=== PATIENT | female | born 1930 ===

== ENCOUNTER 2016-10-11 16:40 | Inpatient (IN) | payer MEDICARE, OTHER ==
[2016-10-11] MEDS ORDERED: cefTRIAXone(*) 1 GM in NS 0.9% 50 ML* 50 ML IVPB ONE (17:10)
[2016-10-11] MEDS ORDERED: NS 0.9% 1000 ML* 3,000 ML IV ONE (17:10)
[2016-10-11] MEDS ORDERED: Acetaminophen TAB* 325 MG PO ONE (17:10)
[2016-10-11] MEDS ORDERED: Azithromycin IV(*) 500 MG in NS 0.9% 250 ML* 250 ML IVPB ONE (17:11)
[2016-10-11] MEDS ORDERED: Albuterol/Ipratropium NEB.SOL* Albuterol 2.5 MG/Ipratropium 0.5 MG 3 ML INH ONE (17:12)
[2016-10-11 17:27] LABS: Hematocrit 42 % (35-47); Hemoglobin 13.7 g/dl (12.0-16.0); Mean Corpuscular HGB Conc 33 g/dl (31-36); Mean Corpuscular Hemoglobin 30 pg (27-31); Mean Corpuscular Volume 91 fL (80-97); Mean Platelet Volume 8 um3 (7.4-10.4); Red Blood Count 4.59 10^6/ul (4.0-5.4); Red Cell Distribution Width 14 % (10.5-15); White Blood Count 13.1 10^3/ul (3.5-10.8)
[2016-10-11 17:30] LABS: Add Diff/Slide Review? Slide Review Added; Comments Flag Yes
[2016-10-11 17:42] LABS: Albumin 3.2 g/dL (3.2-5.2); BUN/Creatinine Ratio 30.2 (8-20); Calcium 7.5 mg/dL (8.6-10.3); EGFR African American 70.9 (>60); EGFR Non-African American 55.1 (>60); Globulin 3.7 g/dL (2-4); Potassium 3.2 mmol/L (3.5-5.0); Total Bilirubin 1.6 mg/dL (0.2-1.0); Total Protein 6.9 g/dL (6.4-8.9)
[2016-10-11 17:44] LABS: Troponin I 0.03 ng/mL (<0.04)
--- NOTE | 2016-10-11 18:03 | RAD ---
Indication: Shortness of breath, pneumonia. Cough and fever. Single frontal view of the chest performed at 1730 hours was reviewed. Comparison is made with previous exam dated June 21, 2012. No mediastinal shift is noted. Mild cardiomegaly is noted. There may BE early airspace disease in the lung bases which may represent bibasilar pneumonia. Pacemaker leads are in place. IMPRESSION: FINDINGS CONSISTENT WITH BIBASILAR PNEUMONIA IN THE LUNG BASES. PACEMAKER LEADS ARE IN PLACE.
[2016-10-11 18:08] LABS: Immature Granulocytes 13 % (0-9); Neutrophil % 64 % (38-83); Reactive Lymph % 2 % (0-6)
[2016-10-11 18:09] LABS: Hypochromasia 1+; Macrocytosis 1+; Polychromasia 1+
[2016-10-11] MEDS ORDERED: Benzonatate CAP* 100 MG PO ONE (18:17)
[2016-10-11] MEDS ORDERED: guaiFENesin LIQ* 100 MG/5 ML UDC PO ONE (18:18)
[2016-10-11 18:31] LABS: C Reactive Protein 340.21 mg/L (< 5.00)
--- NOTE | 2016-10-11 18:55 | ED ---
Susan Barnes Matthew, scribed for Song Hughes MD on 10/11/16 at 1802 . Shortness of Breath - HPI Summary HPI Summary: An 86 y/o female presents to the ED with SOB since a week ago. The patient was sent by her PCP to r/o pneumonia. Associated symptoms include cough, fever, chills, and body aches. The patient denies vomiting. She has a Hx of a pacemaker and recent DVT. She is currently on xaerlto. The patient had diarrhea after drinking boast. She received her flu shot his year. The patient lives alone. No Hx of CHF, ashtma, COPD, diabetes - History of Current Complaint Chief Complaint: EDShortnessOfBreath Hx Obtained From: Patient Onset/Duration: Gradual Onset, Lasting Weeks, Still Present Timing: Constant Current Severity: Moderate Dyspnea At: Rest Aggrevating Factors: Nothing Alleviating Factors: Nothing Associated Signs & Symptoms: Cough (Productive), Fever, Chills - Allergy/Home Medications Allergies/Adverse Reactions: Allergies Allergy/AdvReac Type Severity Reaction Status Date / Time Codeine Allergy Unknown Unknown Verified 06/21/12 22:59 Reaction Details Home Medications: Home Medications Acetaminophen TAB* [Tylenol TAB*] 650 mg PO Q6H PRN 10/11/16 [History Confirmed 10/11/16] Calcium & Phosphorus W/ Vitami [Citracal Calcium Gummies] 2 chw PO DAILY [History Confirmed 10/11/16] Oxybutynin XL TAB* [Ditropan XL TAB*] 5 - 10 mg PO DAILY 10/11/16 [History Confirmed 10/11/16] Pediatric Multiple Vitamin W/ [Multivitamin Gummies Chil] 2 chw PO DAILY [History Confirmed 10/11/16] Rivaroxaban TAB(*) [Xarelto 20 mg] 20 mg PO DAILY 10/11/16 [History Confirmed ] Sucralfate SUSP (NF) [Carafate SUSP (NF)] 5 ml PO BEDTIME 10/11/16 [History Confirmed 10/11/16] Valsartan/HCTZ 160/12.5(NF) [Diovan Hct 160/12.5(NF)] 1 tab PO DAILY 10/11/16 [ History Confirmed 10/11/16] guaiFENesin/CODIEN 100MG-10MG* [Robitussin AC 100Mg-10Mg*] 10 ml PO Q4H PRN [History Confirmed 10/11/16] PMH/Surg Hx/FS Hx/Imm Hx Cardiovascular History: Reports: Hx Hypertension, Hx Pacemaker/ICD Infectious Disease History: No Infectious Disease History: Reports: Hx Shingles Denies: Traveled Outside the [place] in Last 30 Days - Family History Family History: Medical records reviewed and indicative for FHx of longevity in her mother. Father in his 30's secondary to MVA - Social History Lives: With Family Alcohol Use: None Substance Use Type: Reports: None Hx Tobacco Use: No Review of Systems All Other Systems Reviewed And Are Negative: Yes Physical Exam - Summary Physical Exam Summary: The patient is well-nourished in no acute distress and in no acute pain. The skin is had decreased turgor. HEENT: The head is normocephalic and atraumatic. The pupils are equal and reactive. The conjunctivae are clear and without drainage. Nares are patent and without drainage. Mouth reveals dry mucous membranes and the throat is without erythema and exudate. The external ears are intact. The ear canals are patent and without drainage. The tympanic membranes are intact. Neck is supple with full range of motion and non-tender. There are no carotid bruits. There is no neck vein distension. Respiratory: Chest is non-tender. The patient has diffuse rales, rhonchi, and wheezing. Cardiovascular: Heart is regular rate and rhythm. There is a murmur appreciated. No rub auscultated. There is no peripheral edema and pulses are symmetrical and equal. Abdomen: The abdomen is soft and non-tender. There are normal bowel sounds heard in all four quadrants and there is no organomegaly palpated. Musculoskeletal: There is no back pain noted. Extremities are non-tender with full range of motion. There is 3 second capillary refill. There is no peripheral edema or calf tenderness elicited. Neurological: Patient is alert and oriented to person, place and time. The patient has symmetrical motor strength in all four extremities. Cranial nerves are grossly intact. Deep tendon reflexes are symmetrical and equal in all four extremities. Psychiatric: The patient has an appropriate affect and does not exhibit any anxiety or depression. Triage Information Reviewed: Yes Vital Signs On Initial Exam: Initial Vitals Temp Pulse Resp BP Pulse Ox 100.7 F 100 24 119/58 88 10/11/16 16:42 10/11/16 16:42 10/11/16 16:42 10/11/16 16:42 10/11/16 16:42 Vital Signs Reviewed: Yes Diagnostics - Vital Signs Vital Signs Temp Pulse Resp BP Pulse Ox 10/11/16 16:42 100.7 F 100 24 119/58 88 - Laboratory Lab Results: Lab Results 10/11/16 10/11/16 10/11/16 Range/Units 17:11 17:11 17:11 WBC 13.1 H (3.5-10.8) 10^3/ul RBC 4.59 (4.0-5.4) 10^6/ul Hgb 13.7 (12.0-16.0) g/dl Hct 42 (35-47) % MCV 91 (80-97) fL MCH 30 (27-31) pg MCHC 33 (31-36) g/dl RDW 14 (10.5-15) % Plt Count 324 (150-450) 10^3/ul MPV 8 (7.4-10.4) um3 Immature Gran % (Auto) 13 H (0-9) % Neut % (Auto) 80.7 (38-83) % Lymph % (Auto) 5.4 L (25-47) % [place] % (Auto) 13.7 H (1-9) % Eos % (Auto) 0 (0-6) % Baso % (Auto) 0.2 (0-2) % Absolute Neuts (auto) 10.6 H (1.5-7.7) 10^3/ul Absolute Lymphs (auto) 0.7 L (1.0-4.8) 10^3/ul Absolute Monos (auto) 1.8 H (0-0.8) 10^3/ul Absolute Eos (auto) 0 (0-0.6) 10^3/ul Absolute Basos (auto) 0 (0-0.2) 10^3/ul Absolute Nucleated RBC 0 10^3/ul Neutrophils % 64 (38-83) % Band Neutrophils % 13 H (0-8) % Lymphocytes % 8 L (25-47) % Reactive Lymphs % 2 (0-6) % Monocytes % 13 (0-13) % Nucleated RBC % 0 Normal RBC Morphology Not Reportable Polychromasia 1+ Hypochromasia 1+ Macrocytosis 1+ INR (Anticoag Therapy) 2.94 H (0.89-1.11) APTT 38.7 H (26.0-36.3) seconds Sodium 134 (133-145) mmol/L Potassium 3.2 L (3.5-5.0) mmol/L Chloride 99 L (101-111) mmol/L Carbon Dioxide 21 L (22-32) mmol/L Anion Gap 14 H (2-11) mmol/L BUN 29 H (6-24) mg/dL Creatinine 0.96 H (0.51-0.95) mg/dL Est GFR ( Amer) 70.9 (>60) Est GFR (Non-Af Amer) 55.1 (>60) BUN/Creatinine Ratio 30.2 H (8-20) Glucose 121 H (70-100) mg/dL Lactic Acid (0.5-2.0) mmol/L Calcium 7.5 L (8.6-10.3) mg/dL Total Bilirubin 1.60 H (0.2-1.0) mg/dL AST 28 (13-39) U/L ALT 16 (7-52) U/L Alkaline Phosphatase 90 (34-104) U/L Troponin I 0.03 (<0.04) ng/mL C-Reactive Protein 340.21 H (< 5.00) mg/L Total Protein 6.9 (6.4-8.9) g/dL Albumin 3.2 (3.2-5.2) g/dL Globulin 3.7 (2-4) g/dL Albumin/Globulin Ratio 0.9 L (1-3) Influenza A (Rapid) (Negative) Influenza B (Rapid) (Negative) 10/11/16 10/11/16 Range/Units 17:11 18:14 WBC (3.5-10.8) 10^3/ul RBC (4.0-5.4) 10^6/ul Hgb (12.0-16.0) g/dl Hct (35-47) % MCV (80-97) fL MCH (27-31) pg MCHC (31-36) g/dl RDW (10.5-15) % Plt Count (150-450) 10^3/ul MPV (7.4-10.4) um3 Immature Gran % (Auto) (0-9) % Neut % (Auto) (38-83) % Lymph % (Auto) (25-47) % [place] % (Auto) (1-9) % Eos % (Auto) (0-6) % Baso % (Auto) (0-2) % Absolute Neuts (auto) (1.5-7.7) 10^3/ul Absolute Lymphs (auto) (1.0-4.8) 10^3/ul Absolute Monos (auto) (0-0.8) 10^3/ul Absolute Eos (auto) (0-0.6) 10^3/ul Absolute Basos (auto) (0-0.2) 10^3/ul Absolute Nucleated RBC 10^3/ul Neutrophils % (38-83) % Band Neutrophils % (0-8) % Lymphocytes % (25-47) % Reactive Lymphs % (0-6) % Monocytes % (0-13) % Nucleated RBC % Normal RBC Morphology Polychromasia Hypochromasia Macrocytosis INR (Anticoag Therapy) (0.89-1.11) APTT (26.0-36.3) seconds Sodium (133-145) mmol/L Potassium (3.5-5.0) mmol/L Chloride (101-111) mmol/L Carbon Dioxide (22-32) mmol/L Anion Gap (2-11) mmol/L BUN (6-24) mg/dL Creatinine (0.51-0.95) mg/dL Est GFR ( Amer) (>60) Est GFR (Non-Af Amer) (>60) BUN/Creatinine Ratio (8-20) Glucose (70-100) mg/dL Lactic Acid 1.4 (0.5-2.0) mmol/L Calcium (8.6-10.3) mg/dL Total Bilirubin (0.2-1.0) mg/dL AST (13-39) U/L ALT (7-52) U/L Alkaline Phosphatase (34-104) U/L Troponin I (<0.04) ng/mL C-Reactive Protein (< 5.00) mg/L Total Protein (6.4-8.9) g/dL Albumin (3.2-5.2) g/dL Globulin (2-4) g/dL Albumin/Globulin Ratio (1-3) Influenza A (Rapid) Negative (Negative) Influenza B (Rapid) Negative (Negative) Result Diagrams: 10/11/16 17:11 10/11/16 17:11 Lab Statement: Any lab studies that have been ordered have been reviewed, and results considered in the medical decision making process. - Radiology CXR Xray Interpretation: Positive (See Comments) - IMPRESSION: FINDINGS CONSISTENT WITH BIBASILAR PNEUMONIA IN THE LUNG BASES. PACEMAKER LEADS ARE IN PLACE. Radiology Interpretation Completed By: Radiologist - EKG 16:58 Cardiac Rate: NL - 93 bpm EKG Interpretation: Paced Rhythm Course/Dx - Course Assessment/Plan: An 86 y/o female presents to the ED with SOB since a week ago. The patient was sent by her PCP to r/o pneumonia. Associated symptoms include cough, fever, chills, and body aches. The patient denies vomiting. CXR shows bibasilar pneumonia in the lung bases. EKG shows paced rhythm at 93 bpm. Labs were reviewed. Discussed the case with Dr. Marie who will admit the patient into their services. - Diagnoses Differential Diagnosis/HQI/PQRI: Positive: Bronchitis, VT, Pneumonia, Other - sepsis Provider Diagnoses: Pneumonia, Sepsis - Physician Notifications Discussed Care of Patient With: Dr. Marie (Hospitalist) at 18:28 -- Notified of patient's history and will admit the patinet. Discharge - Discharge Plan Condition: Stable Disposition: ADMITTED TO [facility] Referrals: Keena Isaac MD [Primary Care Provider] - The documentation as recorded by the Susan real Matthew accurately reflects the service I personally performed and the decisions made by , Song Hughes MD.
[2016-10-11] MEDS: KCL 10 MEQ/50 ML IVPREMIX* 10 MEQ/50 ML BAG IV SCH ×2 (20:12→21:29)
[2016-10-11] MEDS: NS 0.9% 1000 ML* 1,000 ML IV SCH (20:12)
[2016-10-11] MEDS: Benzocaine/Menthol LOZ* 1 LOZENGE MT PRN ×2 (20:23→23:39)
[2016-10-11] MEDS: Benzonatate CAP* 100 MG PO SCH (20:23)
[2016-10-11] MEDS: Acetaminophen TAB* 325 MG PO PRN (20:23)
[2016-10-11] MEDS: methylPREDNISolone SOD SUCC* 125 MG 2 ML VIAL IV SCH (20:37)
--- NOTE | 2016-10-11 20:47 | HP ---
HOSPITAL MEDICINE HISTORY AND PHYSICAL: DATE OF ADMISSION: 10/11/16 PRIMARY CARE PHYSICIAN: Keena Isaac MD ATTENDING PHYSICIAN: Prosper Marie MD *(dictation provided by Sheree Valente NP) . CHIEF COMPLAINT: Cough, headache, shortness of breath. HISTORY OF PRESENT ILLNESS: Ms. Tello is an 86-year-old female with a past medical history of recent diagnosis of DVT, on Xarelto as well as history of pacemaker for complete heart block, history of CVA and aortic stenosis who presents to the hospital from Dr. Isaac's office with a concern for cough, headache and shortness of breath. Ms. Tello states she has been feeling unwell for about a week. In addition to cough, headache and shortness of breath, she has had some nausea, but no vomiting. She went to Dr. Isaac's office today for evaluation. At that time, she was noted to have a fever of 102.7. She also had a O2 saturation in the low 80s on room air. Her chest x-ray at the office showed an infiltrate on the right side. She was therefore transported by EMS to [facility]. In the emergency room, Ms. Tello was found to have a leukocytosis with a white blood cell count of 13, but also bandemia of 13. Her CRP was dramatically elevated at 340.21. Her flu swab was negative. Chest x-ray repeated here shows bibasilar pneumonia. Her O2 saturation was running in the low 80s on room air. She is now on 10 L nasal cannula saturating at approximately 92%. She has a nonproductive though frequent and quite bothersome cough. Based on Ms. Tello's presentation with concern for pneumonia and acute hypoxic respiratory failure, Hospital Medicine was called regarding admission. PAST MEDICAL HISTORY: 1. DVT, diagnosed 08/30/16, currently on Xarelto (the patient has a history of previous DVT x2). 2. Pacemaker for complete heart block. 3. Hypertension. 4. Asthma. 5. Cholecystectomy. 6. History of subtotal parathyroidectomy. 7. History of aortic valve stenosis. 8. History of CVA. 9. History of shingles. 10. History of Schatzki's ring. 11. GERD. 12. Hiatal hernia. MEDICATIONS: 1. Tylenol 650 mg p.o. q.6 hours p.r.n. 2. Citracal calcium 2 chewable tabs p.o. daily. 3. Esomeprazole 40 mg p.o. b.i.d. 4. Oxybutynin 5 to 10 mg p.o. daily. 5. Multivitamin 2 chewable tabs p.o. daily. 6. Sucralfate 5 mL p.o. at bedtime. 7. Valsartan/hydrochlorothiazide 160/12.5 one tab p.o. daily. 8. Guaifenesin with codeine 10 mL p.o. q.4 hours p.r.n. 9. Rivaroxaban 20 mg p.o. daily. ALLERGIES: To CODEINE. FAMILY HISTORY: The patient reports the mother at 96 from likely heart attack. Father in his 30s in a car accident. SOCIAL HISTORY: No reported alcohol, tobacco, or drug use. The patient lives alone, states that her son would be the healthcare proxy. REVIEW OF SYSTEMS: A 14-point review of systems was completed with Ms. Tello and all those not mentioned above were negative. PHYSICAL EXAMINATION GENERAL: Ms. Tello is lying in the bed. She is coughing constantly, but in no acute distress. VITAL SIGNS: Temperature 98.6, heart rate 94, temperature on arrival was 100.7 , respiratory rate 20, O2 saturation 92% on 10 L nasal cannula, blood pressure 97/82. LUNGS: Clear, but very diminished bilaterally. HEART: S1, S2. No murmur, rub, or gallop. ABDOMEN: Soft, nontender with bowel sounds positive x4. EXTREMITIES: No cyanosis or edema. NEUROLOGIC: She is alert and oriented x3. She moves all extremities equally. There is no facial asymmetry or focal weakness. Extraocular movements are intact. SKIN: Intact. DIAGNOSTIC STUDIES/LAB DATA: Sodium 134, potassium 3.2, chloride 99, serum bicarbonate 21, BUN 29, creatinine 0.96, glucose 121. White blood cell count 13.1, hemoglobin 13.7, hematocrit 42, platelets 324. CRP 340.21. Chest x-ray shows bibasilar pneumonia. EKG shows heart rate at 90 and paced. ASSESSMENT AND PLAN: Ms. Telol is an 86-year-old female with a past medical history of pacemaker for heart block, recent deep venous thrombosis, on Xarelto and hypertension who presents today to the emergency room with concern for cough , headache, shortness of breath, found to have fever, leukocytosis with bandemia , bibasilar pneumonia on chest x-ray and acute hypoxic respiratory failure currently with 10 L oxygen requirement. Our plans are for admission to the intensive care unit for the following inpatient status. 1. Acute hypoxemic respiratory failure secondary to pneumonia. The patient is saturating approximately 92% to 93% on 10 L face mask at this point; however, she is taking it off frequently due to the severe cough. Plans are for her likely to go on for Vapotherm as I think she will be more comfortable on that through the night. I have contacted Respiratory Therapy to assess and assist with her care. For pneumonia, the patient will have ceftriaxone and azithromycin. Her lactic acid is normal. Her blood cultures have been sent. The patient's cough is almost constant. She has a history of asthma. Her CRP is dramatically elevated and she is requiring ICU admission. I think therefore she would benefit from steroids and I am starting her on Solu-Medrol 60 mg q.12 hours. In terms of her cough, she will have Robitussin and Tessalon Perles and cough drops as well. 4. History of deep venous thrombosis. Plan to continue Xarelto. 5. History of hypertension. Plan to hold hydrochlorothiazide. 6. DVT prophylaxis with Xarelto, which will be renally dosed. 7. Code status is DNR, but the patient will accept a trial of intubation. 8. Disposition to ICU. TIME SPENT: Approximately 75 minutes were spent on the admission of this patient, more than half the time was spent with the patient at the bedside reviewing the events leading up to this hospitalization, performing the physical examination, and reviewing my plan of care. SHEREE VALENTE NP CC: Dr. Keena Isaac* [id number]/[facility] #: [id number] JAIRO
[2016-10-11] MEDS: GuaiFENesin DM* 5 ML UDC PO PRN (22:00)
[2016-10-11] MEDS ORDERED: diPHENhydraMINE IV* 50 MG/ML 1 ml VIAL (BENADRYL) IV ONE (23:43)
[2016-10-11] MEDS ORDERED: diPHENhydraMINE IV* 50 MG/ML 1 ml VIAL (BENADRYL) ONE (23:45)
[2016-10-12] MEDS: Benzonatate CAP* 100 MG PO SCH ×4 (00:33→20:28)
[2016-10-12] MEDS ORDERED: Morphine INJ* 2 MG/ML 1 ML SYRINGE ONE (02:33)
[2016-10-12] MEDS: Morphine INJ* 2 MG/ML 1 ML SYRINGE IV PRN ×3 (02:40→22:53)
[2016-10-12] MEDS: NS 0.9% 1000 ML* 1,000 ML IV SCH ×3 (02:55→16:22)
[2016-10-12] MEDS: GuaiFENesin DM* 5 ML UDC PO PRN ×4 (05:01→19:21)
[2016-10-12 06:57] LABS: Hematocrit 39 % (35-47); Hemoglobin 13.1 g/dl (12.0-16.0); Mean Corpuscular HGB Conc 33 g/dl (31-36); Mean Corpuscular Hemoglobin 31 pg (27-31); Mean Corpuscular Volume 92 fL (80-97); Mean Platelet Volume 8 um3 (7.4-10.4); Red Blood Count 4.28 10^6/ul (4.0-5.4); Red Cell Distribution Width 14 % (10.5-15); White Blood Count 9.6 10^3/ul (3.5-10.8)
[2016-10-12 07:00] LABS: Add Diff/Slide Review? Slide Review Added; Comments Flag Yes
[2016-10-12 07:24] LABS: BUN/Creatinine Ratio 31.3 (8-20); EGFR African American 107.3 (>60); EGFR Non-African American 83.5 (>60); Potassium 3.9 mmol/L (3.5-5.0)
[2016-10-12 07:34] LABS: Calcium 6.3 mg/dL (8.6-10.3)
[2016-10-12] MEDS: Omeprazole CAP* 20 MG PO SCH (08:03)
[2016-10-12] MEDS: methylPREDNISolone SOD SUCC* 125 MG 2 ML VIAL IV SCH ×2 (08:03→20:28)
[2016-10-12] MEDS: Benzocaine/Menthol LOZ* 1 LOZENGE MT PRN ×2 (08:04→22:27)
[2016-10-12] MEDS ORDERED: Iohexol 350* (CONTRAST) 500 ML MDV IV ONE (12:21)
--- NOTE | 2016-10-12 13:29 | RAD ---
Indication: Dyspnea and hypoxia with recent deep venous thrombosis. Contrast: Administered 69.1 ml of OMNIPAQUE 350 mg/ml CTA of the chest was performed without IV contrast demonstration. Coronal and sagittal reconstructed images were obtained. The pulmonary arterial tree is well opacified. There are no filling defects present to suggest pulmonary embolus. Inferior thyroid lobes are unremarkable. Subcarinal lymph nodes measure up to 12 mm. Right hilar lymph node measures up to 13 mm. Heart demonstrates no pericardial effusion. There is dense consolidation in the lung bases bilaterally consistent with bibasilar pneumonia. No pleural fluid is identified. The aorta demonstrates no evidence of aortic dissection. No aneurysmal dilatation. There is a hiatal hernia noted. The visualized abdominal organs are unremarkable. IMPRESSION: BIBASILAR AIRSPACE DISEASE CONSISTENT WITH BILATERAL PNEUMONIA. NO EVIDENCE OF PULMONARY EMBOLUS IS NOTED. THERE IS A HIATAL HERNIA NOTED.
[2016-10-12] MEDS: oxyCODONE TAB* 5 MG TAB PO PRN ×2 (14:36→20:28)
--- NOTE | 2016-10-12 15:24 | ECHO ---
Patient: TRUMAN COOPER [facility] Rec#: [id number] : 1930 Date: 10/12/2016 Age: 86y Height: 157 cm / 61.8 in Weight: 78 kg / 171.9 lbs Sex: F BSA: 1.79 Room#: [facility] Admit Date#: 10/11/2016 Type: Inpatient Referring: Pinky Duenas MD Reading: Chaz Vaca DO Reading: Chaz Vaca DO Arch Support Maker: Tony Stallworth RDCS CC: Keena Isaac MD Transthoracic Echocardiogram Indication: Dypnea,Hypoxia BP: 134/66 HR: 72 Rhythm: NSR Findings History: HTN,CVA,GERD,Pacemarker,completed heart block. Technical Comments: The study quality is fair. Left Ventricle: The left ventricular chamber size is normal. Mild concentric left ventricular hypertrophy is observed. There is normal left ventricular systolic function. The estimated ejection fraction is 55-60%. There is abnormal ventricular septal wall motion consistent with right ventricular pacemaker. Abnormal left ventricular diastolic filling is observed, consistent with impaired relaxation. Left Atrium: The left atrial chamber size is normal. Right Ventricle: The right ventricular chamber size and systolic function are within normal limits. A pacemaker wire is visualized in the right ventricle. Right Atrium: The right atrial cavity size is normal. Aortic Valve: The aortic valve structure is normal. Moderate aortic leaflet calcification is visualized. There is aortic annular calcification. There is no evidence of aortic regurgitation. There is mild aortic stenosis. Mitral Valve: Moderate mitral annular calcification present. There is mild to moderate mitral regurgitation. There is no evidence of mitral stenosis. Tricuspid Valve: There is mild to moderate tricuspid regurgitation. There is evidence of mild pulmonary hypertension. There is no tricuspid stenosis. Pulmonic Valve: The pulmonic valve structure is not well visualized. There is a trace pulmonic regurgitation. There is no pulmonic stenosis. Pericardium: There is no significant pericardial effusion. Aorta: There is no dilatation of the ascending aorta. There is no dilatation of the aortic arch. There is no dilation of the aortic root. Pulmonary Artery: The main pulmonary artery is not well visualized. Venous: The inferior vena cava is dilated. There is a greater than 50% respiratory change in the inferior vena cava dimension. Conclusions The left ventricular chamber size is normal. Mild concentric left ventricular hypertrophy is observed. There is normal left ventricular systolic function. The estimated ejection fraction is 55-60%. The left atrial chamber size is normal. The right ventricular chamber size and systolic function are within normal limits. A pacemaker wire is visualized in the right ventricle. There is mild aortic stenosis. Moderate mitral annular calcification present. There is mild to moderate mitral regurgitation. There is mild aortic stenosis. There is evidence of mild pulmonary hypertension. There is mild to moderate tricuspid regurgitation. No prior echocardiogram available for comparsion at time of interpretation. Measurements Name Value Normal Range RVIDd (AP) 2D 2.2 cm (0.9 - 2.6) RVDdMajor (2D) 2.6 cm (2.2 - 4.4) RAd ISD 4CH 5.1 cm (3.4 - 4.9) RA (A4C)W 3.5 cm (2.9 - 4.6) IVSd (2D) 1.3 cm (0.6 - 1) LVPWd (2D) 0.8 cm (0.6 - 1) LVIDd (2D) 4.3 cm (3.6 - 5.4) LVIDs (2D) 3.1 cm - LV FS (2D) 27 % (25 - 45) Aortic Annulus 1.4 cm (1.4 - 2.6) Ao root diameter (2D) 3.3 cm (2.1 - 3.5) Ascending Ao 3.2 cm (2.1 - 3.4) Aortic arch 1.5 cm (1.8 - 3.4) LA dimension (AP) 2D 3.7 cm (2.3 - 3.8) LAd ISD 4CH 5.9 cm (2.9 - 5.3) LA ISD 4CH W 3.2 cm (2.5 - 4.5) Name Value Normal Range LA ESV SP 4CH (A/L) 52 ml - LA ESV SP 2CH (A/L) 52 ml - LA ESV BP (A/L) 53 ml - LA ESV BP (A/L) index 29.66 ml/m2 - LA ESV SP 4CH (MOD) 47 ml - LA ESV SP 2CH (MOD) 49 ml - Name Value Normal Range MV E-wave Vmax 0.85 m/sec - MV deceleration time 137 msec - MV A-wave Vmax 1.09 m/sec - MV E:A ratio 0.78 ratio - LV septal e' Vmax 0.08 m/sec - LV lateral e' Vmax 0.08 m/sec - LV E:e' septal ratio 10.6 ratio - LV E:e' lateral ratio 10.6 ratio - Name Value Normal Range AV Vmax 2.1 m/sec - AV mean gradient 12 mmHg - LVOT diameter 1.5 cm - LVOT Vmax 0.9 m/sec - Name Value Normal Range TR Vmax 2.7 m/sec - TR peak gradient 23 mmHg - RAP 45 mmHg - RVSP 44.16 mmHg - IVC diameter 2.5 cm - Name Value Normal Range PV Vmax 0.6 m/sec -
--- NOTE | 2016-10-12 15:42 | PN ---
Subjective Date of Service: 10/12/16 Interval History: HOSPITALIST PROGRESS NOTE Patient seen and examined at bedside. She feels a little better this AM. Still dyspneic, but a little more comfortable. Cough is less frequent at this point. Family History: Unchanged from Admission Social History: Unchanged from Admission Past Medical History: Unchanged from Admission Objective Active Medications: Acetaminophen (Tylenol Tab*) 650 mg PO Q6H PRN PRN Reason: pain/fever Last Admin: 10/11/16 20:23 Dose: 650 mg Benzonatate (Tessalon Cap*) 200 mg PO TID [facility] Last Admin: 10/12/16 15:36 Dose: 200 mg Guaifenesin/Dextromethorphan (Robitussin Dm*) 10 ml PO Q4H PRN PRN Reason: COUGH Last Admin: 10/12/16 14:36 Dose: 10 ml Ceftriaxone Sodium 1,000 mg/ (Sodium Chloride) 50 mls @ 200 mls/hr IVPB Q24H [facility] Azithromycin 500 mg/ Sodium (Chloride) 250 mls @ 250 mls/hr IVPB Q24H [facility] Sodium Chloride (Ns 0.9% 1000 Ml*) 1,000 mls @ 150 mls/hr IV PER RATE [facility] Last Admin: 10/12/16 08:03 Dose: 150 mls/hr Methylprednisolone Sodium Succinate (Solu-Medrol*) 60 mg IV Q12H [facility] Last Admin: 10/12/16 08:03 Dose: 60 mg Morphine Sulfate (Morphine Inj (Syringe)*) 2 mg IV Q2H PRN PRN Reason: air hunger Last Admin: 10/12/16 02:40 Dose: 2 mg Omeprazole (Prilosec Cap*) 20 mg PO DAILY@0600 [facility] Last Admin: 10/12/16 08:03 Dose: 20 mg Oxycodone HCl (Roxycodone Tab*) 5 mg PO Q6H PRN PRN Reason: Severe cough/Severe pain Last Admin: 10/12/16 14:36 Dose: 5 mg Rivaroxaban (Xarelto(*)) 15 mg PO 1700 [facility] Throat Lozenges (Chloraseptic Kaykay*) 1 kaykay MT Q4H PRN PRN Reason: COUGH Last Admin: 10/12/16 08:04 Dose: 1 kaykay Vital Signs 02/24/17 02/24/17 14:00 15:00 Temperature 98.0 F 97.4 F Pulse Rate 75 69 Respiratory 18 Rate Blood Pressure (mmHg) O2 Sat by Pulse 88 90 Oximetry Oxygen Devices in Use Now: High Flow Nasal Cannula - [place] 13 liters Appearance: Pleasant elderly lady lying in bed in NAD. Eyes: No Scleral Icterus Ears/Nose/Mouth/Throat: Mucous Membranes Moist Neck: Trachea Midline Respiratory: Symmetrical Chest Expansion and Respiratory Effort, - - BS+ bilaterally coarse with scattered rhonchi Cardiovascular: RRR - Normal S1 and S2 Abdominal: NL Sounds; No Tenderness; No Distention Extremities: No Edema Neurological: Alert and Oriented x 3, NL Muscle Strength and Tone Lines/Tubes/Other Access: Clean, Dry and Intact Peripheral IV Nutrition: Taking PO's Result Diagrams: 10/12/16 06:31 10/12/16 06:31 Assess/Plan/Problems-Billing Assessment: Mrs. 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 - Patient Problems (1) Acute hypoxemic respiratory failure Comment: - Secondary to pneumonia. - Continue supplemental O2 - will likely need Vapotherm. (2) Severe sepsis Comment: - Met sepsis criteria on admission with leukocytosis (with bandemia), tachypnea, fever, and tachycardia. - qSOFA is 1 (tachypnea). - Source is pneumonia. (3) Pneumonia Comment: - CTA chest was negative for PE. It showed bibasilar infiltrates suggestive of pneumonia. - Influenza is negative. - Blood cultures, Legionella and pneumococcal Ag pending. - Continue IVF, Ceftriaxone, Zithromax, and steroids. (4) SWAPNIL (acute kidney injury) Comment: - Likely pre-renal. - Improving with IVF. (5) DVT (deep venous thrombosis) Comment: - Continue Xarelto, but adjust dose to improving renal function. (6) Hypocalcemia Comment: - Check albumin and ionized calcium. (7) DVT prophylaxis Comment: - Xarelto. (8) DNR (do not resuscitate) Comment: - But agreeable with trial of intubation. Status and Disposition: Inpatient. Continue management in ICU. Son updated at bedside.
[2016-10-12] MEDS: cefTRIAXone VIAL(*) 1,000 MG in NS 0.9% 50 ML* 50 ML IVPB SCH (16:23)
[2016-10-12 16:24] LABS: Albumin 2.7 g/dL (3.2-5.2)
[2016-10-12] MEDS ORDERED: Calcium Gluconate INJ* 1 GM in NS 0.9% 50 ML* 50 ML IVPB ONE (16:30)
[2016-10-12] MEDS ORDERED: Rivaroxaban TAB(*) 15 MG PO SCH (17:00)
[2016-10-12] MEDS: Azithromycin IV(*) 500 MG in NS 0.9% 250 ML* 250 ML IVPB SCH (17:09)
[2016-10-12 17:26] LABS: Urine Bacteria Absent (Absent); Urine Bilirubin Negative (Negative); Urine Glucose Negative (Negative); Urine Nitrite Negative (Negative)
[2016-10-12] MEDS: Rivaroxaban TAB(*) 20 MG TAB PO SCH (18:04)
--- NOTE | 2016-10-12 19:07 | PN ---
Hospitalist Progress Note HOSPITALIST ADDENDUM Patient reevaluated at bedside. She is much more comfortable now on Vapotherm. Cough is controlled and she is feeling less dyspneic. PE: pleasant lady sitting up in bed eating dinner. SO2 96% on Vapotherm 40 liters FiO2 100%. Chest: BS+ bilaterally with bibasilar crackles. Will continue to monitor closely in ICU.
[2016-10-13] MEDS: Morphine INJ* 2 MG/ML 1 ML SYRINGE IV PRN ×6 (01:28→23:46)
[2016-10-13] MEDS: Benzocaine/Menthol LOZ* 1 LOZENGE MT PRN ×5 (03:08→22:19)
[2016-10-13] MEDS: oxyCODONE TAB* 5 MG TAB PO PRN ×3 (03:08→23:02)
[2016-10-13] MEDS: GuaiFENesin DM* 5 ML UDC PO PRN ×4 (03:09→21:55)
[2016-10-13 05:37] LABS: Hematocrit 40 % (35-47); Hemoglobin 13.2 g/dl (12.0-16.0); Mean Corpuscular HGB Conc 33 g/dl (31-36); Mean Corpuscular Hemoglobin 30 pg (27-31); Mean Corpuscular Volume 92 fL (80-97); Mean Platelet Volume 8 um3 (7.4-10.4); Red Blood Count 4.35 10^6/ul (4.0-5.4); Red Cell Distribution Width 15 % (10.5-15); White Blood Count 13.8 10^3/ul (3.5-10.8)
[2016-10-13 05:40] LABS: Add Diff/Slide Review? Slide Review Added; Comments Flag Yes
[2016-10-13 06:03] LABS: Albumin 2.7 g/dL (3.2-5.2); BUN/Creatinine Ratio 32.8 (8-20); C Reactive Protein 221.99 mg/L (< 5.00); Calcium 6.7 mg/dL (8.6-10.3); EGFR African American 113.2 (>60); Globulin 3.3 g/dL (2-4); Potassium 4.5 mmol/L (3.5-5.0); Total Bilirubin 0.5 mg/dL (0.2-1.0)
[2016-10-13] MEDS: Omeprazole CAP* 20 MG PO SCH (06:15)
[2016-10-13] MEDS: Benzonatate CAP* 100 MG PO SCH ×3 (09:10→20:04)
[2016-10-13] MEDS: methylPREDNISolone SOD SUCC* 125 MG 2 ML VIAL IV SCH ×2 (09:10→19:42)
--- NOTE | 2016-10-13 13:32 | PN ---
Subjective Date of Service: 10/13/16 Interval History: HOSPITALIST PROGRESS NOTE Patient seen and examined at bedside. She feels better today. Still has cough, but less frequent, feels comfortable with Vapotherm. Last night was the first night she was able to sleep in rest in a while. Family History: Unchanged from Admission Social History: Unchanged from Admission Past Medical History: Unchanged from Admission Objective Active Medications: Acetaminophen (Tylenol Tab*) 650 mg PO Q6H PRN PRN Reason: pain/fever Last Admin: 10/11/16 20:23 Dose: 650 mg Benzonatate (Tessalon Cap*) 200 mg PO TID [facility] Last Admin: 10/13/16 09:10 Dose: 200 mg Guaifenesin/Dextromethorphan (Robitussin Dm*) 10 ml PO Q4H PRN PRN Reason: COUGH Last Admin: 10/13/16 03:09 Dose: 10 ml Ceftriaxone Sodium 1,000 mg/ (Sodium Chloride) 50 mls @ 200 mls/hr IVPB Q24H [facility] Last Admin: 10/12/16 16:23 Dose: 200 mls/hr Azithromycin 500 mg/ Sodium (Chloride) 250 mls @ 250 mls/hr IVPB Q24H [facility] Last Admin: 10/12/16 17:09 Dose: 250 mls/hr Sodium Chloride (Ns 0.9% 1000 Ml*) 1,000 mls @ 100 mls/hr IV PER RATE [facility] Last Admin: 10/12/16 16:22 Dose: 100 mls/hr Methylprednisolone Sodium Succinate (Solu-Medrol*) 60 mg IV Q12H [facility] Last Admin: 10/13/16 09:10 Dose: 60 mg Morphine Sulfate (Morphine Inj (Syringe)*) 2 mg IV Q2H PRN PRN Reason: air hunger Last Admin: 10/13/16 09:10 Dose: 2 mg Omeprazole (Prilosec Cap*) 20 mg PO DAILY@0600 [facility] Last Admin: 10/13/16 06:15 Dose: 20 mg Oxycodone HCl (Roxycodone Tab*) 5 mg PO Q6H PRN PRN Reason: Severe cough/Severe pain Last Admin: 10/13/16 03:08 Dose: 5 mg Rivaroxaban (Xarelto (*)) 20 mg PO DAILY@1700 [facility] Last Admin: 10/12/16 18:04 Dose: 20 mg Throat Lozenges (Chloraseptic Kaykay*) 1 kaykay MT Q4H PRN PRN Reason: COUGH Last Admin: 10/13/16 09:10 Dose: 1 kaykay Vital Signs 10/13/16 10/13/16 11:00 12:00 Temperature 97.9 F 97.5 F Pulse Rate 66 60 Respiratory 19 18 Rate Blood Pressure 124/89 121/67 (mmHg) O2 Sat by Pulse 92 90 Oximetry Oxygen Devices in Use Now: High Flow Nasal Cannula - Vapotherm 40 liters FiO2 100% Appearance: Pleasant elderly lady sitting up in bed in NAD. Eyes: No Scleral Icterus Ears/Nose/Mouth/Throat: Mucous Membranes Moist Neck: Trachea Midline Respiratory: Symmetrical Chest Expansion and Respiratory Effort, - - BS+ bilaterally with scattered rhonchi, decreased in both bases Cardiovascular: RRR - Normal S1 and S2 Abdominal: NL Sounds; No Tenderness; No Distention Extremities: No Edema Neurological: Alert and Oriented x 3, NL Muscle Strength and Tone Lines/Tubes/Other Access: Clean, Dry and Intact Peripheral IV Nutrition: Taking PO's Result Diagrams: 10/13/16 05:20 10/13/16 05:20 Microbiology and Other Data: Microbiology 10/12/16 17:00 Legionella Urinary Antigen - Final Urine Negative Legionella Streptococcus pneumoniae Ag Screen - Final Negative S. pneumo Antigen 10/11/16 20:19 Aerobic Blood Culture - Preliminary Blood Venous No Growth Day 1 Anaerobic Blood Culture - Preliminary No Growth Day 1 Assess/Plan/Problems-Billing Assessment: Mrs. 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 - Patient Problems (1) Acute hypoxemic respiratory failure Comment: - Secondary to pneumonia. - Continue supplemental O2 - will try to titrate Vapotherm down. (2) Severe sepsis Comment: - Met sepsis criteria on admission with leukocytosis (with bandemia), tachypnea, fever, and tachycardia. - qSOFA is 1 (tachypnea). - Source is pneumonia. (3) Pneumonia Comment: - CTA chest was negative for PE. It showed bibasilar infiltrates suggestive of pneumonia. - Influenza is negative. - Blood cultures show no growth so far, Legionella and pneumococcal Ag are negative. - Continue IVF, Ceftriaxone, Zithromax, and steroids. (4) SWAPNIL (acute kidney injury) Comment: - Likely pre-renal. - Improving with IVF. (5) DVT (deep venous thrombosis) Comment: - Xarelto. (6) Hypocalcemia Comment: - Check albumin and ionized calcium. - Replete. (7) DVT prophylaxis Comment: - Xarelto. (8) DNR (do not resuscitate) Comment: - But agreeable with trial of intubation. Status and Disposition: Inpatient. Continue management in ICU.
[2016-10-13] MEDS ORDERED: Calcium Gluconate INJ* 1 GM in NS 0.9% 50 ML* 50 ML IVPB ONE (14:00)
[2016-10-13] MEDS: cefTRIAXone VIAL(*) 1,000 MG in NS 0.9% 50 ML* 50 ML IVPB SCH (16:13)
[2016-10-13] MEDS: Azithromycin IV(*) 500 MG in NS 0.9% 250 ML* 250 ML IVPB SCH (17:13)
[2016-10-13] MEDS: Rivaroxaban TAB(*) 20 MG TAB PO SCH (17:13)
[2016-10-14] MEDS: NS 0.9% 1000 ML* 1,000 ML IV SCH ×2 (00:47→11:39)
[2016-10-14] MEDS: Morphine INJ* 2 MG/ML 1 ML SYRINGE IV PRN ×5 (02:07→20:02)
[2016-10-14] MEDS: GuaiFENesin DM* 5 ML UDC PO PRN ×3 (02:42→14:23)
[2016-10-14] MEDS: Benzocaine/Menthol LOZ* 1 LOZENGE MT PRN ×3 (02:42→14:23)
[2016-10-14 04:39] LABS: Hematocrit 39 % (35-47); Hemoglobin 12.7 g/dl (12.0-16.0); Mean Corpuscular HGB Conc 33 g/dl (31-36); Mean Corpuscular Hemoglobin 30 pg (27-31); Mean Corpuscular Volume 93 fL (80-97); Mean Platelet Volume 8 um3 (7.4-10.4); Red Cell Distribution Width 15 % (10.5-15); White Blood Count 16.9 10^3/ul (3.5-10.8)
[2016-10-14 04:55] LABS: BUN/Creatinine Ratio 32.8 (8-20); C Reactive Protein 118.39 mg/L (< 5.00); Calcium 6.5 mg/dL (8.6-10.3); EGFR African American 113.2 (>60); Potassium 4.4 mmol/L (3.5-5.0)
[2016-10-14] MEDS: Omeprazole CAP* 20 MG PO SCH (05:50)
--- NOTE | 2016-10-14 08:20 | PN ---
Subjective Date of Service: 10/14/16 Interval History: HOSPITALIST PROGRESS NOTE Patient seen and examined at bedside. Her oxygen was weaned down to FiO2 60% yesterday during the day, but she had higher requirements during the night and is now back at 90%. She feels much improved. Feels comfortable, "I slept like a log". Major complaint is of dry cough paroxysms. Family History: Unchanged from Admission Social History: Unchanged from Admission Past Medical History: Unchanged from Admission Objective Active Medications: Acetaminophen (Tylenol Tab*) 650 mg PO Q6H PRN PRN Reason: pain/fever Last Admin: 10/11/16 20:23 Dose: 650 mg Benzonatate (Tessalon Cap*) 200 mg PO TID [facility] Last Admin: 10/13/16 20:04 Dose: 200 mg Guaifenesin/Dextromethorphan (Robitussin Dm*) 10 ml PO Q4H PRN PRN Reason: COUGH Last Admin: 10/14/16 02:42 Dose: 10 ml Ceftriaxone Sodium 1,000 mg/ (Sodium Chloride) 50 mls @ 200 mls/hr IVPB Q24H [facility] Last Admin: 10/13/16 16:13 Dose: 200 mls/hr Azithromycin 500 mg/ Sodium (Chloride) 250 mls @ 250 mls/hr IVPB Q24H [facility] Last Admin: 10/13/16 17:13 Dose: 250 mls/hr Sodium Chloride (Ns 0.9% 1000 Ml*) 1,000 mls @ 100 mls/hr IV PER RATE [facility] Last Admin: 10/14/16 00:47 Dose: 100 mls/hr Calcium Gluconate 2 gm/ Sodium (Chloride) 120 mls @ 120 mls/hr IV ONCE ONE Stop: 10/14/16 08:29 Methylprednisolone Sodium Succinate (Solu-Medrol*) 40 mg IV Q12H [facility] Morphine Sulfate (Morphine Inj (Syringe)*) 2 mg IV Q2H PRN PRN Reason: air hunger Last Admin: 10/14/16 04:13 Dose: 2 mg Omeprazole (Prilosec Cap*) 20 mg PO DAILY@0600 [facility] Last Admin: 10/14/16 05:50 Dose: 20 mg Oxycodone HCl (Roxycodone Tab*) 5 mg PO Q6H PRN PRN Reason: Severe cough/Severe pain Last Admin: 10/13/16 23:02 Dose: 5 mg Rivaroxaban (Xarelto (*)) 20 mg PO DAILY@1700 [facility] Last Admin: 10/13/16 17:13 Dose: 20 mg Throat Lozenges (Chloraseptic Kaykay*) 1 kaykay MT Q4H PRN PRN Reason: COUGH Last Admin: 10/14/16 02:42 Dose: 1 kaykay Vital Signs 10/14/16 10/14/16 10/14/16 05:00 06:00 06:04 Temperature 96.6 F 96.9 F 96.9 F Pulse Rate 72 77 73 Respiratory 21 22 19 Rate Blood Pressure 137/62 142/61 (mmHg) O2 Sat by Pulse 92 95 94 Oximetry Oxygen Devices in Use Now: High Flow Nasal Cannula - Vapotherm 40 liters FiO2 90 % Appearance: Pleasant elderly lady sitting up in bed in NAD. Eyes: No Scleral Icterus Ears/Nose/Mouth/Throat: Mucous Membranes Moist Neck: Trachea Midline Respiratory: Symmetrical Chest Expansion and Respiratory Effort, - - BS+ bilaterally with scattered bilateral rhonchi, decreased in right base Cardiovascular: RRR - Normal S1 and S2 Abdominal: NL Sounds; No Tenderness; No Distention Extremities: No Edema Neurological: Alert and Oriented x 3, NL Muscle Strength and Tone Lines/Tubes/Other Access: Clean, Dry and Intact Peripheral IV Nutrition: Taking PO's Result Diagrams: 10/14/16 04:34 10/14/16 04:34 Assess/Plan/Problems-Billing Assessment: Mrs. 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 - Patient Problems (1) Acute hypoxemic respiratory failure Comment: - Secondary to pneumonia. - Continue supplemental O2 - will try to titrate Vapotherm down. (2) Severe sepsis Comment: - Met sepsis criteria on admission with leukocytosis (with bandemia), tachypnea, fever, and tachycardia. - qSOFA was 1 (tachypnea). - Source is pneumonia. (3) Pneumonia Comment: - CTA chest was negative for PE. It showed bibasilar infiltrates suggestive of pneumonia. - Influenza is negative. - Blood cultures show no growth so far, Legionella and pneumococcal Ag are negative. - Continue IVF, Ceftriaxone, Zithromax, and steroids. - Leukocytosis is fluctuating up and down, likely secondary to steroids, but bandemia is resolved. - Remains afebrile. - Will repeat CxR in AM and request Pulmonology evaluation. - Incentive spirometry. (4) SWAPNIL (acute kidney injury) Comment: - Likely pre-renal. - Urine output is improving and her fluid balance was positive almost 4 liters over the past 24h. - Decrease IVF. (5) Hematuria Comment: - Secondary to Santana catheter in the setting of Xarelto use. - Will continue to monitor UO today, but will likely d/c Santana tomorrow. (6) DVT (deep venous thrombosis) Comment: - Xarelto. (7) Hypocalcemia Comment: - Check albumin and ionized calcium. - Replete. (8) DVT prophylaxis Comment: - Xarelto. (9) DNR (do not resuscitate) Comment: - But agreeable with trial of intubation. Status and Disposition: Inpatient. Continue management in ICU.
[2016-10-14] MEDS: Benzonatate CAP* 100 MG PO SCH ×3 (10:01→20:02)
[2016-10-14] MEDS: methylPREDNISolone SOD SUCC* 40 MG/ML VIAL IV SCH ×2 (10:02→20:02)
[2016-10-14] MEDS: cefTRIAXone VIAL(*) 1,000 MG in NS 0.9% 50 ML* 50 ML IVPB SCH (16:23)
[2016-10-14] MEDS: Azithromycin IV(*) 500 MG in NS 0.9% 250 ML* 250 ML IVPB SCH (17:15)
[2016-10-14] MEDS: Rivaroxaban TAB(*) 20 MG TAB PO SCH (18:19)
[2016-10-14] MEDS: Calcium Carbonate CHEW TAB* 500 MG (TUMS) PO PRN (18:40)
[2016-10-15] MEDS: GuaiFENesin DM* 5 ML UDC PO PRN ×3 (00:34→13:10)
[2016-10-15] MEDS: oxyCODONE TAB* 5 MG TAB PO PRN ×3 (02:23→13:11)
[2016-10-15] MEDS: Morphine INJ* 2 MG/ML 1 ML SYRINGE IV PRN ×2 (02:23→14:19)
[2016-10-15 04:44] LABS: Hematocrit 39 % (35-47); Hemoglobin 12.8 g/dl (12.0-16.0); Mean Corpuscular HGB Conc 33 g/dl (31-36); Mean Corpuscular Hemoglobin 30 pg (27-31); Mean Corpuscular Volume 91 fL (80-97); Mean Platelet Volume 8 um3 (7.4-10.4); Red Blood Count 4.24 10^6/ul (4.0-5.4); Red Cell Distribution Width 15 % (10.5-15); White Blood Count 16.7 10^3/ul (3.5-10.8)
[2016-10-15 04:48] LABS: Comments Flag Yes
[2016-10-15 04:49] LABS: Add Diff/Slide Review? Slide Review Added
[2016-10-15 04:52] LABS: BUN/Creatinine Ratio 35.3 (8-20); C Reactive Protein 93.91 mg/L (< 5.00); Calcium 6.8 mg/dL (8.6-10.3); EGFR Non-African American 114.3 (>60); Potassium 4.1 mmol/L (3.5-5.0)
[2016-10-15] MEDS: Omeprazole CAP* 20 MG PO SCH (06:27)
--- NOTE | 2016-10-15 07:51 | RAD ---
INDICATION: Pneumonia. COMPARISON: Comparison is made with a prior chest x-ray study from October 11, 2016. TECHNIQUE: A portable view of the chest was obtained. FINDINGS: There is a dual-chamber transvenous pacemaker present. The heart appears mildly prominent and unchanged. There are infiltrates scattered within both lungs which have progressed from the prior study. No pleural effusion is seen. IMPRESSION: BILATERAL INFILTRATES DEMONSTRATING INTERVAL PROGRESSION.
[2016-10-15] MEDS: NS 0.9% 1000 ML* 1,000 ML IV SCH (08:06)
[2016-10-15] MEDS: methylPREDNISolone SOD SUCC* 40 MG/ML VIAL IV SCH ×2 (08:09→20:10)
[2016-10-15] MEDS: Benzonatate CAP* 100 MG PO SCH ×3 (08:09→20:09)
[2016-10-15 09:35] LABS: Albumin 2.5 g/dL (3.2-5.2); Magnesium 1.7 mg/dL (1.9-2.7)
[2016-10-15] MEDS ORDERED: Magnesium Sulfate 2 GM IV* 2 GM/50 ML BAG IVPB ONE (10:02)
--- NOTE | 2016-10-15 10:08 | PN ---
Subjective Date of Service: 10/15/16 Interval History: HOSPITALIST PROGRESS NOTE Patient seen and examined at bedside. She feels well this AM, in good spirits. Was able to sleep last night, coughing fits are less frequent. Family History: Unchanged from Admission Social History: Unchanged from Admission Past Medical History: Unchanged from Admission Objective Active Medications: Acetaminophen (Tylenol Tab*) 650 mg PO Q6H PRN PRN Reason: pain/fever Last Admin: 10/11/16 20:23 Dose: 650 mg Benzonatate (Tessalon Cap*) 200 mg PO TID [facility] Last Admin: 10/15/16 08:09 Dose: 200 mg Calcium Carbonate (Tums*) 500 mg PO TID PRN PRN Reason: HEARTBURN Last Admin: 10/14/16 18:40 Dose: 500 mg Guaifenesin/Dextromethorphan (Robitussin Dm*) 10 ml PO Q4H PRN PRN Reason: COUGH Last Admin: 10/15/16 08:23 Dose: 10 ml Ceftriaxone Sodium 1,000 mg/ (Sodium Chloride) 50 mls @ 200 mls/hr IVPB Q24H [facility] Last Admin: 10/14/16 16:23 Dose: 200 mls/hr Azithromycin 500 mg/ Sodium (Chloride) 250 mls @ 250 mls/hr IVPB Q24H [facility] Last Admin: 10/14/16 17:15 Dose: 250 mls/hr Sodium Chloride (Ns 0.9% 1000 Ml*) 1,000 mls @ 50 mls/hr IV PER RATE [facility] Last Admin: 10/15/16 08:06 Dose: 50 mls/hr Methylprednisolone Sodium Succinate (Solu-Medrol*) 40 mg IV Q12H [facility] Last Admin: 10/15/16 08:09 Dose: 40 mg Morphine Sulfate (Morphine Inj (Syringe)*) 2 mg IV Q2H PRN PRN Reason: air hunger Last Admin: 10/15/16 02:23 Dose: 2 mg Omeprazole (Prilosec Cap*) 20 mg PO DAILY@0600 [facility] Last Admin: 10/15/16 06:27 Dose: 20 mg Oxycodone HCl (Roxycodone Tab*) 5 mg PO Q6H PRN PRN Reason: Severe cough/Severe pain Last Admin: 10/15/16 02:23 Dose: 5 mg Rivaroxaban (Xarelto (*)) 20 mg PO DAILY@1700 [facility] Last Admin: 10/14/16 18:19 Dose: 20 mg Throat Lozenges (Chloraseptic Kaykay*) 1 kaykay MT Q4H PRN PRN Reason: COUGH Last Admin: 10/14/16 14:23 Dose: 1 kaykay Vital Signs 10/15/16 10/15/16 10/15/16 06:03 07:00 08:00 Temperature 97.9 F 98.3 F 98.5 F Pulse Rate 86 69 98 Respiratory 22 22 23 Rate Blood Pressure 148/74 141/88 140/109 (mmHg) O2 Sat by Pulse 95 94 89 Oximetry 10/15/16 10/15/16 08:42 09:00 Temperature 98.6 F Pulse Rate 86 Respiratory 18 Rate Blood Pressure (mmHg) O2 Sat by Pulse 90 92 Oximetry Oxygen Devices in Use Now: High Flow Nasal Cannula - Vapotherm 40 liters FiO2 100% Appearance: Pleasant elderly lady sitting up in bed in NAD. Eyes: No Scleral Icterus Ears/Nose/Mouth/Throat: Mucous Membranes Moist Neck: Trachea Midline Respiratory: Symmetrical Chest Expansion and Respiratory Effort, - - BS+ bilaterally with scattered rhonchi, decreased in right base Cardiovascular: RRR - Normal S1 and S2 Abdominal: NL Sounds; No Tenderness; No Distention Extremities: No Edema Neurological: Alert and Oriented x 3, NL Muscle Strength and Tone Lines/Tubes/Other Access: Clean, Dry and Intact Peripheral IV Nutrition: Taking PO's Result Diagrams: 10/15/16 04:28 10/15/16 04:28 Assess/Plan/Problems-Billing Assessment: Mrs. 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 - Patient Problems (1) Acute hypoxemic respiratory failure Comment: - Secondary to pneumonia. - Continue supplemental O2 - continue to try to titrate Vapotherm down. (2) Severe sepsis Comment: - Met sepsis criteria on admission with leukocytosis (with bandemia), tachypnea, fever, and tachycardia. - qSOFA was 1 (tachypnea). - Source is pneumonia. (3) Pneumonia Comment: - CTA chest was negative for PE. It showed bibasilar infiltrates suggestive of pneumonia. - Influenza is negative. - Blood cultures show no growth so far, Legionella and pneumococcal Ag are negative. - Continue IVF, Ceftriaxone, Zithromax, and steroids. - Leukocytosis is fluctuating up and down, likely secondary to steroids, but bandemia is resolved. - Remains afebrile. - CxR shows some progression of infiltrates. - Pulmonology and ID evaluation requested. - Incentive spirometry. (4) SWAPNIL (acute kidney injury) Comment: - Likely pre-renal. - Urine output is improving. - D/c IVF. (5) Hematuria Comment: - Secondary to Santana catheter in the setting of Xarelto use. (6) DVT (deep venous thrombosis) Comment: - Xarelto. (7) Hypocalcemia Comment: - Check albumin and ionized calcium. - Replete. - If still low by tomorrow, will check PTH. (8) Hypomagnesemia Comment: - Replete. (9) DVT prophylaxis Comment: - Xarelto. (10) DNR (do not resuscitate) Comment: - But agreeable with trial of intubation. Status and Disposition: Inpatient. Continue management in ICU. Son updated at bedside.
[2016-10-15] MEDS: Calcium Carbonate CHEW TAB* 500 MG (TUMS) PO PRN (13:11)
[2016-10-15] MEDS ORDERED: Codeine TAB* 15 MG PO ONE (14:26)
[2016-10-15] MEDS ORDERED: methylPREDNISolone SOD SUCC* 125 MG 2 ML VIAL IV ONE (14:28)
[2016-10-15] MEDS: cefTRIAXone VIAL(*) 1,000 MG in NS 0.9% 50 ML* 50 ML IVPB SCH (16:22)
[2016-10-15] MEDS: Azithromycin IV(*) 500 MG in NS 0.9% 250 ML* 250 ML IVPB SCH (16:53)
[2016-10-15] MEDS: Rivaroxaban TAB(*) 20 MG TAB PO SCH (18:04)
--- NOTE | 2016-10-15 20:07 | CONS ---
CONSULTATION REPORT: DATE OF CONSULT: 10/15/16 REQUESTING PHYSICIAN: Dr. Urena. CONSULTING SERVICE: Infectious Disease. REASON FOR CONSULT: Hypoxemia, pneumonia. IMPRESSION: 1. Acute hypoxemic respiratory failure, present on admission. 2. Multifocal pneumonia, also impressive right lower lobe infiltrate on the CT scan with ongoing hypoxia. She did have resolution of her fever and significant improvement in C-reactive protein even before her steroids were started on the . I think she is on appropriate antibiotics for this community-acquired pneumonia and that her persistent hypoxemia is related to the degree of pulmonary involvement and a density of infiltrates particularly on the right side. 3. DVT, on Xarelto with no pulmonary embolism on her CT scan. 4. Status post pacemaker for complete heart block. 5. Aortic stenosis. RECOMMENDATION: Agree with ceftriaxone 1 g daily and azithromycin 500 mg daily as well as empiric steroid coverage. We will follow her oxygen saturation and C - reactive protein, also include a procalcitonin. HISTORY OF PRESENT ILLNESS: This is an 86-year-old woman admitted with cough and dyspnea. She had been well until about a week before admission, she developed malaise, decreased appetite, and then a sudden onset of severe cough, which is nonproductive as well as headache and shortness of breath. She was seen by Dr. Isaac on the , who found her to have oxygen saturation at 80s and fever of 103 degrees, sent her to the ER. She was started on antibiotics as above. At that time, she had bandemia, CRP of 340, influenza PCR was negative. Chest x-ray showed bilateral infiltrates. Her saturation was still in the low 80s on room air. She has been on antibiotics now. Her bandemia has resolved. Her CRP has decreased from 380 to 220 on the , down to 120, later on the steroids were started and then today her CRP is 93. She has had no fevers since . She is on high-flow oxygen at 40 L per minute. Her saturation is 92%. She is not dyspneic at rest and her cough is nearly resolved. She has not had pneumonia requiring hospitalization in the past. PAST MEDICAL HISTORY: 1. History of DVT, on Xarelto. 2. Status post pacemaker for complete heart block. 3. Hypertension. 4. Asthma. 5. Status post cholecystectomy. 6. Status post subtotal parathyroidectomy. 7. Aortic valve stenosis. 8. History of stroke. 9. History of shingles. 10. Schatzki's ring. 11. Gastroesophageal reflux disease. 12. Hiatal hernia. MEDICATIONS: 1. Tylenol. 2. Benzocaine. 3. Benzonatate. 4. Calcium carbonate. 5. Guaifenesin p.r.n. 6. Omeprazole. 7. Ceftriaxone 1 g a day. 8. Azithro 500 mg daily. 9. Methylprednisolone 4 mg every 12 hours. ALLERGIES: To CODEINE. FAMILY HISTORY: No recurrent infections. SOCIAL HISTORY: Lives in [place], she is from [place] originally. No history of TB personally or in her family. REVIEW OF SYSTEMS: All negative except as noted above. PHYSICAL EXAM: Vital Signs: Temperature is 37.2, heart rate 70, respiratory rate 19, blood pressure 140/75, and O2 sat 92%. General: She is not in distress, she is not diaphoretic. HEENT: There is no conjunctival hemorrhage. Oropharynx without lesions. Neurologically, she is awake and oriented x3, follows all commands, and moves all extremities. Neck is supple without nuchal rigidity. Lymph Nodes: There is no cervical, supraclavicular, inguinal, axillary, or epitrochlear lymphadenopathy. Heart: Regular rate and rhythm without murmurs, rubs, or gallops. Lungs: She coughs with a deep breath. There is some expiratory rhonchi bilaterally, which eventually clear. There is no egophony, there are decreased breath sounds at the right greater than left base. There is no wheeze or rale. Abdomen: Soft, nontender, and nondistended without hepatosplenomegaly. Skin: There is no rash or splinter hemorrhages. Musculoskeletal: There is no spine tenderness to palpation or joint synovitis. LABORATORY DATA: Creatinine 0.5. CRP 90. White blood cell count 16, hemoglobin 12, platelets 336. Influenza PCR negative. Blood cultures are negative. Legionella and pneumococcal antigens of the urine are negative. Please see impressions and recommendations as outlined above, which I have discussed with Dr. Urena. Thanks for asking me to see Ms. Tello in consultation. [id number]/[facility] #: [id number] [facility]
[2016-10-15] MEDS: Benzocaine/Menthol LOZ* 1 LOZENGE MT PRN ×2 (21:30→23:52)
--- NOTE | 2016-10-15 21:48 | CONS ---
PULMONARY CONSULTATION REPORT: DATE OF CONSULT: 10/15/16 REASON FOR CONSULT: Evaluation of shortness of breath, hypoxemia. CONSULTATION REQUESTED BY: Dr. Urena. HISTORY OF PRESENT ILLNESS: The patient is an 86-year-old female with history of DVT on Xarelto, status post pacemaker placement for complete heart block, history of CVA, aortic stenosis, who was sent from primary care physician's office for evaluation of cough, headache, and shortness of breath. The patient lives alone and has been having the symptoms a week prior to the presentation. The patient was also noted to be febrile with temperature of 102.7 with O2 sats in low 80s on room air. The patient had a chest x-ray in the office, which showed airspace opacity on the right side. The patient was transported for further evaluation. The patient was noted to have leukocytosis on evaluation in the emergency room with elevated white count of 13. The patient also had elevated CRP. Chest x-ray performed in the ED was personally reviewed by me - evidence of bibasilar airspace opacity was noted. The patient subsequently had CT scan of the chest. I have personally reviewed CT scan of the chest - the patient noted to have bibasilar airspace opacities consistent with pneumonia. The patient was also noted to have basilar atelectasis. The patient with slightly enlarged subcarinal lymph node measuring 12 mm. The patient also had enlarged right hilar lymph node measuring at 13 mm. The patient also noted to have hiatal hernia. The patient was seen and examined by me at bedside. The patient continues to have significant cough. She is on 60 mg of prednisone currently. The patient is also on broad spectrum antibiotics. Leukocytosis and CRP has been improving. The patient has been requiring 100% FiO2 currently. PAST MEDICAL HISTORY: 1. DVT in 2017, on Xarelto. 2. Pacemaker for complete heart block. 3. Hypertension. 4. Asthma. 5. Cholecystectomy. 6. Subtotal parathyroidectomy. 7. Aortic wall stenosis. 8. History of CVA. 9. History of shingles. 10. History of Schatzki's ring. 11. GERD. 12. Hiatal hernia. MEDICATIONS: 1. Tylenol. 2. Citracal. 3. Esomeprazole. 4. Oxybutynin. 5. Multivitamin. 6. Sucralfate. 7. Valsartan and hydrochlorothiazide. 8. Guaifenesin. 9. Rivaroxaban. ALLERGIES: CODEINE. FAMILY HISTORY: Mother at 96 from heart attack. Father in 30s in car accident. SOCIAL HISTORY: No history of alcohol, tobacco, or drug abuse. REVIEW OF SYSTEMS: All 14 systems are reviewed and as per HPI. PHYSICAL EXAM: The patient in bed, in no apparent distress, continuously coughing throughout the investigation. Vital Signs: Temperature 98.7, heart rate 84 beats per minute, respiratory rate 20 per minute, O2 sat 93% on 100% FiO2, blood pressure 151/85. HEENT: Pupils equal, reactive to light, mucous membranes moist. Lungs: Diminished air entry bilaterally, scattered rhonchi present. Cardiovascular: S1, S2 present. Regular. No murmurs. Abdomen: Soft, non-tender, nondistended. Bowel sounds present. Extremities: No cyanosis or edema. Neurological: Alert, awake, oriented x3. No focal deficits. Skin: Intact. No bruises. No rash. Musculoskeletal: Normal range of motion. DIAGNOSTIC STUDIES/LAB DATA: WBC count from today's labs is 16.7, hemoglobin 12.8, hematocrit 39, platelet count 336 with left shift. INR 2.41. Sodium 138, potassium 4.1, chloride 107, bicarb 26, BUN 18, creatinine 0.51, glucose 154, lactic acid within normal limits, calcium is low at 6.8 with ionized calcium at 3.63, magnesium 1.7, CRP 93.91, albumin 2.5, procalcitonin slightly elevated at 1.6. Chest x-ray and CT scan of the chest as described above in HPI. Influenza A and B negative. IMPRESSION AND RECOMMENDATIONS: 86-year-old female with history of deep venous thrombosis on Xarelto, history of breast cancer with hypoxemic respiratory failure secondary to pneumonia. The patient improving slowly; however, still needing high FiO2 requirements. The patient with pacemaker placement secondary to heart block with possible reactive airway disease. 1. Acute hypoxemic respiratory failure secondary to pneumonia. 2. Reactive airway disease. 3. Cough secondary to reactive airway disease. The patient is on broad spectrum antibiotics at this time with improvement in CRP, procalcitonin is only slightly increased. White count is still high, probably could be secondary to steroids she is receiving. Will give stat dose of Solu-Medrol given significant cough. Continue to titrate FiO2 as tolerated. Supportive care. She might benefit from nebulized saline. Thank you for allowing me to participate in the care of your patient. Will follow up with you. [id number]/MELLY #: [id number] JAIRO
[2016-10-16] MEDS: GuaiFENesin DM* 5 ML UDC PO PRN
[2016-10-16] MEDS: guaiFENesin ER TAB 600 MG PO SCH ×3 (01:55→19:56)
[2016-10-16] MEDS ORDERED: Furosemide IV* 10 MG/ML 10 ML VIAL (100 MG) IV ONE (03:07)
[2016-10-16] MEDS: Omeprazole CAP* 20 MG PO SCH (05:55)
[2016-10-16] MEDS ORDERED: Magnesium Sulfate 2 GM IV IVPB ONE (06:00)
[2016-10-16 06:10] LABS: Hematocrit 42 % (35-47); Hemoglobin 13.8 g/dl (12.0-16.0); Mean Corpuscular HGB Conc 33 g/dl (31-36); Mean Corpuscular Hemoglobin 30 pg (27-31); Mean Corpuscular Volume 91 fL (80-97); Mean Platelet Volume 8 um3 (7.4-10.4); Red Blood Count 4.66 10^6/ul (4.0-5.4); Red Cell Distribution Width 15 % (10.5-15)
[2016-10-16 06:20] LABS: BUN/Creatinine Ratio 29.2 (8-20); C Reactive Protein 112.47 mg/L (< 5.00); Calcium 7.5 mg/dL (8.6-10.3); EGFR African American 157.7 (>60); EGFR Non-African American 122.6 (>60); Potassium 3.5 mmol/L (3.5-5.0)
[2016-10-16 06:50] LABS: Magnesium 1.7 mg/dL (1.9-2.7)
[2016-10-16] MEDS ORDERED: KCL 20 MEQ/100 ML IVPREMIX* 20 MEQ/100 ML BAG IV SCH (07:00)
[2016-10-16 07:13] LABS: Calcium (PTH Intact) 7.3 mg/dL (8.6-10.3)
[2016-10-16] MEDS ORDERED: Potassium Chloride LIQUID* 20 MEQ PACKET PO ONE (07:30)
[2016-10-16] MEDS: methylPREDNISolone SOD SUCC* 40 MG/ML VIAL IV SCH ×2 (08:15→19:56)
[2016-10-16] MEDS: Benzonatate CAP* 100 MG PO SCH ×3 (08:15→19:55)
--- NOTE | 2016-10-16 15:04 | PN ---
Progress Note - Progress Note SOAP: Subjective: DOS: 10/16/16 CC: hypoxia HPI: 86 year old woman with multifocal pneumonia, occasional cough. Not dyspneic ar rest. Tolerating high flow O2 well. Objective: [] Vital Signs Temp 37.3 C 10/16/16 14:00 Pulse 73 10/16/16 14:00 Resp 20 10/16/16 14:00 BP 115/55 10/16/16 14:00 Pulse Ox 94 10/16/16 14:00 Intake & Output 10/15/16 10/16/16 10/16/16 18:59 06:59 18:59 Intake Total 1110 680 810 Output Total 2675 5400 325 Balance -2607 -8586 485 Weight 179 lb 14.355 oz Intake: IV Fluids 390 100 NS 40 abx 350 mg 100 Oral 720 680 710 Output: Santana 2675 5400 325 Gen:awake, not in distress Neuro:Ox3, answers all questions Neck:supple Heart: RRR no murmur Lungs: decreased BS at bases, no wheeze or rales Abd:+BS NTND soft Skin: no rash MSK: no spine tenderness Laboratory Results - last 24 hr 10/16/16 10/16/16 10/16/16 02:00 05:45 05:45 WBC 16.0 H RBC 4.66 Hgb 13.8 Hct 42 MCV 91 MCH 30 MCHC 33 RDW 15 Plt Count 384 MPV 8 Neut % (Auto) 88.9 H Lymph % (Auto) 5.6 L [place] % (Auto) 5.4 Eos % (Auto) 0 Baso % (Auto) 0.1 Absolute Neuts (auto) 14.2 H Absolute Lymphs (auto) 0.9 L Absolute Monos (auto) 0.9 H Absolute Eos (auto) 0 Absolute Basos (auto) 0 Absolute Nucleated RBC 0.01 Nucleated RBC % 0.1 Sodium 136 Potassium 3.5 Chloride 97 L Carbon Dioxide 33 H Anion Gap 6 BUN 14 Creatinine 0.48 L Est GFR ( Amer) 157.7 Est GFR (Non-Af Amer) 122.6 BUN/Creatinine Ratio 29.2 H Glucose 168 H Calcium 7.5 L Magnesium 1.7 L C-Reactive Protein 112.47 H B-Natriuretic Peptide 1639 H Procalcitonin PTH Intact Calcium (PTH Intact) 10/16/16 10/16/16 05:45 05:45 WBC RBC Hgb Hct MCV MCH MCHC RDW Plt Count MPV Neut % (Auto) Lymph % (Auto) [place] % (Auto) Eos % (Auto) Baso % (Auto) Absolute Neuts (auto) Absolute Lymphs (auto) Absolute Monos (auto) Absolute Eos (auto) Absolute Basos (auto) Absolute Nucleated RBC Nucleated RBC % Sodium Potassium Chloride Carbon Dioxide Anion Gap BUN Creatinine Est GFR ( Amer) Est GFR (Non-Af Amer) BUN/Creatinine Ratio Glucose Calcium Magnesium C-Reactive Protein B-Natriuretic Peptide Procalcitonin 0.2 PTH Intact 5.1 Calcium (PTH Intact) 7.3 L Assessment: 1. acute hypoxemic respiratory failure, present on admission 2. multifocal pneumonia, community acquired 3. elevated CRP, has leveled off 4. hx DVT on anticoagulation 5. gross hematuria Plan: 1. continue cefrtiaxone and azithromycin, recheck CRP 10/17. Oxygen and steroids per hospitalist and pulmonology.
[2016-10-16] MEDS: Azithromycin IV(*) 500 MG in NS 0.9% 250 ML* 250 ML IVPB SCH (16:40)
[2016-10-16] MEDS: Rivaroxaban TAB(*) 20 MG TAB PO SCH (16:40)
[2016-10-16] MEDS: cefTRIAXone VIAL(*) 1,000 MG in NS 0.9% 50 ML* 50 ML IVPB SCH (16:40)
--- NOTE | 2016-10-16 17:03 | PN ---
Progress Note - Progress Note Note: Pulm consult f/u note 10/16/16. Pt seen and examined at bedside. Pt reproted improvement in cough and breathing. Active Medications Generic Name Dose Route Start Last Admin Trade Name Freq PRN Reason Stop Dose Admin Acetaminophen 650 mg 10/11/16 19:00 10/11/16 20:23 Tylenol Tab* PO 650 mg Q6H PRN Administration pain/fever Benzonatate 200 mg 10/12/16 14:00 10/16/16 14:03 Tessalon Cap* PO 200 mg TID TEMITOPE Administration Calcium Carbonate 500 mg 10/14/16 18:23 10/15/16 13:11 Tums* PO 500 mg TID PRN Administration HEARTBURN Guaifenesin 1,200 mg 10/16/16 02:00 10/16/16 08:15 Mucinex* PO 1,200 mg BID TEMITOPE Administration Ceftriaxone Sodium 1,000 mg/ 50 mls @ 200 mls/hr 10/12/16 16:00 10/16/16 16: 40 Sodium Chloride IVPB 200 mls/hr Q24H TEMITOPE Administration Azithromycin 500 mg/ Sodium 250 mls @ 250 mls/hr 10/12/16 17:00 10/16/16 16: 40 Chloride IVPB 250 mls/hr Q24H TEMITOPE Administration Methylprednisolone Sodium Succinate 40 mg 10/14/16 09:00 10/16/16 08:15 Solu-Medrol* IV 40 mg Q12H TEMITOPE Administration Morphine Sulfate 2 mg 10/12/16 02:28 10/15/16 14:19 Morphine Inj (Syringe)* IV 2 mg Q2H PRN Administration air hunger Omeprazole 20 mg 10/12/16 06:00 10/16/16 05:55 Prilosec Cap* PO 20 mg DAILY@0600 TEMITOPE Administration Oxycodone HCl 5 mg 10/12/16 12:11 10/15/16 13:11 Roxycodone Tab* PO 5 mg Q6H PRN Administration Severe cough/Severe pain Rivaroxaban 20 mg 10/12/16 17:00 10/16/16 16:40 Xarelto (*) PO 20 mg DAILY@1700 TEMITOPE Administration Throat Lozenges 1 kaykay 10/15/16 23:52 10/15/16 23:52 Chloraseptic Kaykay* MT 1 kaykay Q2H PRN Administration COUGH Vital Signs Temp Pulse Resp BP Pulse Ox 98.7 F 80 23 139/45 92 10/16/16 16:00 10/16/16 16:00 10/16/16 16:56 10/16/16 16:00 10/16/16 16:00 Gen:awake, not in distress HEENT: PERRLA, NO JVD Neuro:Ox3, answers all questions Neck:supple Heart: RRR no murmur Lungs: decreased BS at bases, no wheeze or rales Abd:+BS NTND soft Skin: no rash MSK: no spine tenderness Laboratory Results - last 24 hr 10/16/16 10/16/16 10/16/16 02:00 05:45 05:45 WBC 16.0 H RBC 4.66 Hgb 13.8 Hct 42 MCV 91 MCH 30 MCHC 33 RDW 15 Plt Count 384 MPV 8 Neut % (Auto) 88.9 H Lymph % (Auto) 5.6 L [place] % (Auto) 5.4 Eos % (Auto) 0 Baso % (Auto) 0.1 Absolute Neuts (auto) 14.2 H Absolute Lymphs (auto) 0.9 L Absolute Monos (auto) 0.9 H Absolute Eos (auto) 0 Absolute Basos (auto) 0 Absolute Nucleated RBC 0.01 Nucleated RBC % 0.1 Sodium 136 Potassium 3.5 Chloride 97 L Carbon Dioxide 33 H Anion Gap 6 BUN 14 Creatinine 0.48 L Est GFR ( Amer) 157.7 Est GFR (Non-Af Amer) 122.6 BUN/Creatinine Ratio 29.2 H Glucose 168 H Calcium 7.5 L Magnesium 1.7 L C-Reactive Protein 112.47 H B-Natriuretic Peptide 1639 H Procalcitonin PTH Intact Calcium (PTH Intact) 10/16/16 10/16/16 05:45 05:45 WBC RBC Hgb Hct MCV MCH MCHC RDW Plt Count MPV Neut % (Auto) Lymph % (Auto) [place] % (Auto) Eos % (Auto) Baso % (Auto) Absolute Neuts (auto) Absolute Lymphs (auto) Absolute Monos (auto) Absolute Eos (auto) Absolute Basos (auto) Absolute Nucleated RBC Nucleated RBC % Sodium Potassium Chloride Carbon Dioxide Anion Gap BUN Creatinine Est GFR ( Amer) Est GFR (Non-Af Amer) BUN/Creatinine Ratio Glucose Calcium Magnesium C-Reactive Protein B-Natriuretic Peptide Procalcitonin 0.2 PTH Intact 5.1 Calcium (PTH Intact) 7.3 L Impression/Recommendations: 1. Acute hypoxemic respiratory failure, present on admission 2. Multifocal pneumonia, community acquired Continue cefrtiaxone and azithromycin, c/w O2, steroids Titrate FiO2 as tolerated Cough is improved
--- NOTE | 2016-10-16 17:04 | PN ---
Subjective Date of Service: 10/16/16 Interval History: Pt is feeling ok. She has been coughing and bringing up blood tinged sputum recently. No significant SOB at rest. She had a BM earlier today. Objective Active Medications: Acetaminophen (Tylenol Tab*) 650 mg PO Q6H PRN PRN Reason: pain/fever Last Admin: 10/11/16 20:23 Dose: 650 mg Benzonatate (Tessalon Cap*) 200 mg PO TID [facility] Last Admin: 10/16/16 14:03 Dose: 200 mg Calcium Carbonate (Tums*) 500 mg PO TID PRN PRN Reason: HEARTBURN Last Admin: 10/15/16 13:11 Dose: 500 mg Guaifenesin (Mucinex*) 1,200 mg PO BID [facility] Last Admin: 10/16/16 08:15 Dose: 1,200 mg Ceftriaxone Sodium 1,000 mg/ (Sodium Chloride) 50 mls @ 200 mls/hr IVPB Q24H [facility] Last Admin: 10/16/16 16:40 Dose: 200 mls/hr Azithromycin 500 mg/ Sodium (Chloride) 250 mls @ 250 mls/hr IVPB Q24H [facility] Last Admin: 10/16/16 16:40 Dose: 250 mls/hr Methylprednisolone Sodium Succinate (Solu-Medrol*) 40 mg IV Q12H [facility] Last Admin: 10/16/16 08:15 Dose: 40 mg Morphine Sulfate (Morphine Inj (Syringe)*) 2 mg IV Q2H PRN PRN Reason: air hunger Last Admin: 10/15/16 14:19 Dose: 2 mg Omeprazole (Prilosec Cap*) 20 mg PO DAILY@0600 [facility] Last Admin: 10/16/16 05:55 Dose: 20 mg Oxycodone HCl (Roxycodone Tab*) 5 mg PO Q6H PRN PRN Reason: Severe cough/Severe pain Last Admin: 10/15/16 13:11 Dose: 5 mg Rivaroxaban (Xarelto (*)) 20 mg PO DAILY@1700 [facility] Last Admin: 10/16/16 16:40 Dose: 20 mg Throat Lozenges (Chloraseptic Kaykay*) 1 kaykay [place] Q2H PRN PRN Reason: COUGH Last Admin: 10/15/16 23:52 Dose: 1 kaykay Vital Signs 10/15/16 10/15/16 10/15/16 17:00 18:00 19:00 Temperature 98.9 F 98.8 F 98.3 F Pulse Rate 73 78 74 Respiratory 17 19 18 Rate Blood Pressure 156/61 118/70 (mmHg) O2 Sat by Pulse 92 92 92 Oximetry 10/15/16 10/15/16 10/15/16 20:00 20:12 20:41 Temperature 96.4 F 98.8 F 98.4 F Pulse Rate 70 71 72 Respiratory 17 18 18 Rate Blood Pressure 90/68 (mmHg) O2 Sat by Pulse 94 94 94 Oximetry 10/15/16 10/15/16 10/15/16 20:45 21:00 22:00 Temperature 97.9 F 98.6 F 98.5 F Pulse Rate 69 75 68 Respiratory 15 15 29 Rate Blood Pressure 156/67 154/100 157/72 (mmHg) O2 Sat by Pulse 93 94 92 Oximetry 10/15/16 10/15/16 10/15/16 23:00 23:05 23:26 Temperature 98.4 F 98.4 F 98.3 F Pulse Rate 78 65 66 Respiratory 15 26 24 Rate Blood Pressure 150/58 (mmHg) O2 Sat by Pulse 92 90 91 Oximetry 10/15/16 10/16/16 10/16/16 23:59 00:00 00:02 Temperature 98.4 F 98.4 F Pulse Rate 89 92 Respiratory 22 20 Rate Blood Pressure 164/73 (mmHg) O2 Sat by Pulse 93 88 87 Oximetry 10/16/16 10/16/16 10/16/16 00:04 01:00 01:09 Temperature 98.4 F 98.4 F Pulse Rate 73 71 Respiratory 24 26 18 Rate Blood Pressure 158/66 156/62 (mmHg) O2 Sat by Pulse 92 90 Oximetry 10/16/16 10/16/16 10/16/16 02:00 03:00 03:48 Temperature 98.4 F 98.3 F Pulse Rate 86 64 Respiratory 21 24 22 Rate Blood Pressure 130/99 142/54 (mmHg) O2 Sat by Pulse 91 90 Oximetry 10/16/16 10/16/16 10/16/16 04:00 05:00 06:00 Temperature 98.5 F 98.2 F 98.3 F Pulse Rate 67 67 68 Respiratory 23 23 20 Rate Blood Pressure 139/56 132/59 152/63 (mmHg) O2 Sat by Pulse 90 89 90 Oximetry 10/16/16 10/16/16 10/16/16 07:00 07:56 08:00 Temperature 98.3 F 98.2 F Pulse Rate 68 77 Respiratory 24 24 18 Rate Blood Pressure 150/57 148/61 (mmHg) O2 Sat by Pulse 91 91 Oximetry 10/16/16 10/16/16 10/16/16 09:00 09:02 09:07 Temperature Pulse Rate 76 82 84 Respiratory 20 20 14 Rate Blood Pressure 146/68 (mmHg) O2 Sat by Pulse 92 91 92 Oximetry 10/16/16 10/16/16 10/16/16 10:00 11:00 11:49 Temperature Pulse Rate 77 94 Respiratory 21 21 21 Rate Blood Pressure (mmHg) O2 Sat by Pulse 95 94 Oximetry 10/16/16 10/16/16 10/16/16 12:00 13:00 14:00 Temperature 98.8 F 99.1 F Pulse Rate 70 76 73 Respiratory 22 18 20 Rate Blood Pressure 130/57 123/71 115/55 (mmHg) O2 Sat by Pulse 95 94 94 Oximetry 10/16/16 10/16/16 15:00 16:00 Temperature 98.8 F 98.7 F Pulse Rate 77 80 Respiratory 23 23 Rate Blood Pressure 135/63 139/45 (mmHg) O2 Sat by Pulse 92 92 Oximetry Oxygen Devices in Use Now: High Flow Nasal Cannula - 40L 60% FiO2-92% Appearance: Elderly female sitting in a chair, NAD Eyes: No Scleral Icterus Ears/Nose/Mouth/Throat: Mucous Membranes Moist Respiratory: Symmetrical Chest Expansion and Respiratory Effort, - - + crackles B/L lower lobes Cardiovascular: NL Sounds; No Murmurs; No JVD, RRR, No Edema Abdominal: NL Sounds; No Tenderness; No Distention Extremities: No Clubbing, Cyanosis Skin: No Rash or Ulcers, No Nodules or Sclerosis Neurological: Alert and Oriented x 3 Result Diagrams: 10/16/16 05:45 10/16/16 05:45 Additional Lab and Data: Lab Results 10/11/16 10/11/16 10/11/16 Range/Units 17:11 17:11 17:11 WBC 13.1 H (3.5-10.8) 10^3/ul RBC 4.59 (4.0-5.4) 10^6/ul Hgb 13.7 (12.0-16.0) g/dl Hct 42 (35-47) % MCV 91 (80-97) fL MCH 30 (27-31) pg MCHC 33 (31-36) g/dl RDW 14 (10.5-15) % Plt Count 324 (150-450) 10^3/ul MPV 8 (7.4-10.4) um3 Immature Gran % (Auto) 13 H (0-9) % Neut % (Auto) 80.7 (38-83) % Lymph % (Auto) 5.4 L (25-47) % [place] % (Auto) 13.7 H (1-9) % Eos % (Auto) 0 (0-6) % Baso % (Auto) 0.2 (0-2) % Absolute Neuts (auto) 10.6 H (1.5-7.7) 10^3/ul Absolute Lymphs (auto) 0.7 L (1.0-4.8) 10^3/ul Absolute Monos (auto) 1.8 H (0-0.8) 10^3/ul Absolute Eos (auto) 0 (0-0.6) 10^3/ul Absolute Basos (auto) 0 (0-0.2) 10^3/ul Absolute Nucleated RBC 0 10^3/ul Neutrophils % 64 (38-83) % Band Neutrophils % 13 H (0-8) % Lymphocytes % 8 L (25-47) % Reactive Lymphs % 2 (0-6) % Monocytes % 13 (0-13) % Nucleated RBC % 0 Normal RBC Morphology Not Reportable Polychromasia 1+ Hypochromasia 1+ Macrocytosis 1+ INR (Anticoag Therapy) 2.94 H (0.89-1.11) APTT 38.7 H (26.0-36.3) seconds Sodium 134 (133-145) mmol/L Potassium 3.2 L (3.5-5.0) mmol/L Chloride 99 L (101-111) mmol/L Carbon Dioxide 21 L (22-32) mmol/L Anion Gap 14 H (2-11) mmol/L BUN 29 H (6-24) mg/dL Creatinine 0.96 H (0.51-0.95) mg/dL Est GFR ( Amer) 70.9 (>60) Est GFR (Non-Af Amer) 55.1 (>60) BUN/Creatinine Ratio 30.2 H (8-20) Glucose 121 H (70-100) mg/dL Lactic Acid (0.5-2.0) mmol/L Calcium 7.5 L (8.6-10.3) mg/dL Total Bilirubin 1.60 H (0.2-1.0) mg/dL AST 28 (13-39) U/L ALT 16 (7-52) U/L Alkaline Phosphatase 90 (34-104) U/L Troponin I 0.03 (<0.04) ng/mL C-Reactive Protein 340.21 H (< 5.00) mg/L Total Protein 6.9 (6.4-8.9) g/dL Albumin 3.2 (3.2-5.2) g/dL Globulin 3.7 (2-4) g/dL Albumin/Globulin Ratio 0.9 L (1-3) Influenza A (Rapid) (Negative) Influenza B (Rapid) (Negative) 10/11/16 10/11/16 Range/Units 17:11 18:14 WBC (3.5-10.8) 10^3/ul RBC (4.0-5.4) 10^6/ul Hgb (12.0-16.0) g/dl Hct (35-47) % MCV (80-97) fL MCH (27-31) pg MCHC (31-36) g/dl RDW (10.5-15) % Plt Count (150-450) 10^3/ul MPV (7.4-10.4) um3 Immature Gran % (Auto) (0-9) % Neut % (Auto) (38-83) % Lymph % (Auto) (25-47) % [place] % (Auto) (1-9) % Eos % (Auto) (0-6) % Baso % (Auto) (0-2) % Absolute Neuts (auto) (1.5-7.7) 10^3/ul Absolute Lymphs (auto) (1.0-4.8) 10^3/ul Absolute Monos (auto) (0-0.8) 10^3/ul Absolute Eos (auto) (0-0.6) 10^3/ul Absolute Basos (auto) (0-0.2) 10^3/ul Absolute Nucleated RBC 10^3/ul Neutrophils % (38-83) % Band Neutrophils % (0-8) % Lymphocytes % (25-47) % Reactive Lymphs % (0-6) % Monocytes % (0-13) % Nucleated RBC % Normal RBC Morphology Polychromasia Hypochromasia Macrocytosis INR (Anticoag Therapy) (0.89-1.11) APTT (26.0-36.3) seconds Sodium (133-145) mmol/L Potassium (3.5-5.0) mmol/L Chloride (101-111) mmol/L Carbon Dioxide (22-32) mmol/L Anion Gap (2-11) mmol/L BUN (6-24) mg/dL Creatinine (0.51-0.95) mg/dL Est GFR ( Amer) (>60) Est GFR (Non-Af Amer) (>60) BUN/Creatinine Ratio (8-20) Glucose (70-100) mg/dL Lactic Acid 1.4 (0.5-2.0) mmol/L Calcium (8.6-10.3) mg/dL Total Bilirubin (0.2-1.0) mg/dL AST (13-39) U/L ALT (7-52) U/L Alkaline Phosphatase (34-104) U/L Troponin I (<0.04) ng/mL C-Reactive Protein (< 5.00) mg/L Total Protein (6.4-8.9) g/dL Albumin (3.2-5.2) g/dL Globulin (2-4) g/dL Albumin/Globulin Ratio (1-3) Influenza A (Rapid) Negative (Negative) Influenza B (Rapid) Negative (Negative) Microbiology and Other Data: Microbiology 10/12/16 17:00 Legionella Urinary Antigen - Final Urine Negative Legionella Streptococcus pneumoniae Ag Screen - Final Negative S. pneumo Antigen 10/11/16 20:19 Aerobic Blood Culture - Preliminary Blood Venous No Growth Day 1 Anaerobic Blood Culture - Preliminary No Growth Day 1 Assess/Plan/Problems-Billing Ms. 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 - Patient Problems (1) Severe sepsis Current Visit: Yes Status: Acute Code(s): A41.9 - SEPSIS, UNSPECIFIED ORGANISM; R65.20 - SEVERE SEPSIS WITHOUT SEPTIC SHOCK SNOMED Code(s): 69554279 Comment: The patient was septic on admission and had a SOFA score of 2 on admission (1 pt for MAP<70 and 1pt for elevated bilirubin). Her sepsis is improving. (2) Acute hypoxemic respiratory failure Current Visit: Yes Status: Acute Code(s): J96.01 - ACUTE RESPIRATORY FAILURE WITH HYPOXIA SNOMED Code(s): 752468279 Comment: Secondary to bibasilar pneumonia. Continue vapotherm and try to wean down to NC by tomorrow. (3) Pneumonia Current Visit: Yes Status: Acute Code(s): J18.9 - PNEUMONIA, UNSPECIFIED ORGANISM SNOMED Code(s): 974209214 Comment: Pt is very slowly recovering from her community accquired pneumonia. Continue ceftriaxone and azithromycin. Continue vapotherm for acute hypoxic respiratory failure. Continue monitoring in the ICU. WBC count stable. Recheck CBC, CRP tomorrow. (4) SWAPNIL (acute kidney injury) Current Visit: Yes Status: Acute Code(s): N17.9 - ACUTE KIDNEY FAILURE, UNSPECIFIED SNOMED Code(s): 77953825 Comment: Resolved. (5) DVT (deep venous thrombosis) Current Visit: Yes Status: Acute Code(s): I82.409 - ACUTE EMBOLISM AND THOMBOS UNSP DEEP VN UNSP LOWER EXTREMITY SNOMED Code(s): 976421395 Comment: Continue xarelto- 1+ pitting edema L LE. (6) Hematuria Current Visit: Yes Status: Acute Code(s): R31.9 - HEMATURIA, UNSPECIFIED SNOMED Code(s): 54805773 Comment: Secondary to watters catheter in the setting of xarelto use. Remove watters tonight. (7) DVT prophylaxis Current Visit: Yes Status: Acute Code(s): FXZ4152 - SNOMED Code(s): 276045602 Comment: xarelto (8) DNR (do not resuscitate) Current Visit: Yes Status: Acute Comment: DNR with trial intubation if necessary. Status and Disposition: .
[2016-10-17] MEDS: Omeprazole CAP* 20 MG PO SCH (06:15)
[2016-10-17 07:06] LABS: Hematocrit 43 % (35-47); Hemoglobin 14.3 g/dl (12.0-16.0); Mean Corpuscular HGB Conc 33 g/dl (31-36); Mean Corpuscular Hemoglobin 30 pg (27-31); Mean Corpuscular Volume 91 fL (80-97); Mean Platelet Volume 8 um3 (7.4-10.4); Red Blood Count 4.76 10^6/ul (4.0-5.4); Red Cell Distribution Width 15 % (10.5-15); White Blood Count 14.5 10^3/ul (3.5-10.8)
[2016-10-17 07:19] LABS: BUN/Creatinine Ratio 34.7 (8-20); C Reactive Protein 73.41 mg/L (< 5.00); Calcium 7.8 mg/dL (8.6-10.3); EGFR Non-African American 119.7 (>60); Potassium 4.1 mmol/L (3.5-5.0)
[2016-10-17 07:23] LABS: Add Diff/Slide Review? Slide Review Added; Comments Flag Yes
--- NOTE | 2016-10-17 07:33 | PN ---
Subjective Date of Service: 10/17/16 Interval History: Pt is discouraged about needing extra help last night (2 person assist getting up instead of 1) and the fact she is not feeling much better. Her cough is better today. No significant SOB at rest. Her urine has been noted to be red with clots by nursing but the patient is unable to tell me how her urine looked the last time she went. Objective Active Medications: Acetaminophen (Tylenol Tab*) 650 mg PO Q6H PRN PRN Reason: pain/fever Last Admin: 10/11/16 20:23 Dose: 650 mg Benzonatate (Tessalon Cap*) 200 mg PO TID [facility] Last Admin: 10/16/16 19:55 Dose: 200 mg Calcium Carbonate (Tums*) 500 mg PO TID PRN PRN Reason: HEARTBURN Last Admin: 10/15/16 13:11 Dose: 500 mg Guaifenesin (Mucinex*) 1,200 mg PO BID [facility] Last Admin: 10/16/16 19:56 Dose: 1,200 mg Ceftriaxone Sodium 1,000 mg/ (Sodium Chloride) 50 mls @ 200 mls/hr IVPB Q24H [facility] Last Admin: 10/16/16 16:40 Dose: 200 mls/hr Azithromycin 500 mg/ Sodium (Chloride) 250 mls @ 250 mls/hr IVPB Q24H [facility] Last Admin: 10/16/16 16:40 Dose: 250 mls/hr Methylprednisolone Sodium Succinate (Solu-Medrol*) 40 mg IV Q12H [facility] Last Admin: 10/16/16 19:56 Dose: 40 mg Morphine Sulfate (Morphine Inj (Syringe)*) 2 mg IV Q2H PRN PRN Reason: air hunger Last Admin: 10/15/16 14:19 Dose: 2 mg Omeprazole (Prilosec Cap*) 20 mg PO DAILY@0600 [facility] Last Admin: 10/17/16 06:15 Dose: 20 mg Oxycodone HCl (Roxycodone Tab*) 5 mg PO Q6H PRN PRN Reason: Severe cough/Severe pain Last Admin: 10/15/16 13:11 Dose: 5 mg Rivaroxaban (Xarelto (*)) 20 mg PO DAILY@1700 [facility] Last Admin: 10/16/16 16:40 Dose: 20 mg Throat Lozenges (Chloraseptic Kaykay*) 1 kaykay [place] Q2H PRN PRN Reason: COUGH Last Admin: 10/15/16 23:52 Dose: 1 kaykay Vital Signs 10/16/16 10/16/16 10/16/16 07:56 08:00 09:00 Temperature 98.2 F Pulse Rate 77 76 Respiratory 24 18 20 Rate Blood Pressure 148/61 (mmHg) O2 Sat by Pulse 91 92 Oximetry 10/16/16 10/16/16 10/16/16 09:02 09:07 10:00 Temperature Pulse Rate 82 84 77 Respiratory 20 14 21 Rate Blood Pressure 146/68 (mmHg) O2 Sat by Pulse 91 92 95 Oximetry 10/16/16 10/16/16 10/16/16 11:00 11:49 12:00 Temperature Pulse Rate 94 70 Respiratory 21 21 22 Rate Blood Pressure 130/57 (mmHg) O2 Sat by Pulse 94 95 Oximetry 10/16/16 10/16/16 10/16/16 13:00 14:00 15:00 Temperature 98.8 F 99.1 F 98.8 F Pulse Rate 76 73 77 Respiratory 18 20 23 Rate Blood Pressure 123/71 115/55 135/63 (mmHg) O2 Sat by Pulse 94 94 92 Oximetry 10/16/16 10/16/16 10/16/16 16:00 16:56 17:00 Temperature 98.7 F 98.7 F Pulse Rate 80 72 Respiratory 23 23 22 Rate Blood Pressure 139/45 121/59 (mmHg) O2 Sat by Pulse 92 93 Oximetry 10/16/16 10/16/16 10/16/16 17:58 18:00 19:00 Temperature 98.3 F 98.2 F Pulse Rate 72 78 Respiratory 27 24 19 Rate Blood Pressure 145/73 123/44 (mmHg) O2 Sat by Pulse 93 92 Oximetry 10/16/16 10/16/16 10/16/16 19:38 20:00 20:55 Temperature 97.2 F Pulse Rate 75 70 Respiratory 20 26 Rate Blood Pressure 142/70 (mmHg) O2 Sat by Pulse 93 94 Oximetry 10/16/16 10/16/16 10/16/16 21:00 22:00 22:03 Temperature Pulse Rate 67 65 Respiratory 20 24 23 Rate Blood Pressure 132/64 139/81 (mmHg) O2 Sat by Pulse 92 91 Oximetry 10/16/16 10/16/16 10/17/16 23:00 23:12 00:00 Temperature 97.9 F Pulse Rate 121 Respiratory 26 22 Rate Blood Pressure 158/100 (mmHg) O2 Sat by Pulse 91 90 Oximetry 10/17/16 10/17/16 10/17/16 00:01 01:00 02:00 Temperature Pulse Rate 63 67 65 Respiratory 28 25 21 Rate Blood Pressure 159/70 139/60 151/66 (mmHg) O2 Sat by Pulse 90 90 93 Oximetry 10/17/16 10/17/16 10/17/16 03:00 03:45 04:00 Temperature Pulse Rate 70 68 Respiratory 23 24 19 Rate Blood Pressure 150/67 147/63 (mmHg) O2 Sat by Pulse 94 93 Oximetry 10/17/16 10/17/16 10/17/16 05:00 06:00 06:28 Temperature 97.5 F Pulse Rate 67 Respiratory 12 22 Rate Blood Pressure 157/65 160/66 (mmHg) O2 Sat by Pulse 94 Oximetry Oxygen Devices in Use Now: High Flow Nasal Cannula - 40L 80% FiO2-94% Appearance: Elderly female sitting up in bed sleeping, easily awakened to voice , NAD Eyes: No Scleral Icterus Ears/Nose/Mouth/Throat: Mucous Membranes Moist Respiratory: Symmetrical Chest Expansion and Respiratory Effort, Clear to Auscultation - decreased breath sounds throughout Cardiovascular: NL Sounds; No Murmurs; No JVD, RRR, - - 1+ pitting edema L LE Abdominal: NL Sounds; No Tenderness; No Distention Extremities: No Clubbing, Cyanosis Skin: No Rash or Ulcers, No Nodules or Sclerosis Neurological: Alert and Oriented x 3 Result Diagrams: 10/17/16 06:24 10/17/16 06:24 Additional Lab and Data: Lab Results 10/11/16 10/11/16 10/11/16 Range/Units 17:11 17:11 17:11 WBC 13.1 H (3.5-10.8) 10^3/ul RBC 4.59 (4.0-5.4) 10^6/ul Hgb 13.7 (12.0-16.0) g/dl Hct 42 (35-47) % MCV 91 (80-97) fL MCH 30 (27-31) pg MCHC 33 (31-36) g/dl RDW 14 (10.5-15) % Plt Count 324 (150-450) 10^3/ul MPV 8 (7.4-10.4) um3 Immature Gran % (Auto) 13 H (0-9) % Neut % (Auto) 80.7 (38-83) % Lymph % (Auto) 5.4 L (25-47) % [place] % (Auto) 13.7 H (1-9) % Eos % (Auto) 0 (0-6) % Baso % (Auto) 0.2 (0-2) % Absolute Neuts (auto) 10.6 H (1.5-7.7) 10^3/ul Absolute Lymphs (auto) 0.7 L (1.0-4.8) 10^3/ul Absolute Monos (auto) 1.8 H (0-0.8) 10^3/ul Absolute Eos (auto) 0 (0-0.6) 10^3/ul Absolute Basos (auto) 0 (0-0.2) 10^3/ul Absolute Nucleated RBC 0 10^3/ul Neutrophils % 64 (38-83) % Band Neutrophils % 13 H (0-8) % Lymphocytes % 8 L (25-47) % Reactive Lymphs % 2 (0-6) % Monocytes % 13 (0-13) % Nucleated RBC % 0 Normal RBC Morphology Not Reportable Polychromasia 1+ Hypochromasia 1+ Macrocytosis 1+ INR (Anticoag Therapy) 2.94 H (0.89-1.11) APTT 38.7 H (26.0-36.3) seconds Sodium 134 (133-145) mmol/L Potassium 3.2 L (3.5-5.0) mmol/L Chloride 99 L (101-111) mmol/L Carbon Dioxide 21 L (22-32) mmol/L Anion Gap 14 H (2-11) mmol/L BUN 29 H (6-24) mg/dL Creatinine 0.96 H (0.51-0.95) mg/dL Est GFR ( Amer) 70.9 (>60) Est GFR (Non-Af Amer) 55.1 (>60) BUN/Creatinine Ratio 30.2 H (8-20) Glucose 121 H (70-100) mg/dL Lactic Acid (0.5-2.0) mmol/L Calcium 7.5 L (8.6-10.3) mg/dL Total Bilirubin 1.60 H (0.2-1.0) mg/dL AST 28 (13-39) U/L ALT 16 (7-52) U/L Alkaline Phosphatase 90 (34-104) U/L Troponin I 0.03 (<0.04) ng/mL C-Reactive Protein 340.21 H (< 5.00) mg/L Total Protein 6.9 (6.4-8.9) g/dL Albumin 3.2 (3.2-5.2) g/dL Globulin 3.7 (2-4) g/dL Albumin/Globulin Ratio 0.9 L (1-3) Influenza A (Rapid) (Negative) Influenza B (Rapid) (Negative) 10/11/16 10/11/16 Range/Units 17:11 18:14 WBC (3.5-10.8) 10^3/ul RBC (4.0-5.4) 10^6/ul Hgb (12.0-16.0) g/dl Hct (35-47) % MCV (80-97) fL MCH (27-31) pg MCHC (31-36) g/dl RDW (10.5-15) % Plt Count (150-450) 10^3/ul MPV (7.4-10.4) um3 Immature Gran % (Auto) (0-9) % Neut % (Auto) (38-83) % Lymph % (Auto) (25-47) % [place] % (Auto) (1-9) % Eos % (Auto) (0-6) % Baso % (Auto) (0-2) % Absolute Neuts (auto) (1.5-7.7) 10^3/ul Absolute Lymphs (auto) (1.0-4.8) 10^3/ul Absolute Monos (auto) (0-0.8) 10^3/ul Absolute Eos (auto) (0-0.6) 10^3/ul Absolute Basos (auto) (0-0.2) 10^3/ul Absolute Nucleated RBC 10^3/ul Neutrophils % (38-83) % Band Neutrophils % (0-8) % Lymphocytes % (25-47) % Reactive Lymphs % (0-6) % Monocytes % (0-13) % Nucleated RBC % Normal RBC Morphology Polychromasia Hypochromasia Macrocytosis INR (Anticoag Therapy) (0.89-1.11) APTT (26.0-36.3) seconds Sodium (133-145) mmol/L Potassium (3.5-5.0) mmol/L Chloride (101-111) mmol/L Carbon Dioxide (22-32) mmol/L Anion Gap (2-11) mmol/L BUN (6-24) mg/dL Creatinine (0.51-0.95) mg/dL Est GFR ( Amer) (>60) Est GFR (Non-Af Amer) (>60) BUN/Creatinine Ratio (8-20) Glucose (70-100) mg/dL Lactic Acid 1.4 (0.5-2.0) mmol/L Calcium (8.6-10.3) mg/dL Total Bilirubin (0.2-1.0) mg/dL AST (13-39) U/L ALT (7-52) U/L Alkaline Phosphatase (34-104) U/L Troponin I (<0.04) ng/mL C-Reactive Protein (< 5.00) mg/L Total Protein (6.4-8.9) g/dL Albumin (3.2-5.2) g/dL Globulin (2-4) g/dL Albumin/Globulin Ratio (1-3) Influenza A (Rapid) Negative (Negative) Influenza B (Rapid) Negative (Negative) Microbiology and Other Data: Microbiology 10/12/16 17:00 Legionella Urinary Antigen - Final Urine Negative Legionella Streptococcus pneumoniae Ag Screen - Final Negative S. pneumo Antigen 10/11/16 20:19 Aerobic Blood Culture - Preliminary Blood Venous No Growth Day 1 Anaerobic Blood Culture - Preliminary No Growth Day 1 Assess/Plan/Problems-Billing Ms. 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 - Patient Problems (1) Severe sepsis Current Visit: Yes Status: Acute Code(s): A41.9 - SEPSIS, UNSPECIFIED ORGANISM; R65.20 - SEVERE SEPSIS WITHOUT SEPTIC SHOCK SNOMED Code(s): 79292065 Comment: The patient was septic on admission and had a SOFA score of 2 on admission (1 pt for MAP<70 and 1pt for elevated bilirubin). Her sepsis has resolved. (2) Acute hypoxemic respiratory failure Current Visit: Yes Status: Acute Code(s): J96.01 - ACUTE RESPIRATORY FAILURE WITH HYPOXIA SNOMED Code(s): 879130134 Comment: Secondary to bibasilar pneumonia. Continue vapotherm- FiO2 had to be turned up last night. Continue to try to wean to NC- will try to be aggressive in the weaning process. (3) Pneumonia Current Visit: Yes Status: Acute Code(s): J18.9 - PNEUMONIA, UNSPECIFIED ORGANISM SNOMED Code(s): 384293563 Comment: No pathogen has been identified to date. The patient describes feeling ok then suddenly becoming ill-? S pneumoniae. Pt is very slowly recovering from her community accquired pneumonia. Continue ceftriaxone and azithromycin. Continue vapotherm for acute hypoxic respiratory failure. Continue monitoring in the ICU. WBC count down slightly today. The patient is discouraged though I think she will recover with time and I have explained this to her. Will add flutter valve today. (4) SWAPNIL (acute kidney injury) Current Visit: Yes Status: Acute Code(s): N17.9 - ACUTE KIDNEY FAILURE, UNSPECIFIED SNOMED Code(s): 04383944 Comment: Resolved. (5) DVT (deep venous thrombosis) Current Visit: Yes Status: Acute Code(s): I82.409 - ACUTE EMBOLISM AND THOMBOS UNSP DEEP VN UNSP LOWER EXTREMITY SNOMED Code(s): 704021008 Comment: Continue xarelto- 1+ pitting edema L LE. (6) Hematuria Current Visit: Yes Status: Acute Code(s): R31.9 - HEMATURIA, UNSPECIFIED SNOMED Code(s): 36445516 Comment: Secondary to watters catheter in the setting of xarelto use. Sounds as if the patient's urine became bloodier after the watters was removed. Will follow this and make sure her urine clears. (7) DVT prophylaxis Current Visit: Yes Status: Acute Code(s): VSZ2783 - SNOMED Code(s): 911046685 Comment: xarelto (8) DNR (do not resuscitate) Current Visit: Yes Status: Acute Comment: DNR with trial intubation if necessary. Status and Disposition: .
[2016-10-17] MEDS: methylPREDNISolone SOD SUCC* 40 MG/ML VIAL IV SCH ×2 (08:13→20:57)
[2016-10-17] MEDS: guaiFENesin ER TAB 600 MG PO SCH ×2 (08:13→20:57)
[2016-10-17] MEDS: Benzonatate CAP* 100 MG PO SCH ×3 (08:14→20:56)
[2016-10-17] MEDS ORDERED: Furosemide IV* 10 MG/ML 2 ML VIAL (20 MG) IV SLOW PU ONE (13:00)
--- NOTE | 2016-10-17 13:25 | PN ---
Progress Note - Progress Note Note: Pulm consult f/u note 10/17/16. Pt seen and examined at bedside. Pt reported feeling better. Cough is less intense. Active Medications Generic Name Dose Route Start Last Admin Trade Name Freq PRN Reason Stop Dose Admin Acetaminophen 650 mg 10/11/16 19:00 10/11/16 20:23 Tylenol Tab* PO 650 mg Q6H PRN Administration pain/fever Benzonatate 200 mg 10/12/16 14:00 10/17/16 08:14 Tessalon Cap* PO 200 mg TID [facility] Administration Calcium Carbonate 500 mg 10/14/16 18:23 10/15/16 13:11 Tums* PO 500 mg TID PRN Administration HEARTBURN Guaifenesin 1,200 mg 10/16/16 02:00 10/17/16 08:13 Mucinex* PO 1,200 mg BID [facility] Administration Ceftriaxone Sodium 1,000 mg/ 50 mls @ 200 mls/hr 10/12/16 16:00 10/16/16 16: 40 Sodium Chloride IVPB 200 mls/hr Q24H [facility] Administration Azithromycin 500 mg/ Sodium 250 mls @ 250 mls/hr 10/12/16 17:00 10/16/16 16: 40 Chloride IVPB 250 mls/hr Q24H [facility] Administration Methylprednisolone Sodium Succinate 40 mg 10/14/16 09:00 10/17/16 08:13 Solu-Medrol* IV 40 mg Q12H [facility] Administration Morphine Sulfate 2 mg 10/12/16 02:28 10/15/16 14:19 Morphine Inj (Syringe)* IV 2 mg Q2H PRN Administration air hunger Omeprazole 20 mg 10/12/16 06:00 10/17/16 06:15 Prilosec Cap* PO 20 mg DAILY@0600 [facility] Administration Oxycodone HCl 5 mg 10/12/16 12:11 10/15/16 13:11 Roxycodone Tab* PO 5 mg Q6H PRN Administration Severe cough/Severe pain Rivaroxaban 20 mg 10/12/16 17:00 10/16/16 16:40 Xarelto (*) PO 20 mg DAILY@1700 [facility] Administration Throat Lozenges 1 kaykay 10/15/16 23:52 10/15/16 23:52 Chloraseptic Kaykay* MT 1 kaykay Q2H PRN Administration COUGH Vital Signs Temp Pulse Resp BP Pulse Ox 98.5 F 78 21 108/77 95 10/17/16 12:00 10/17/16 13:00 10/17/16 13:00 10/17/16 13:00 10/17/16 13:00 Gen:awake, not in distress HEENT: PERRLA, NO JVD Neuro:Ox3, answers all questions, no focal defects Neck:supple Heart: RRR no murmur Lungs: decreased BS at bases, no wheeze or rales Abd:+BS NTND soft Skin: no rash MSK: no spine tenderness Laboratory Results - last 24 hr 10/17/16 10/17/16 06:24 06:24 WBC 14.5 H RBC 4.76 Hgb 14.3 Hct 43 MCV 91 MCH 30 MCHC 33 RDW 15 Plt Count 447 MPV 8 Neut % (Auto) 86.1 H Lymph % (Auto) 7.7 L [place] % (Auto) 5.8 Eos % (Auto) 0.1 Baso % (Auto) 0.3 Absolute Neuts (auto) 12.5 H Absolute Lymphs (auto) 1.1 Absolute Monos (auto) 0.8 Absolute Eos (auto) 0 Absolute Basos (auto) 0 Absolute Nucleated RBC 0.01 Nucleated RBC % 0.1 Sodium 137 Potassium 4.1 Chloride 99 L Carbon Dioxide 31 Anion Gap 7 BUN 17 Creatinine 0.49 L Est GFR ( Amer) 154.0 Est GFR (Non-Af Amer) 119.7 BUN/Creatinine Ratio 34.7 H Glucose 153 H Calcium 7.8 L C-Reactive Protein 73.41 H Impression/Recommendations: 1. Acute hypoxemic respiratory failure, improved signficantly, on RA this afternoon 2. Multifocal pneumonia, community acquired, improving Continue cefrtiaxone and azithromycin, c/w O2, will begin steroid taper Pt on RA this afternoon Cough is improved CRP is coming down PT, OOB to chair as tolerated
[2016-10-17] MEDS ORDERED: Furosemide IV* 10 MG/ML 2 ML VIAL (20 MG) ONE (14:14)
[2016-10-17] MEDS: cefTRIAXone VIAL(*) 1,000 MG in NS 0.9% 50 ML* 50 ML IVPB SCH (16:51)
[2016-10-17] MEDS: Rivaroxaban TAB(*) 20 MG TAB PO SCH (17:15)
[2016-10-17] MEDS: Azithromycin IV(*) 500 MG in NS 0.9% 250 ML* 250 ML IVPB SCH (17:15)
[2016-10-17] MEDS: Benzocaine/Menthol LOZ* 1 LOZENGE MT PRN (23:49)
[2016-10-18] MEDS: Acetaminophen TAB* 325 MG PO PRN (04:29)
[2016-10-18] MEDS: Omeprazole CAP* 20 MG PO SCH (04:29)
--- NOTE | 2016-10-18 07:49 | PN ---
Subjective Date of Service: 10/18/16 Interval History: Pt states she had a bad night. She c/o feeling achy all over. She states she was coughing quite a bit last night and actually vomited some. She feels discouraged and she states she feels worse today than she did yesterday. Objective Active Medications: Acetaminophen (Tylenol Tab*) 650 mg PO Q6H PRN PRN Reason: pain/fever Last Admin: 10/18/16 04:29 Dose: 650 mg Benzonatate (Tessalon Cap*) 200 mg PO TID [facility] Last Admin: 10/17/16 20:56 Dose: 200 mg Calcium Carbonate (Tums*) 500 mg PO TID PRN PRN Reason: HEARTBURN Last Admin: 10/15/16 13:11 Dose: 500 mg Guaifenesin (Mucinex*) 1,200 mg PO BID [facility] Last Admin: 10/17/16 20:57 Dose: 1,200 mg Ceftriaxone Sodium 1,000 mg/ (Sodium Chloride) 50 mls @ 200 mls/hr IVPB Q24H [facility] Last Admin: 10/17/16 16:51 Dose: 200 mls/hr Azithromycin 500 mg/ Sodium (Chloride) 250 mls @ 250 mls/hr IVPB Q24H [facility] Last Admin: 10/17/16 17:15 Dose: 250 mls/hr Methylprednisolone Sodium Succinate (Solu-Medrol*) 40 mg IV Q12H [facility] Last Admin: 10/17/16 20:57 Dose: 40 mg Morphine Sulfate (Morphine Inj (Syringe)*) 2 mg IV Q2H PRN PRN Reason: air hunger Last Admin: 10/15/16 14:19 Dose: 2 mg Omeprazole (Prilosec Cap*) 20 mg PO DAILY@0600 [facility] Last Admin: 10/18/16 04:29 Dose: 20 mg Oxycodone HCl (Roxycodone Tab*) 5 mg PO Q6H PRN PRN Reason: Severe cough/Severe pain Last Admin: 10/15/16 13:11 Dose: 5 mg Rivaroxaban (Xarelto (*)) 20 mg PO DAILY@1700 [facility] Last Admin: 10/17/16 17:15 Dose: 20 mg Throat Lozenges (Chloraseptic Kaykay*) 1 kaykay MT Q2H PRN PRN Reason: COUGH Last Admin: 10/17/16 23:49 Dose: 1 kaykay Vital Signs 10/17/16 10/17/16 10/17/16 07:59 08:00 09:00 Temperature 97.4 F Pulse Rate 75 83 Respiratory 19 16 Rate Blood Pressure 167/75 134/93 (mmHg) O2 Sat by Pulse 96 93 Oximetry 10/17/16 10/17/16 10/17/16 10:00 11:00 12:00 Temperature 98.5 F Pulse Rate 75 77 73 Respiratory 21 18 28 Rate Blood Pressure 134/59 126/65 130/77 (mmHg) O2 Sat by Pulse 96 96 97 Oximetry 10/17/16 10/17/16 10/17/16 13:00 14:00 14:06 Temperature Pulse Rate 78 85 Respiratory 21 17 18 Rate Blood Pressure 108/77 120/69 (mmHg) O2 Sat by Pulse 95 96 Oximetry 10/17/16 10/17/16 10/17/16 14:58 15:00 15:01 Temperature Pulse Rate 77 Respiratory 22 26 16 Rate Blood Pressure 126/57 (mmHg) O2 Sat by Pulse 95 Oximetry 10/17/16 10/17/16 10/17/16 15:36 16:00 16:44 Temperature 98.1 F Pulse Rate 89 Respiratory 25 Rate Blood Pressure 124/66 (mmHg) O2 Sat by Pulse 94 97 Oximetry 10/17/16 10/17/16 10/17/16 16:45 17:00 17:53 Temperature Pulse Rate 68 74 Respiratory 19 19 26 Rate Blood Pressure 123/55 (mmHg) O2 Sat by Pulse 95 95 98 Oximetry 10/17/16 10/17/16 10/17/16 18:00 18:02 19:00 Temperature Pulse Rate 77 Respiratory 22 16 20 Rate Blood Pressure 118/29 (mmHg) O2 Sat by Pulse 98 Oximetry 10/17/16 10/17/16 10/17/16 20:00 21:00 21:16 Temperature 97.4 F Pulse Rate 89 92 104 Respiratory 17 21 21 Rate Blood Pressure 113/78 127/68 (mmHg) O2 Sat by Pulse 92 92 93 Oximetry 10/17/16 10/17/16 10/17/16 22:00 22:54 23:00 Temperature Pulse Rate 74 68 69 Respiratory 14 25 23 Rate Blood Pressure 154/71 158/66 (mmHg) O2 Sat by Pulse 93 93 93 Oximetry 10/17/16 10/17/16 10/18/16 23:16 23:54 00:01 Temperature 99.1 F Pulse Rate 65 Respiratory 22 27 Rate Blood Pressure 155/76 (mmHg) O2 Sat by Pulse 92 94 Oximetry 10/18/16 10/18/16 10/18/16 01:00 02:00 03:00 Temperature Pulse Rate 72 71 68 Respiratory 2 22 10 Rate Blood Pressure 159/73 162/74 163/81 (mmHg) O2 Sat by Pulse 95 95 95 Oximetry 10/18/16 10/18/16 10/18/16 03:42 04:00 04:36 Temperature 98.1 F Pulse Rate 68 Respiratory 22 23 Rate Blood Pressure 159/69 (mmHg) O2 Sat by Pulse 94 Oximetry 10/18/16 10/18/16 10/18/16 05:00 05:25 06:00 Temperature Pulse Rate 69 67 67 Respiratory 17 20 16 Rate Blood Pressure 146/69 159/61 (mmHg) O2 Sat by Pulse 93 94 92 Oximetry 10/18/16 07:28 Temperature 98.1 F Pulse Rate Respiratory Rate Blood Pressure (mmHg) O2 Sat by Pulse Oximetry Oxygen Devices in Use Now: Nasal Cannula - 10L-94% Appearance: Elderly female sitting up in bed, NAD Eyes: No Scleral Icterus Ears/Nose/Mouth/Throat: Mucous Membranes Moist Respiratory: Symmetrical Chest Expansion and Respiratory Effort, Clear to Auscultation Cardiovascular: NL Sounds; No Murmurs; No JVD, RRR, - - 1+ pitting edema of B/L LE Abdominal: NL Sounds; No Tenderness; No Distention Extremities: No Clubbing, Cyanosis Skin: No Rash or Ulcers, No Nodules or Sclerosis Neurological: Alert and Oriented x 3, - - appears somewhat withdrawn Result Diagrams: 10/17/16 06:24 10/17/16 06:24 Additional Lab and Data: Lab Results 10/11/16 10/11/16 10/11/16 Range/Units 17:11 17:11 17:11 WBC 13.1 H (3.5-10.8) 10^3/ul RBC 4.59 (4.0-5.4) 10^6/ul Hgb 13.7 (12.0-16.0) g/dl Hct 42 (35-47) % MCV 91 (80-97) fL MCH 30 (27-31) pg MCHC 33 (31-36) g/dl RDW 14 (10.5-15) % Plt Count 324 (150-450) 10^3/ul MPV 8 (7.4-10.4) um3 Immature Gran % (Auto) 13 H (0-9) % Neut % (Auto) 80.7 (38-83) % Lymph % (Auto) 5.4 L (25-47) % [place] % (Auto) 13.7 H (1-9) % Eos % (Auto) 0 (0-6) % Baso % (Auto) 0.2 (0-2) % Absolute Neuts (auto) 10.6 H (1.5-7.7) 10^3/ul Absolute Lymphs (auto) 0.7 L (1.0-4.8) 10^3/ul Absolute Monos (auto) 1.8 H (0-0.8) 10^3/ul Absolute Eos (auto) 0 (0-0.6) 10^3/ul Absolute Basos (auto) 0 (0-0.2) 10^3/ul Absolute Nucleated RBC 0 10^3/ul Neutrophils % 64 (38-83) % Band Neutrophils % 13 H (0-8) % Lymphocytes % 8 L (25-47) % Reactive Lymphs % 2 (0-6) % Monocytes % 13 (0-13) % Nucleated RBC % 0 Normal RBC Morphology Not Reportable Polychromasia 1+ Hypochromasia 1+ Macrocytosis 1+ INR (Anticoag Therapy) 2.94 H (0.89-1.11) APTT 38.7 H (26.0-36.3) seconds Sodium 134 (133-145) mmol/L Potassium 3.2 L (3.5-5.0) mmol/L Chloride 99 L (101-111) mmol/L Carbon Dioxide 21 L (22-32) mmol/L Anion Gap 14 H (2-11) mmol/L BUN 29 H (6-24) mg/dL Creatinine 0.96 H (0.51-0.95) mg/dL Est GFR ( Amer) 70.9 (>60) Est GFR (Non-Af Amer) 55.1 (>60) BUN/Creatinine Ratio 30.2 H (8-20) Glucose 121 H (70-100) mg/dL Lactic Acid (0.5-2.0) mmol/L Calcium 7.5 L (8.6-10.3) mg/dL Total Bilirubin 1.60 H (0.2-1.0) mg/dL AST 28 (13-39) U/L ALT 16 (7-52) U/L Alkaline Phosphatase 90 (34-104) U/L Troponin I 0.03 (<0.04) ng/mL C-Reactive Protein 340.21 H (< 5.00) mg/L Total Protein 6.9 (6.4-8.9) g/dL Albumin 3.2 (3.2-5.2) g/dL Globulin 3.7 (2-4) g/dL Albumin/Globulin Ratio 0.9 L (1-3) Influenza A (Rapid) (Negative) Influenza B (Rapid) (Negative) 10/11/16 10/11/16 Range/Units 17:11 18:14 WBC (3.5-10.8) 10^3/ul RBC (4.0-5.4) 10^6/ul Hgb (12.0-16.0) g/dl Hct (35-47) % MCV (80-97) fL MCH (27-31) pg MCHC (31-36) g/dl RDW (10.5-15) % Plt Count (150-450) 10^3/ul MPV (7.4-10.4) um3 Immature Gran % (Auto) (0-9) % Neut % (Auto) (38-83) % Lymph % (Auto) (25-47) % [place] % (Auto) (1-9) % Eos % (Auto) (0-6) % Baso % (Auto) (0-2) % Absolute Neuts (auto) (1.5-7.7) 10^3/ul Absolute Lymphs (auto) (1.0-4.8) 10^3/ul Absolute Monos (auto) (0-0.8) 10^3/ul Absolute Eos (auto) (0-0.6) 10^3/ul Absolute Basos (auto) (0-0.2) 10^3/ul Absolute Nucleated RBC 10^3/ul Neutrophils % (38-83) % Band Neutrophils % (0-8) % Lymphocytes % (25-47) % Reactive Lymphs % (0-6) % Monocytes % (0-13) % Nucleated RBC % Normal RBC Morphology Polychromasia Hypochromasia Macrocytosis INR (Anticoag Therapy) (0.89-1.11) APTT (26.0-36.3) seconds Sodium (133-145) mmol/L Potassium (3.5-5.0) mmol/L Chloride (101-111) mmol/L Carbon Dioxide (22-32) mmol/L Anion Gap (2-11) mmol/L BUN (6-24) mg/dL Creatinine (0.51-0.95) mg/dL Est GFR ( Amer) (>60) Est GFR (Non-Af Amer) (>60) BUN/Creatinine Ratio (8-20) Glucose (70-100) mg/dL Lactic Acid 1.4 (0.5-2.0) mmol/L Calcium (8.6-10.3) mg/dL Total Bilirubin (0.2-1.0) mg/dL AST (13-39) U/L ALT (7-52) U/L Alkaline Phosphatase (34-104) U/L Troponin I (<0.04) ng/mL C-Reactive Protein (< 5.00) mg/L Total Protein (6.4-8.9) g/dL Albumin (3.2-5.2) g/dL Globulin (2-4) g/dL Albumin/Globulin Ratio (1-3) Influenza A (Rapid) Negative (Negative) Influenza B (Rapid) Negative (Negative) Microbiology and Other Data: Microbiology 10/12/16 17:00 Legionella Urinary Antigen - Final Urine Negative Legionella Streptococcus pneumoniae Ag Screen - Final Negative S. pneumo Antigen 10/11/16 20:19 Aerobic Blood Culture - Preliminary Blood Venous No Growth Day 1 Anaerobic Blood Culture - Preliminary No Growth Day 1 Assess/Plan/Problems-Billing Ms. 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 - Patient Problems (1) Severe sepsis Current Visit: Yes Status: Acute Code(s): A41.9 - SEPSIS, UNSPECIFIED ORGANISM; R65.20 - SEVERE SEPSIS WITHOUT SEPTIC SHOCK SNOMED Code(s): 39399578 Comment: The patient was septic on admission and had a SOFA score of 2 on admission (1 pt for MAP<70 and 1pt for elevated bilirubin). Her sepsis has resolved. (2) Acute hypoxemic respiratory failure Current Visit: Yes Status: Acute Code(s): J96.01 - ACUTE RESPIRATORY FAILURE WITH HYPOXIA SNOMED Code(s): 418701050 Comment: Secondary to bibasilar pneumonia. Hypoxic respiratory failure is improving. She is down to 10L and sat'ing in the low to mid 90's. Will try to wean O2 further today. Yesterday it was noted the patient desaturates while sleeping. She will need a formal sleep study when she has recovered and is outpatient. Prior to leaving the hospital will do a nocturnal desaturation study. (3) Pneumonia Current Visit: Yes Status: Acute Code(s): J18.9 - PNEUMONIA, UNSPECIFIED ORGANISM SNOMED Code(s): 077136522 Comment: Pt is slowly improving though she feels somewhat worse today. I think she is getting depressed due to not recovering faster. Will continue ceftriaxone and azithromycin for now. Wean O2 today. Will try to get the patient up and moving more today. Possibly transfer to the floor. (4) SWAPNIL (acute kidney injury) Current Visit: Yes Status: Acute Code(s): N17.9 - ACUTE KIDNEY FAILURE, UNSPECIFIED SNOMED Code(s): 46051473 Comment: Resolved. (5) DVT (deep venous thrombosis) Current Visit: Yes Status: Acute Code(s): I82.409 - ACUTE EMBOLISM AND THOMBOS UNSP DEEP VN UNSP LOWER EXTREMITY SNOMED Code(s): 503712767 Comment: Continue xarelto. (6) Hematuria Current Visit: Yes Status: Acute Code(s): R31.9 - HEMATURIA, UNSPECIFIED SNOMED Code(s): 76092861 Comment: Pt continues to have hematuria. Follow. (7) DVT prophylaxis Current Visit: Yes Status: Acute Code(s): MVB9284 - SNOMED Code(s): 414396775 Comment: xarelto (8) DNR (do not resuscitate) Current Visit: Yes Status: Acute Comment: DNR with trial intubation if necessary. Status and Disposition: .
[2016-10-18] MEDS: methylPREDNISolone SOD SUCC* 40 MG/ML VIAL IV SCH ×2 (08:36→20:17)
[2016-10-18] MEDS: Benzonatate CAP* 100 MG PO SCH ×3 (08:36→20:17)
[2016-10-18] MEDS: guaiFENesin ER TAB 600 MG PO SCH ×2 (08:37→20:19)
--- NOTE | 2016-10-18 12:57 | PN ---
Progress Note - Progress Note SOAP: Subjective: DOS: 10/17/16 CC: hypoxia HPI: 86 year old woman with multifocal pneumonia, occasional cough which is not productive. O2 has been weaned down and she is up in the room without dyspnea. Objective: [] Vital Signs Temp 37.0 C 10/18/16 11:53 Pulse 73 10/18/16 12:00 Resp 22 10/18/16 12:00 BP 99/79 10/18/16 11:00 Pulse Ox 94 10/18/16 12:00 Intake & Output 10/17/16 10/18/16 10/18/16 18:59 06:59 18:59 Intake Total 800 450 350 Output Total 700 1700 300 Balance 100 -1250 50 Weight 169 lb 8.568 oz Intake: IVPB 250 abx 250 Oral 800 200 350 Output: Urine 700 1700 300 Other: Estimated Void Medium Date of Last Bowel 10/17/16 10/18/16 10/18/16 Movement # Bowel Movements 1 1 1 Estimated Stool Amount Medium Small Medium # Voids 2 Gen:awake, not in distress Neuro:Ox3, answers all questions Neck:supple Heart: RRR no murmur Lungs: decreased BS at bases, no wheeze or rales Abd:+BS NTND soft Skin: no rash MSK: no spine tenderness Microbiology 10/12/16 17:18 Aerobic Blood Culture - Final Blood Venous No Growth Day 5 Anaerobic Blood Culture - Final No Growth Day 5 Blood Culture - Final Assessment: 1. acute hypoxemic respiratory failure, present on admission, improving 2. multifocal pneumonia, community acquired 3. elevated CRP, decreasing 4. hx DVT on anticoagulation 5. gross hematuria Plan: 1. continue ceftriaxone day 02/25, DC azithromycin, steroids per primary team
[2016-10-18] MEDS: cefTRIAXone VIAL(*) 1,000 MG in NS 0.9% 50 ML* 50 ML IVPB SCH (18:12)
[2016-10-18] MEDS: Rivaroxaban TAB(*) 20 MG TAB PO SCH (18:12)
[2016-10-19] MEDS: oxyCODONE TAB* 5 MG TAB PO PRN (06:14)
[2016-10-19] MEDS: Omeprazole CAP* 20 MG PO SCH (06:14)
[2016-10-19 06:18] LABS: Hematocrit 43 % (35-47); Mean Corpuscular HGB Conc 33 g/dl (31-36); Mean Corpuscular Hemoglobin 30 pg (27-31); Mean Corpuscular Volume 92 fL (80-97); Mean Platelet Volume 8 um3 (7.4-10.4); Red Blood Count 4.64 10^6/ul (4.0-5.4); Red Cell Distribution Width 14 % (10.5-15); White Blood Count 10.2 10^3/ul (3.5-10.8)
[2016-10-19 06:34] LABS: Calcium 7.7 mg/dL (8.6-10.3); EGFR African American 150.4 (>60)
[2016-10-19] MEDS: Acetaminophen TAB* 325 MG PO PRN (08:00)
--- NOTE | 2016-10-19 08:37 | PN ---
Progress Note - Progress Note SOAP: Subjective: DOS: 10/19/16 CC: hypoxia HPI: 86 year old woman with multifocal pneumonia, occasional cough which is not productive. Ambulating with PT. Not dyspneic, some cough, no chest pain. No fever or rash. Objective: [] Vital Signs Temp 36.4 C 10/19/16 03:10 Pulse 72 10/19/16 03:10 Resp 16 10/19/16 06:14 BP 169/64 10/19/16 03:10 Pulse Ox 92 10/19/16 03:10 Intake & Output 10/18/16 10/19/16 10/19/16 18:59 06:59 18:59 Intake Total 710 220 Output Total 775 Balance -65 220 Intake: IV Fluids 20 ABX - CEFTRIAXONE 20 IVPB 60 ABX - CEFTRIAXONE 60 Oral 710 140 Output: Urine 775 Other: Estimated Void Medium Date of Last Bowel 10/18/16 Movement # Bowel Movements 1 1 Estimated Stool Amount Medium Small # Voids 1 Gen:awake, not in distress Neuro:Ox3, answers all questions Neck:supple Heart: RRR no murmur Lungs: decreased BS at bases, no wheeze or rales Abd:+BS NTND soft Skin: no rash MSK: no spine tenderness Laboratory Results - last 24 hr 10/19/16 10/19/16 06:06 06:06 WBC 10.2 RBC 4.64 Hgb 14.0 Hct 43 MCV 92 MCH 30 MCHC 33 RDW 14 Plt Count 382 MPV 8 Sodium 135 Potassium 4.0 Chloride 104 Carbon Dioxide 27 Anion Gap 4 BUN 20 Creatinine 0.50 L Est GFR ( Amer) 150.4 Est GFR (Non-Af Amer) 117.0 BUN/Creatinine Ratio 40.0 H Glucose 161 H Calcium 7.7 L Assessment: 1. acute hypoxemic respiratory failure, present on admission, improving 2. multifocal pneumonia, community acquired 3. elevated CRP, decreasing 4. hx DVT on anticoagulation 5. gross hematuria Plan: 1. Day 9 of ceftriaxone will dc after today's dose. Wean O2 as possible. PT/ OT.
[2016-10-19] MEDS: guaiFENesin ER TAB 600 MG PO SCH ×2 (10:07→21:50)
[2016-10-19] MEDS: Benzonatate CAP* 100 MG PO SCH ×3 (10:18→21:48)
[2016-10-19] MEDS: methylPREDNISolone SOD SUCC* 40 MG/ML VIAL IV SCH ×2 (10:18→21:49)
--- NOTE | 2016-10-19 10:55 | PN ---
Subjective Date of Service: 10/19/16 Interval History: Pt is feeling better. She worked with PT and she did well. She continues to have a harsh cough. She is feeling better in terms of her spirits. Objective Active Medications: Acetaminophen (Tylenol Tab*) 650 mg PO Q6H PRN PRN Reason: pain/fever Last Admin: 10/19/16 08:00 Dose: 650 mg Amlodipine Besylate (Norvasc Tab*) 5 mg PO DAILY [facility] Benzonatate (Tessalon Cap*) 200 mg PO TID [facility] Last Admin: 10/19/16 10:18 Dose: 200 mg Calcium Carbonate (Tums*) 500 mg PO TID PRN PRN Reason: HEARTBURN Last Admin: 10/15/16 13:11 Dose: 500 mg Guaifenesin (Mucinex*) 1,200 mg PO BID [facility] Last Admin: 10/19/16 10:07 Dose: Not Given Ceftriaxone Sodium 1,000 mg/ (Sodium Chloride) 50 mls @ 200 mls/hr IVPB Q24H [facility] Stop: 10/19/16 23:59 Last Admin: 10/18/16 18:12 Dose: 200 mls/hr Methylprednisolone Sodium Succinate (Solu-Medrol*) 40 mg IV Q12H [facility] Last Admin: 10/19/16 10:18 Dose: 40 mg Morphine Sulfate (Morphine Inj (Syringe)*) 2 mg IV Q2H PRN PRN Reason: air hunger Last Admin: 10/15/16 14:19 Dose: 2 mg Omeprazole (Prilosec Cap*) 20 mg PO DAILY@0600 [facility] Last Admin: 10/19/16 06:14 Dose: 20 mg Oxycodone HCl (Roxycodone Tab*) 5 mg PO Q6H PRN PRN Reason: Severe cough/Severe pain Last Admin: 10/19/16 06:14 Dose: 5 mg Rivaroxaban (Xarelto (*)) 20 mg PO DAILY@1700 [facility] Last Admin: 10/18/16 18:12 Dose: 20 mg Throat Lozenges (Chloraseptic Kaykay*) 1 kaykay MT Q2H PRN PRN Reason: COUGH Last Admin: 10/17/16 23:49 Dose: 1 kaykay Vital Signs 10/18/16 10/18/16 10/18/16 10:59 11:00 11:53 Temperature 98.6 F Pulse Rate Respiratory 21 Rate Blood Pressure 99/79 (mmHg) O2 Sat by Pulse 95 Oximetry 10/18/16 10/18/16 10/18/16 12:00 14:32 14:35 Temperature 98.0 F 98.0 F Pulse Rate 73 81 81 Respiratory 22 18 Rate Blood Pressure 154/70 154/70 (mmHg) O2 Sat by Pulse 94 97 97 Oximetry 10/18/16 10/18/16 10/18/16 16:09 16:12 19:17 Temperature 98.0 F 97.7 F Pulse Rate 81 72 Respiratory 20 22 Rate Blood Pressure 139/67 148/63 (mmHg) O2 Sat by Pulse 97 97 97 Oximetry 10/18/16 10/19/16 10/19/16 20:00 00:00 00:26 Temperature 97.5 F Pulse Rate 65 Respiratory 20 18 Rate Blood Pressure 152/72 (mmHg) O2 Sat by Pulse 91 91 Oximetry 10/19/16 10/19/16 10/19/16 03:10 06:14 07:41 Temperature 97.6 F 98.0 F Pulse Rate 72 77 Respiratory 16 16 Rate Blood Pressure 169/64 140/70 (mmHg) O2 Sat by Pulse 92 95 Oximetry 10/19/16 10/19/16 10/19/16 08:00 08:14 10:10 Temperature Pulse Rate Respiratory 16 16 Rate Blood Pressure (mmHg) O2 Sat by Pulse 98 Oximetry Oxygen Devices in Use Now: Nasal Cannula - 8L-98% Appearance: Eldelry female sitting in a chair, NAD Eyes: No Scleral Icterus Ears/Nose/Mouth/Throat: Mucous Membranes Moist Respiratory: Symmetrical Chest Expansion and Respiratory Effort, Clear to Auscultation - with RLL crackles Cardiovascular: NL Sounds; No Murmurs; No JVD, RRR, - - 1+ L LE edema Abdominal: NL Sounds; No Tenderness; No Distention Extremities: No Clubbing, Cyanosis Skin: No Rash or Ulcers, No Nodules or Sclerosis Neurological: Alert and Oriented x 3 Result Diagrams: 10/19/16 06:06 10/19/16 06:06 Additional Lab and Data: Lab Results 10/11/16 10/11/16 10/11/16 Range/Units 17:11 17:11 17:11 WBC 13.1 H (3.5-10.8) 10^3/ul RBC 4.59 (4.0-5.4) 10^6/ul Hgb 13.7 (12.0-16.0) g/dl Hct 42 (35-47) % MCV 91 (80-97) fL MCH 30 (27-31) pg MCHC 33 (31-36) g/dl RDW 14 (10.5-15) % Plt Count 324 (150-450) 10^3/ul MPV 8 (7.4-10.4) um3 Immature Gran % (Auto) 13 H (0-9) % Neut % (Auto) 80.7 (38-83) % Lymph % (Auto) 5.4 L (25-47) % [place] % (Auto) 13.7 H (1-9) % Eos % (Auto) 0 (0-6) % Baso % (Auto) 0.2 (0-2) % Absolute Neuts (auto) 10.6 H (1.5-7.7) 10^3/ul Absolute Lymphs (auto) 0.7 L (1.0-4.8) 10^3/ul Absolute Monos (auto) 1.8 H (0-0.8) 10^3/ul Absolute Eos (auto) 0 (0-0.6) 10^3/ul Absolute Basos (auto) 0 (0-0.2) 10^3/ul Absolute Nucleated RBC 0 10^3/ul Neutrophils % 64 (38-83) % Band Neutrophils % 13 H (0-8) % Lymphocytes % 8 L (25-47) % Reactive Lymphs % 2 (0-6) % Monocytes % 13 (0-13) % Nucleated RBC % 0 Normal RBC Morphology Not Reportable Polychromasia 1+ Hypochromasia 1+ Macrocytosis 1+ INR (Anticoag Therapy) 2.94 H (0.89-1.11) APTT 38.7 H (26.0-36.3) seconds Sodium 134 (133-145) mmol/L Potassium 3.2 L (3.5-5.0) mmol/L Chloride 99 L (101-111) mmol/L Carbon Dioxide 21 L (22-32) mmol/L Anion Gap 14 H (2-11) mmol/L BUN 29 H (6-24) mg/dL Creatinine 0.96 H (0.51-0.95) mg/dL Est GFR ( Amer) 70.9 (>60) Est GFR (Non-Af Amer) 55.1 (>60) BUN/Creatinine Ratio 30.2 H (8-20) Glucose 121 H (70-100) mg/dL Lactic Acid (0.5-2.0) mmol/L Calcium 7.5 L (8.6-10.3) mg/dL Total Bilirubin 1.60 H (0.2-1.0) mg/dL AST 28 (13-39) U/L ALT 16 (7-52) U/L Alkaline Phosphatase 90 (34-104) U/L Troponin I 0.03 (<0.04) ng/mL C-Reactive Protein 340.21 H (< 5.00) mg/L Total Protein 6.9 (6.4-8.9) g/dL Albumin 3.2 (3.2-5.2) g/dL Globulin 3.7 (2-4) g/dL Albumin/Globulin Ratio 0.9 L (1-3) Influenza A (Rapid) (Negative) Influenza B (Rapid) (Negative) 10/11/16 10/11/16 Range/Units 17:11 18:14 WBC (3.5-10.8) 10^3/ul RBC (4.0-5.4) 10^6/ul Hgb (12.0-16.0) g/dl Hct (35-47) % MCV (80-97) fL MCH (27-31) pg MCHC (31-36) g/dl RDW (10.5-15) % Plt Count (150-450) 10^3/ul MPV (7.4-10.4) um3 Immature Gran % (Auto) (0-9) % Neut % (Auto) (38-83) % Lymph % (Auto) (25-47) % [place] % (Auto) (1-9) % Eos % (Auto) (0-6) % Baso % (Auto) (0-2) % Absolute Neuts (auto) (1.5-7.7) 10^3/ul Absolute Lymphs (auto) (1.0-4.8) 10^3/ul Absolute Monos (auto) (0-0.8) 10^3/ul Absolute Eos (auto) (0-0.6) 10^3/ul Absolute Basos (auto) (0-0.2) 10^3/ul Absolute Nucleated RBC 10^3/ul Neutrophils % (38-83) % Band Neutrophils % (0-8) % Lymphocytes % (25-47) % Reactive Lymphs % (0-6) % Monocytes % (0-13) % Nucleated RBC % Normal RBC Morphology Polychromasia Hypochromasia Macrocytosis INR (Anticoag Therapy) (0.89-1.11) APTT (26.0-36.3) seconds Sodium (133-145) mmol/L Potassium (3.5-5.0) mmol/L Chloride (101-111) mmol/L Carbon Dioxide (22-32) mmol/L Anion Gap (2-11) mmol/L BUN (6-24) mg/dL Creatinine (0.51-0.95) mg/dL Est GFR ( Amer) (>60) Est GFR (Non-Af Amer) (>60) BUN/Creatinine Ratio (8-20) Glucose (70-100) mg/dL Lactic Acid 1.4 (0.5-2.0) mmol/L Calcium (8.6-10.3) mg/dL Total Bilirubin (0.2-1.0) mg/dL AST (13-39) U/L ALT (7-52) U/L Alkaline Phosphatase (34-104) U/L Troponin I (<0.04) ng/mL C-Reactive Protein (< 5.00) mg/L Total Protein (6.4-8.9) g/dL Albumin (3.2-5.2) g/dL Globulin (2-4) g/dL Albumin/Globulin Ratio (1-3) Influenza A (Rapid) Negative (Negative) Influenza B (Rapid) Negative (Negative) Microbiology and Other Data: Microbiology 10/12/16 17:00 Legionella Urinary Antigen - Final Urine Negative Legionella Streptococcus pneumoniae Ag Screen - Final Negative S. pneumo Antigen 10/11/16 20:19 Aerobic Blood Culture - Preliminary Blood Venous No Growth Day 1 Anaerobic Blood Culture - Preliminary No Growth Day 1 Assess/Plan/Problems-Billing Ms. 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 - Patient Problems (1) Severe sepsis Current Visit: Yes Status: Acute Code(s): A41.9 - SEPSIS, UNSPECIFIED ORGANISM; R65.20 - SEVERE SEPSIS WITHOUT SEPTIC SHOCK SNOMED Code(s): 19593250 Comment: The patient was septic on admission and had a SOFA score of 2 on admission (1 pt for MAP<70 and 1pt for elevated bilirubin). Her sepsis has resolved. (2) Acute hypoxemic respiratory failure Current Visit: Yes Status: Acute Code(s): J96.01 - ACUTE RESPIRATORY FAILURE WITH HYPOXIA SNOMED Code(s): 214366245 Comment: Secondary to bibasilar pneumonia. Hypoxic respiratory failure is improving. She is down to 8L and is being weaned further today. If she is able to be off O2 during the day she will need a nocturnal desaturation study prior to going home. If she continues to need supplemental O2 will need to monitor as outpatient. (3) Pneumonia Current Visit: Yes Status: Acute Code(s): J18.9 - PNEUMONIA, UNSPECIFIED ORGANISM SNOMED Code(s): 680535938 Comment: Pt continues to improve. WBC count has normalized. She has completed her course of Abx therapy. She will increase her walking. Wean O2 if able. Likely home in the next 1-2 days. (4) SWAPNIL (acute kidney injury) Current Visit: Yes Status: Acute Code(s): N17.9 - ACUTE KIDNEY FAILURE, UNSPECIFIED SNOMED Code(s): 19842738 Comment: Resolved. (5) DVT (deep venous thrombosis) Current Visit: Yes Status: Acute Code(s): I82.409 - ACUTE EMBOLISM AND THOMBOS UNSP DEEP VN UNSP LOWER EXTREMITY SNOMED Code(s): 630210830 Comment: Continue xarelto. (6) Hematuria Current Visit: Yes Status: Acute Code(s): R31.9 - HEMATURIA, UNSPECIFIED SNOMED Code(s): 81301298 Comment: Pt continues to have hematuria. Follow. (7) DVT prophylaxis Current Visit: Yes Status: Acute Code(s): ZOE6143 - SNOMED Code(s): 163559091 Comment: david (8) DNR (do not resuscitate) Current Visit: Yes Status: Acute Comment: DNR with trial intubation if necessary. Status and Disposition: .
[2016-10-19] MEDS: amLODIPine TAB* 5 MG PO SCH (12:16)
[2016-10-19] MEDS: Rivaroxaban TAB(*) 20 MG TAB PO SCH (16:25)
[2016-10-19] MEDS: cefTRIAXone VIAL(*) 1,000 MG in NS 0.9% 50 ML* 50 ML IVPB SCH (16:25)
[2016-10-20] MEDS: Benzocaine/Menthol LOZ* 1 LOZENGE MT PRN (01:49)
[2016-10-20] MEDS: Omeprazole CAP* 20 MG PO SCH (06:23)
[2016-10-20] MEDS: methylPREDNISolone SOD SUCC* 40 MG/ML VIAL IV SCH (08:09)
[2016-10-20] MEDS: Benzonatate CAP* 100 MG PO SCH ×3 (08:09→20:34)
[2016-10-20] MEDS: amLODIPine TAB* 5 MG PO SCH (08:09)
[2016-10-20] MEDS: guaiFENesin ER TAB 600 MG PO SCH ×2 (08:09→20:36)
--- NOTE | 2016-10-20 10:49 | PN ---
Subjective Date of Service: 10/20/16 Interval History: Pt is feeling ok. She states she felt dizzy while walking from the bathroom to the chair. She denies any SOB at this time. Objective Active Medications: Acetaminophen (Tylenol Tab*) 650 mg PO Q6H PRN PRN Reason: pain/fever Last Admin: 10/19/16 08:00 Dose: 650 mg Amlodipine Besylate (Norvasc Tab*) 5 mg PO DAILY COUNT [facility]CLUDES [facility] Last Admin: 10/20/16 08:09 Dose: 5 mg Benzonatate (Tessalon Cap*) 200 mg PO TID COUNT INCLUDES [facility] Last Admin: 10/20/16 08:09 Dose: 200 mg Calcium Carbonate (Tums*) 500 mg PO TID PRN PRN Reason: HEARTBURN Last Admin: 10/15/16 13:11 Dose: 500 mg Guaifenesin (Mucinex*) 1,200 mg PO BID COUNT INCLUDES [facility] Last Admin: 10/20/16 08:09 Dose: Not Given Morphine Sulfate (Morphine Inj (Syringe)*) 2 mg IV Q2H PRN PRN Reason: air hunger Last Admin: 10/15/16 14:19 Dose: 2 mg Omeprazole (Prilosec Cap*) 20 mg PO DAILY@0600 [facility] Last Admin: 10/20/16 06:23 Dose: 20 mg Oxycodone HCl (Roxycodone Tab*) 5 mg PO Q6H PRN PRN Reason: Severe cough/Severe pain Last Admin: 10/19/16 06:14 Dose: 5 mg Rivaroxaban (Xarelto (*)) 20 mg PO DAILY@1700 [facility] Last Admin: 10/19/16 16:25 Dose: 20 mg Throat Lozenges (Chloraseptic Kaykay*) 1 kaykay MT Q2H PRN PRN Reason: COUGH Last Admin: 10/20/16 01:49 Dose: 1 kaykay Vital Signs 10/19/16 10/19/16 10/19/16 12:11 15:29 18:23 Temperature 97.9 F Pulse Rate 72 72 Respiratory 16 20 Rate Blood Pressure 140/70 126/57 (mmHg) O2 Sat by Pulse 94 94 Oximetry 10/20/16 10/20/16 10/20/16 00:00 04:18 04:25 Temperature 97.9 F Pulse Rate 73 Respiratory 16 18 18 Rate Blood Pressure 147/69 (mmHg) O2 Sat by Pulse 98 Oximetry 10/20/16 10/20/16 07:44 08:00 Temperature 97.5 F Pulse Rate 70 Respiratory 14 16 Rate Blood Pressure 153/73 (mmHg) O2 Sat by Pulse 95 Oximetry Oxygen Devices in Use Now: Nasal Cannula - 95%-4L Appearance: Elderly female sitting in a chair, NAD Eyes: No Scleral Icterus Ears/Nose/Mouth/Throat: Mucous Membranes Moist Respiratory: Symmetrical Chest Expansion and Respiratory Effort, Clear to Auscultation - coarse breath sounds in all lung tellez Cardiovascular: NL Sounds; No Murmurs; No JVD, RRR, - - 1+ pitting edema of the L LE Abdominal: NL Sounds; No Tenderness; No Distention Extremities: No Clubbing, Cyanosis Skin: No Rash or Ulcers, No Nodules or Sclerosis Neurological: Alert and Oriented x 3 Result Diagrams: 10/19/16 06:06 10/19/16 06:06 Additional Lab and Data: Lab Results 10/11/16 10/11/16 10/11/16 Range/Units 17:11 17:11 17:11 WBC 13.1 H (3.5-10.8) 10^3/ul RBC 4.59 (4.0-5.4) 10^6/ul Hgb 13.7 (12.0-16.0) g/dl Hct 42 (35-47) % MCV 91 (80-97) fL MCH 30 (27-31) pg MCHC 33 (31-36) g/dl RDW 14 (10.5-15) % Plt Count 324 (150-450) 10^3/ul MPV 8 (7.4-10.4) um3 Immature Gran % (Auto) 13 H (0-9) % Neut % (Auto) 80.7 (38-83) % Lymph % (Auto) 5.4 L (25-47) % [place] % (Auto) 13.7 H (1-9) % Eos % (Auto) 0 (0-6) % Baso % (Auto) 0.2 (0-2) % Absolute Neuts (auto) 10.6 H (1.5-7.7) 10^3/ul Absolute Lymphs (auto) 0.7 L (1.0-4.8) 10^3/ul Absolute Monos (auto) 1.8 H (0-0.8) 10^3/ul Absolute Eos (auto) 0 (0-0.6) 10^3/ul Absolute Basos (auto) 0 (0-0.2) 10^3/ul Absolute Nucleated RBC 0 10^3/ul Neutrophils % 64 (38-83) % Band Neutrophils % 13 H (0-8) % Lymphocytes % 8 L (25-47) % Reactive Lymphs % 2 (0-6) % Monocytes % 13 (0-13) % Nucleated RBC % 0 Normal RBC Morphology Not Reportable Polychromasia 1+ Hypochromasia 1+ Macrocytosis 1+ INR (Anticoag Therapy) 2.94 H (0.89-1.11) APTT 38.7 H (26.0-36.3) seconds Sodium 134 (133-145) mmol/L Potassium 3.2 L (3.5-5.0) mmol/L Chloride 99 L (101-111) mmol/L Carbon Dioxide 21 L (22-32) mmol/L Anion Gap 14 H (2-11) mmol/L BUN 29 H (6-24) mg/dL Creatinine 0.96 H (0.51-0.95) mg/dL Est GFR ( Amer) 70.9 (>60) Est GFR (Non-Af Amer) 55.1 (>60) BUN/Creatinine Ratio 30.2 H (8-20) Glucose 121 H (70-100) mg/dL Lactic Acid (0.5-2.0) mmol/L Calcium 7.5 L (8.6-10.3) mg/dL Total Bilirubin 1.60 H (0.2-1.0) mg/dL AST 28 (13-39) U/L ALT 16 (7-52) U/L Alkaline Phosphatase 90 (34-104) U/L Troponin I 0.03 (<0.04) ng/mL C-Reactive Protein 340.21 H (< 5.00) mg/L Total Protein 6.9 (6.4-8.9) g/dL Albumin 3.2 (3.2-5.2) g/dL Globulin 3.7 (2-4) g/dL Albumin/Globulin Ratio 0.9 L (1-3) Influenza A (Rapid) (Negative) Influenza B (Rapid) (Negative) 10/11/16 10/11/16 Range/Units 17:11 18:14 WBC (3.5-10.8) 10^3/ul RBC (4.0-5.4) 10^6/ul Hgb (12.0-16.0) g/dl Hct (35-47) % MCV (80-97) fL MCH (27-31) pg MCHC (31-36) g/dl RDW (10.5-15) % Plt Count (150-450) 10^3/ul MPV (7.4-10.4) um3 Immature Gran % (Auto) (0-9) % Neut % (Auto) (38-83) % Lymph % (Auto) (25-47) % [place] % (Auto) (1-9) % Eos % (Auto) (0-6) % Baso % (Auto) (0-2) % Absolute Neuts (auto) (1.5-7.7) 10^3/ul Absolute Lymphs (auto) (1.0-4.8) 10^3/ul Absolute Monos (auto) (0-0.8) 10^3/ul Absolute Eos (auto) (0-0.6) 10^3/ul Absolute Basos (auto) (0-0.2) 10^3/ul Absolute Nucleated RBC 10^3/ul Neutrophils % (38-83) % Band Neutrophils % (0-8) % Lymphocytes % (25-47) % Reactive Lymphs % (0-6) % Monocytes % (0-13) % Nucleated RBC % Normal RBC Morphology Polychromasia Hypochromasia Macrocytosis INR (Anticoag Therapy) (0.89-1.11) APTT (26.0-36.3) seconds Sodium (133-145) mmol/L Potassium (3.5-5.0) mmol/L Chloride (101-111) mmol/L Carbon Dioxide (22-32) mmol/L Anion Gap (2-11) mmol/L BUN (6-24) mg/dL Creatinine (0.51-0.95) mg/dL Est GFR ( Amer) (>60) Est GFR (Non-Af Amer) (>60) BUN/Creatinine Ratio (8-20) Glucose (70-100) mg/dL Lactic Acid 1.4 (0.5-2.0) mmol/L Calcium (8.6-10.3) mg/dL Total Bilirubin (0.2-1.0) mg/dL AST (13-39) U/L ALT (7-52) U/L Alkaline Phosphatase (34-104) U/L Troponin I (<0.04) ng/mL C-Reactive Protein (< 5.00) mg/L Total Protein (6.4-8.9) g/dL Albumin (3.2-5.2) g/dL Globulin (2-4) g/dL Albumin/Globulin Ratio (1-3) Influenza A (Rapid) Negative (Negative) Influenza B (Rapid) Negative (Negative) Microbiology and Other Data: Microbiology 10/12/16 17:00 Legionella Urinary Antigen - Final Urine Negative Legionella Streptococcus pneumoniae Ag Screen - Final Negative S. pneumo Antigen 10/11/16 20:19 Aerobic Blood Culture - Preliminary Blood Venous No Growth Day 1 Anaerobic Blood Culture - Preliminary No Growth Day 1 Assess/Plan/Problems-Billing Ms. 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 - Patient Problems (1) Severe sepsis Current Visit: Yes Status: Acute Code(s): A41.9 - SEPSIS, UNSPECIFIED ORGANISM; R65.20 - SEVERE SEPSIS WITHOUT SEPTIC SHOCK SNOMED Code(s): 97217503 Comment: Resolved. (2) Acute hypoxemic respiratory failure Current Visit: Yes Status: Acute Code(s): J96.01 - ACUTE RESPIRATORY FAILURE WITH HYPOXIA SNOMED Code(s): 751397911 Comment: Improving. She can be weaned down further today. She may need to go home on supplemental O2. (3) Pneumonia Current Visit: Yes Status: Acute SNOMED Code(s): 575181463 Comment: Improving slowly. She is still bringing up some sputum. Most of the time it is clear but last night she had scant rust colored sputum. Possibly home tomorrow. (4) SWAPNIL (acute kidney injury) Current Visit: Yes Status: Acute Code(s): N17.9 - ACUTE KIDNEY FAILURE, UNSPECIFIED SNOMED Code(s): 61673384 Comment: Resolved. (5) DVT (deep venous thrombosis) Current Visit: Yes Status: Acute Code(s): I82.409 - ACUTE EMBOLISM AND THOMBOS UNSP DEEP VN UNSP LOWER EXTREMITY SNOMED Code(s): 126562732 Comment: Continue xarelto. (6) Hematuria Current Visit: Yes Status: Acute Code(s): R31.9 - HEMATURIA, UNSPECIFIED SNOMED Code(s): 30805436 Comment: Urine was a light pink last time. Continue to monitor. (7) DVT prophylaxis Current Visit: Yes Status: Acute Code(s): RXA0154 - SNOMED Code(s): 159538132 Comment: xarelto (8) DNR (do not resuscitate) Current Visit: Yes Status: Acute Comment: DNR with trial intubation if necessary. Status and Disposition: .
[2016-10-20] MEDS: Rivaroxaban TAB(*) 20 MG TAB PO SCH (16:33)
[2016-10-21] MEDS: Calcium Carbonate CHEW TAB* 500 MG (TUMS) PO PRN (01:45)
[2016-10-21] MEDS: Nitroglycerin TAB 0.4 MG* 0.4 MG TAB SL PRN ×2 (01:53→02:40)
[2016-10-21] MEDS ORDERED: Nitroglycerin TAB 0.4 MG* 0.4 MG TAB ONE (01:53)
[2016-10-21] MEDS: Morphine INJ* 2 MG/ML 1 ML SYRINGE IV PRN ×2 (02:32→04:52)
[2016-10-21] MEDS: Al Hydrox/Mg Hydrox/Simet LIQ* 30 ML UDC PO PRN ×4 (03:31→20:37)
[2016-10-21] MEDS: Omeprazole CAP* 20 MG PO SCH (05:35)
[2016-10-21 05:49] LABS: Hematocrit 41 % (35-47); Hemoglobin 13.5 g/dl (12.0-16.0); Mean Corpuscular HGB Conc 33 g/dl (31-36); Mean Corpuscular Hemoglobin 30 pg (27-31); Mean Corpuscular Volume 92 fL (80-97); Mean Platelet Volume 8 um3 (7.4-10.4); Red Blood Count 4.48 10^6/ul (4.0-5.4); Red Cell Distribution Width 14 % (10.5-15); White Blood Count 10.8 10^3/ul (3.5-10.8)
--- NOTE | 2016-10-21 07:13 | RAD ---
INDICATION: Chest pain and pneumonia. COMPARISON: Comparison is made with a prior chest x-ray study from October 15, 2016. TECHNIQUE: Dual-energy PA and lateral views of the chest were obtained. FINDINGS: The heart is within normal limits in size. There is a dual-chamber transvenous pacemaker present. There are small infiltrates at both lung bases which have significantly improved from the prior study. No pleural effusion is seen. There is flattening of the diaphragms suggestive of chronic obstructive pulmonary disease. IMPRESSION: SMALL BILATERAL INFILTRATES DEMONSTRATING SIGNIFICANT INTERVAL IMPROVEMENT.
[2016-10-21] MEDS: amLODIPine TAB* 5 MG PO SCH (08:30)
[2016-10-21] MEDS: Benzonatate CAP* 100 MG PO SCH ×3 (08:30→20:14)
[2016-10-21] MEDS: guaiFENesin ER TAB 600 MG PO SCH ×2 (08:34→20:15)
--- NOTE | 2016-10-21 09:59 | PN ---
Subjective Date of Service: 10/21/16 Interval History: Pt is feeling better currently. She states at about 2am she developed sharp chest pain. She felt as if she had food caught. The pain has now improved. She ambulated the length of the floor twice without difficulty yesterday. Objective Active Medications: Acetaminophen (Tylenol Tab*) 650 mg PO Q6H PRN PRN Reason: pain/fever Last Admin: 10/19/16 08:00 Dose: 650 mg Al Hydrox/Mg Hydrox/Simethicone (Maalox Plus*) 30 ml PO Q4H PRN PRN Reason: HEARTBURN Last Admin: 10/21/16 08:30 Dose: 30 ml Amlodipine Besylate (Norvasc Tab*) 5 mg PO DAILY [facility] Last Admin: 10/21/16 08:30 Dose: 5 mg Benzonatate (Tessalon Cap*) 200 mg PO TID [facility] Last Admin: 10/21/16 08:30 Dose: 200 mg Calcium Carbonate (Tums*) 500 mg PO TID PRN PRN Reason: HEARTBURN Last Admin: 10/21/16 01:45 Dose: 500 mg Guaifenesin (Mucinex*) 1,200 mg PO BID [facility] Last Admin: 10/21/16 08:34 Dose: Not Given Morphine Sulfate (Morphine Inj (Syringe)*) 2 mg IV Q2H PRN PRN Reason: air hunger Last Admin: 10/21/16 04:52 Dose: 2 mg Nitroglycerin (Nitroglycerin Tab 0.4 Mg*) 0.4 mg SL Q5M PRN PRN Reason: ANGINA Last Admin: 10/21/16 02:40 Dose: 0.4 mg Omeprazole (Prilosec Cap*) 20 mg PO DAILY@0600 [facility] Last Admin: 10/21/16 05:35 Dose: 20 mg Oxycodone HCl (Roxycodone Tab*) 5 mg PO Q6H PRN PRN Reason: Severe cough/Severe pain Last Admin: 10/19/16 06:14 Dose: 5 mg Rivaroxaban (Xarelto (*)) 20 mg PO DAILY@1700 [facility] Last Admin: 10/20/16 16:33 Dose: 20 mg Throat Lozenges (Chloraseptic Kaykay*) 1 kaykay MT Q2H PRN PRN Reason: COUGH Last Admin: 10/20/16 01:49 Dose: 1 kaykay Vital Signs 10/20/16 10/20/16 10/20/16 11:13 11:17 11:20 Temperature 98.0 F 98.1 F Pulse Rate 71 75 Respiratory 17 Rate Blood Pressure 131/48 121/56 (mmHg) O2 Sat by Pulse 95 95 93 Oximetry 10/20/16 10/20/16 10/20/16 11:29 11:49 15:25 Temperature 98.2 F Pulse Rate 86 77 Respiratory 18 Rate Blood Pressure 99/78 147/61 (mmHg) O2 Sat by Pulse 95 94 Oximetry 10/20/16 10/20/16 10/20/16 19:42 20:00 22:00 Temperature 98.5 F Pulse Rate 74 Respiratory 20 20 Rate Blood Pressure 145/61 (mmHg) O2 Sat by Pulse 96 94 Oximetry 10/20/16 10/21/16 10/21/16 23:18 01:43 02:32 Temperature 97.6 F Pulse Rate 79 79 85 Respiratory 18 18 22 Rate Blood Pressure 150/71 182/78 142/74 (mmHg) O2 Sat by Pulse 96 96 97 Oximetry 10/21/16 10/21/16 10/21/16 03:09 03:32 04:52 Temperature 97.9 F Pulse Rate 70 Respiratory 21 20 17 Rate Blood Pressure 123/61 (mmHg) O2 Sat by Pulse 96 Oximetry 10/21/16 10/21/16 10/21/16 05:38 05:52 07:34 Temperature 97.2 F Pulse Rate 70 Respiratory 18 18 Rate Blood Pressure 107/61 (mmHg) O2 Sat by Pulse 96 97 Oximetry 10/21/16 10/21/16 07:56 09:55 Temperature Pulse Rate Respiratory 18 Rate Blood Pressure (mmHg) O2 Sat by Pulse 95 Oximetry Oxygen Devices in Use Now: Nasal Cannula - 2L-97% Appearance: Elderly female sitting up in a chair, NAD Eyes: No Scleral Icterus Ears/Nose/Mouth/Throat: Mucous Membranes Moist Respiratory: Symmetrical Chest Expansion and Respiratory Effort, - - bibasilar crackles Cardiovascular: NL Sounds; No Murmurs; No JVD, RRR, - - trace R LE edema, 1+ L LE edema Abdominal: NL Sounds; No Tenderness; No Distention Extremities: No Clubbing, Cyanosis Skin: No Rash or Ulcers, No Nodules or Sclerosis Neurological: Alert and Oriented x 3 Result Diagrams: 10/21/16 05:24 10/19/16 06:06 Additional Lab and Data: Lab Results 10/11/16 10/11/16 10/11/16 Range/Units 17:11 17:11 17:11 WBC 13.1 H (3.5-10.8) 10^3/ul RBC 4.59 (4.0-5.4) 10^6/ul Hgb 13.7 (12.0-16.0) g/dl Hct 42 (35-47) % MCV 91 (80-97) fL MCH 30 (27-31) pg MCHC 33 (31-36) g/dl RDW 14 (10.5-15) % Plt Count 324 (150-450) 10^3/ul MPV 8 (7.4-10.4) um3 Immature Gran % (Auto) 13 H (0-9) % Neut % (Auto) 80.7 (38-83) % Lymph % (Auto) 5.4 L (25-47) % [place] % (Auto) 13.7 H (1-9) % Eos % (Auto) 0 (0-6) % Baso % (Auto) 0.2 (0-2) % Absolute Neuts (auto) 10.6 H (1.5-7.7) 10^3/ul Absolute Lymphs (auto) 0.7 L (1.0-4.8) 10^3/ul Absolute Monos (auto) 1.8 H (0-0.8) 10^3/ul Absolute Eos (auto) 0 (0-0.6) 10^3/ul Absolute Basos (auto) 0 (0-0.2) 10^3/ul Absolute Nucleated RBC 0 10^3/ul Neutrophils % 64 (38-83) % Band Neutrophils % 13 H (0-8) % Lymphocytes % 8 L (25-47) % Reactive Lymphs % 2 (0-6) % Monocytes % 13 (0-13) % Nucleated RBC % 0 Normal RBC Morphology Not Reportable Polychromasia 1+ Hypochromasia 1+ Macrocytosis 1+ INR (Anticoag Therapy) 2.94 H (0.89-1.11) APTT 38.7 H (26.0-36.3) seconds Sodium 134 (133-145) mmol/L Potassium 3.2 L (3.5-5.0) mmol/L Chloride 99 L (101-111) mmol/L Carbon Dioxide 21 L (22-32) mmol/L Anion Gap 14 H (2-11) mmol/L BUN 29 H (6-24) mg/dL Creatinine 0.96 H (0.51-0.95) mg/dL Est GFR ( Amer) 70.9 (>60) Est GFR (Non-Af Amer) 55.1 (>60) BUN/Creatinine Ratio 30.2 H (8-20) Glucose 121 H (70-100) mg/dL Lactic Acid (0.5-2.0) mmol/L Calcium 7.5 L (8.6-10.3) mg/dL Total Bilirubin 1.60 H (0.2-1.0) mg/dL AST 28 (13-39) U/L ALT 16 (7-52) U/L Alkaline Phosphatase 90 (34-104) U/L Troponin I 0.03 (<0.04) ng/mL C-Reactive Protein 340.21 H (< 5.00) mg/L Total Protein 6.9 (6.4-8.9) g/dL Albumin 3.2 (3.2-5.2) g/dL Globulin 3.7 (2-4) g/dL Albumin/Globulin Ratio 0.9 L (1-3) Influenza A (Rapid) (Negative) Influenza B (Rapid) (Negative) 10/11/16 10/11/16 Range/Units 17:11 18:14 WBC (3.5-10.8) 10^3/ul RBC (4.0-5.4) 10^6/ul Hgb (12.0-16.0) g/dl Hct (35-47) % MCV (80-97) fL MCH (27-31) pg MCHC (31-36) g/dl RDW (10.5-15) % Plt Count (150-450) 10^3/ul MPV (7.4-10.4) um3 Immature Gran % (Auto) (0-9) % Neut % (Auto) (38-83) % Lymph % (Auto) (25-47) % [place] % (Auto) (1-9) % Eos % (Auto) (0-6) % Baso % (Auto) (0-2) % Absolute Neuts (auto) (1.5-7.7) 10^3/ul Absolute Lymphs (auto) (1.0-4.8) 10^3/ul Absolute Monos (auto) (0-0.8) 10^3/ul Absolute Eos (auto) (0-0.6) 10^3/ul Absolute Basos (auto) (0-0.2) 10^3/ul Absolute Nucleated RBC 10^3/ul Neutrophils % (38-83) % Band Neutrophils % (0-8) % Lymphocytes % (25-47) % Reactive Lymphs % (0-6) % Monocytes % (0-13) % Nucleated RBC % Normal RBC Morphology Polychromasia Hypochromasia Macrocytosis INR (Anticoag Therapy) (0.89-1.11) APTT (26.0-36.3) seconds Sodium (133-145) mmol/L Potassium (3.5-5.0) mmol/L Chloride (101-111) mmol/L Carbon Dioxide (22-32) mmol/L Anion Gap (2-11) mmol/L BUN (6-24) mg/dL Creatinine (0.51-0.95) mg/dL Est GFR ( Amer) (>60) Est GFR (Non-Af Amer) (>60) BUN/Creatinine Ratio (8-20) Glucose (70-100) mg/dL Lactic Acid 1.4 (0.5-2.0) mmol/L Calcium (8.6-10.3) mg/dL Total Bilirubin (0.2-1.0) mg/dL AST (13-39) U/L ALT (7-52) U/L Alkaline Phosphatase (34-104) U/L Troponin I (<0.04) ng/mL C-Reactive Protein (< 5.00) mg/L Total Protein (6.4-8.9) g/dL Albumin (3.2-5.2) g/dL Globulin (2-4) g/dL Albumin/Globulin Ratio (1-3) Influenza A (Rapid) Negative (Negative) Influenza B (Rapid) Negative (Negative) Microbiology and Other Data: Microbiology 10/12/16 17:00 Legionella Urinary Antigen - Final Urine Negative Legionella Streptococcus pneumoniae Ag Screen - Final Negative S. pneumo Antigen 10/11/16 20:19 Aerobic Blood Culture - Preliminary Blood Venous No Growth Day 1 Anaerobic Blood Culture - Preliminary No Growth Day 1 Assess/Plan/Problems-Billing Ms. 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 - Patient Problems (1) Severe sepsis Current Visit: Yes Status: Acute Code(s): A41.9 - SEPSIS, UNSPECIFIED ORGANISM; R65.20 - SEVERE SEPSIS WITHOUT SEPTIC SHOCK SNOMED Code(s): 30826069 Comment: Resolved. (2) Acute hypoxemic respiratory failure Current Visit: Yes Status: Acute Code(s): J96.01 - ACUTE RESPIRATORY FAILURE WITH HYPOXIA SNOMED Code(s): 222980017 Comment: Try to take off O2 today. She is saturating well on 2L. She may need O2 while walking however. (3) Pneumonia Current Visit: Yes Status: Acute SNOMED Code(s): 512717950 Comment: Improving slowly. She has completed her Abx therapy. Plan for d/c tomorrow. (4) SWAPNIL (acute kidney injury) Current Visit: Yes Status: Acute Code(s): N17.9 - ACUTE KIDNEY FAILURE, UNSPECIFIED SNOMED Code(s): 38619163 Comment: Resolved. (5) DVT (deep venous thrombosis) Current Visit: Yes Status: Acute Code(s): I82.409 - ACUTE EMBOLISM AND THOMBOS UNSP DEEP VN UNSP LOWER EXTREMITY SNOMED Code(s): 938449102 Comment: Continue xarelto. (6) Hematuria Current Visit: Yes Status: Acute Code(s): R31.9 - HEMATURIA, UNSPECIFIED SNOMED Code(s): 15425507 Comment: Continue to monitor. (7) DVT prophylaxis Current Visit: Yes Status: Acute Code(s): APY2155 - SNOMED Code(s): 621434468 Comment: xarelto (8) DNR (do not resuscitate) Current Visit: Yes Status: Acute Comment: DNR with trial intubation if necessary. Status and Disposition: .
--- NOTE | 2016-10-21 13:10 | PN ---
Progress Note - Progress Note Note: Pulm consult f/u note 10/21/16. Pt seen and examined at bedside. No new complaints other than feeling tired. Daughter at bedside. Active Medications Generic Name Dose Route Start Last Admin Trade Name Freq PRN Reason Stop Dose Admin Acetaminophen 650 mg 10/11/16 19:00 10/19/16 08:00 Tylenol Tab* PO 650 mg Q6H PRN Administration pain/fever Al Hydrox/Mg Hydrox/Simethicone 30 ml 10/21/16 03:12 10/21/16 08:30 Maalox Plus* PO 30 ml Q4H PRN Administration HEARTBURN Amlodipine Besylate 5 mg 10/19/16 11:00 10/21/16 08:30 Norvasc Tab* PO 5 mg DAILY [facility] Administration Benzonatate 200 mg 10/12/16 14:00 10/21/16 08:30 Tessalon Cap* PO 200 mg TID [facility] Administration Calcium Carbonate 500 mg 10/14/16 18:23 10/21/16 01:45 Tums* PO 500 mg TID PRN Administration HEARTBURN Guaifenesin 1,200 mg 10/16/16 02:00 10/21/16 08:34 Mucinex* PO Not Given BID [facility] Morphine Sulfate 2 mg 10/12/16 02:28 10/21/16 04:52 Morphine Inj (Syringe)* IV 2 mg Q2H PRN Administration air hunger Nitroglycerin 0.4 mg 10/21/16 01:50 10/21/16 02:40 Nitroglycerin Tab 0.4 Mg* SL 0.4 mg Q5M PRN Administration ANGINA Omeprazole 20 mg 10/12/16 06:00 10/21/16 05:35 Prilosec Cap* PO 20 mg DAILY@0600 [facility] Administration Oxycodone HCl 5 mg 10/12/16 12:11 10/19/16 06:14 Roxycodone Tab* PO 5 mg Q6H PRN Administration Severe cough/Severe pain Rivaroxaban 20 mg 10/12/16 17:00 10/20/16 16:33 Xarelto (*) PO 20 mg DAILY@1700 [facility] Administration Throat Lozenges 1 kaykay 10/15/16 23:52 10/20/16 01:49 Chloraseptic Kaykay* MT 1 kaykay Q2H PRN Administration COUGH Vital Signs Temp Pulse Resp BP Pulse Ox 97.2 F 70 18 107/61 95 10/21/16 07:34 10/21/16 07:34 10/21/16 07:56 10/21/16 07:34 10/21/16 09:55 Gen:awake, not in distress HEENT: PERRLA, NO JVD Neuro:Ox3, answers all questions, no focal defects Neck:supple Heart: RRR no murmur Lungs: decreased BS at bases, no wheeze or rales Abd:+BS NTND soft Skin: no rash MSK: no spine tenderness Laboratory Results - last 24 hr 10/21/16 10/21/16 05:24 05:24 WBC 10.8 RBC 4.48 Hgb 13.5 Hct 41 MCV 92 MCH 30 MCHC 33 RDW 14 Plt Count 376 MPV 8 Neut % (Auto) 70.5 Lymph % (Auto) 18.5 L [place] % (Auto) 10.2 H Eos % (Auto) 0.5 Baso % (Auto) 0.3 Absolute Neuts (auto) 7.6 Absolute Lymphs (auto) 2.0 Absolute Monos (auto) 1.1 H Absolute Eos (auto) 0.1 Absolute Basos (auto) 0 Absolute Nucleated RBC 0.01 Nucleated RBC % 0.1 Troponin I 0.01 Impression/Recommendations: 1. Acute hypoxemic respiratory failure, improved signficantly, on RA 2. Multifocal pneumonia, community acquired, improving Completed abx Pt on RA currently Has not ambulated much Reassess O2 needs with exertion Cough is improved CRP is coming down PT, OOB to chair as tolerated For d/c tomorrow
[2016-10-21] MEDS: Rivaroxaban TAB(*) 20 MG TAB PO SCH (17:53)
[2016-10-22] MEDS: Al Hydrox/Mg Hydrox/Simet LIQ* 30 ML UDC PO PRN (03:54)
[2016-10-22] MEDS: Omeprazole CAP* 20 MG PO SCH (05:37)
[2016-10-22 09:23] VITALS: BP 123/54
[2016-10-22] MEDS: amLODIPine TAB* 5 MG PO SCH (10:13)
[2016-10-22] MEDS: Benzonatate CAP* 100 MG PO SCH (10:13)
[2016-10-22] MEDS: guaiFENesin ER TAB 600 MG PO SCH (11:11)
--- NOTE | 2016-10-22 11:43 | PN ---
Subjective Date of Service: 10/22/16 Interval History: Pt is feeling ok. She is ready to go to rehab. Objective Active Medications: Acetaminophen (Tylenol Tab*) 650 mg PO Q6H PRN PRN Reason: pain/fever Last Admin: 10/19/16 08:00 Dose: 650 mg Al Hydrox/Mg Hydrox/Simethicone (Maalox Plus*) 30 ml PO Q4H PRN PRN Reason: HEARTBURN Last Admin: 10/22/16 03:54 Dose: 30 ml Amlodipine Besylate (Norvasc Tab*) 5 mg PO DAILY [facility] Last Admin: 10/22/16 10:13 Dose: 5 mg Benzonatate (Tessalon Cap*) 200 mg PO TID [facility] Last Admin: 10/22/16 10:13 Dose: 200 mg Calcium Carbonate (Tums*) 500 mg PO TID PRN PRN Reason: HEARTBURN Last Admin: 10/21/16 01:45 Dose: 500 mg Guaifenesin (Mucinex*) 1,200 mg PO BID [facility] Last Admin: 10/22/16 11:11 Dose: Not Given Morphine Sulfate (Morphine Inj (Syringe)*) 2 mg IV Q2H PRN PRN Reason: air hunger Last Admin: 10/21/16 04:52 Dose: 2 mg Nitroglycerin (Nitroglycerin Tab 0.4 Mg*) 0.4 mg SL Q5M PRN PRN Reason: ANGINA Last Admin: 10/21/16 02:40 Dose: 0.4 mg Omeprazole (Prilosec Cap*) 20 mg PO DAILY@0600 [facility] Last Admin: 10/22/16 05:37 Dose: 20 mg Oxycodone HCl (Roxycodone Tab*) 5 mg PO Q6H PRN PRN Reason: Severe cough/Severe pain Last Admin: 10/19/16 06:14 Dose: 5 mg Rivaroxaban (Xarelto (*)) 20 mg PO DAILY@1700 [facility] Last Admin: 10/21/16 17:53 Dose: 20 mg Throat Lozenges (Chloraseptic Kaykay*) 1 kaykay MT Q2H PRN PRN Reason: COUGH Last Admin: 10/20/16 01:49 Dose: 1 kaykay Vital Signs 10/21/16 10/21/16 10/21/16 15:21 20:00 23:20 Temperature 97.5 F 97.7 F Pulse Rate 71 72 Respiratory 16 17 18 Rate Blood Pressure 136/52 125/58 (mmHg) O2 Sat by Pulse 97 92 Oximetry 10/22/16 10/22/16 07:52 10:06 Temperature 97.6 F Pulse Rate 76 Respiratory 20 Rate Blood Pressure 123/54 (mmHg) O2 Sat by Pulse 95 93 Oximetry Oxygen Devices in Use Now: Nasal Cannula - 1L Appearance: Elderly female sitting in a chair, NAD Eyes: No Scleral Icterus Ears/Nose/Mouth/Throat: Mucous Membranes Moist Respiratory: Symmetrical Chest Expansion and Respiratory Effort, - - RLL crackles Cardiovascular: NL Sounds; No Murmurs; No JVD, RRR, - - 1+ edema B/L LE Abdominal: NL Sounds; No Tenderness; No Distention Extremities: No Clubbing, Cyanosis Skin: No Rash or Ulcers, No Nodules or Sclerosis Neurological: Alert and Oriented x 3 Result Diagrams: 10/21/16 05:24 10/19/16 06:06 Additional Lab and Data: Lab Results 10/11/16 10/11/16 10/11/16 Range/Units 17:11 17:11 17:11 WBC 13.1 H (3.5-10.8) 10^3/ul RBC 4.59 (4.0-5.4) 10^6/ul Hgb 13.7 (12.0-16.0) g/dl Hct 42 (35-47) % MCV 91 (80-97) fL MCH 30 (27-31) pg MCHC 33 (31-36) g/dl RDW 14 (10.5-15) % Plt Count 324 (150-450) 10^3/ul MPV 8 (7.4-10.4) um3 Immature Gran % (Auto) 13 H (0-9) % Neut % (Auto) 80.7 (38-83) % Lymph % (Auto) 5.4 L (25-47) % Jasper % (Auto) 13.7 H (1-9) % Eos % (Auto) 0 (0-6) % Baso % (Auto) 0.2 (0-2) % Absolute Neuts (auto) 10.6 H (1.5-7.7) 10^3/ul Absolute Lymphs (auto) 0.7 L (1.0-4.8) 10^3/ul Absolute Monos (auto) 1.8 H (0-0.8) 10^3/ul Absolute Eos (auto) 0 (0-0.6) 10^3/ul Absolute Basos (auto) 0 (0-0.2) 10^3/ul Absolute Nucleated RBC 0 10^3/ul Neutrophils % 64 (38-83) % Band Neutrophils % 13 H (0-8) % Lymphocytes % 8 L (25-47) % Reactive Lymphs % 2 (0-6) % Monocytes % 13 (0-13) % Nucleated RBC % 0 Normal RBC Morphology Not Reportable Polychromasia 1+ Hypochromasia 1+ Macrocytosis 1+ INR (Anticoag Therapy) 2.94 H (0.89-1.11) APTT 38.7 H (26.0-36.3) seconds Sodium 134 (133-145) mmol/L Potassium 3.2 L (3.5-5.0) mmol/L Chloride 99 L (101-111) mmol/L Carbon Dioxide 21 L (22-32) mmol/L Anion Gap 14 H (2-11) mmol/L BUN 29 H (6-24) mg/dL Creatinine 0.96 H (0.51-0.95) mg/dL Est GFR ( Amer) 70.9 (>60) Est GFR (Non-Af Amer) 55.1 (>60) BUN/Creatinine Ratio 30.2 H (8-20) Glucose 121 H (70-100) mg/dL Lactic Acid (0.5-2.0) mmol/L Calcium 7.5 L (8.6-10.3) mg/dL Total Bilirubin 1.60 H (0.2-1.0) mg/dL AST 28 (13-39) U/L ALT 16 (7-52) U/L Alkaline Phosphatase 90 (34-104) U/L Troponin I 0.03 (<0.04) ng/mL C-Reactive Protein 340.21 H (< 5.00) mg/L Total Protein 6.9 (6.4-8.9) g/dL Albumin 3.2 (3.2-5.2) g/dL Globulin 3.7 (2-4) g/dL Albumin/Globulin Ratio 0.9 L (1-3) Influenza A (Rapid) (Negative) Influenza B (Rapid) (Negative) 10/11/16 10/11/16 Range/Units 17:11 18:14 WBC (3.5-10.8) 10^3/ul RBC (4.0-5.4) 10^6/ul Hgb (12.0-16.0) g/dl Hct (35-47) % MCV (80-97) fL MCH (27-31) pg MCHC (31-36) g/dl RDW (10.5-15) % Plt Count (150-450) 10^3/ul MPV (7.4-10.4) um3 Immature Gran % (Auto) (0-9) % Neut % (Auto) (38-83) % Lymph % (Auto) (25-47) % Jasper % (Auto) (1-9) % Eos % (Auto) (0-6) % Baso % (Auto) (0-2) % Absolute Neuts (auto) (1.5-7.7) 10^3/ul Absolute Lymphs (auto) (1.0-4.8) 10^3/ul Absolute Monos (auto) (0-0.8) 10^3/ul Absolute Eos (auto) (0-0.6) 10^3/ul Absolute Basos (auto) (0-0.2) 10^3/ul Absolute Nucleated RBC 10^3/ul Neutrophils % (38-83) % Band Neutrophils % (0-8) % Lymphocytes % (25-47) % Reactive Lymphs % (0-6) % Monocytes % (0-13) % Nucleated RBC % Normal RBC Morphology Polychromasia Hypochromasia Macrocytosis INR (Anticoag Therapy) (0.89-1.11) APTT (26.0-36.3) seconds Sodium (133-145) mmol/L Potassium (3.5-5.0) mmol/L Chloride (101-111) mmol/L Carbon Dioxide (22-32) mmol/L Anion Gap (2-11) mmol/L BUN (6-24) mg/dL Creatinine (0.51-0.95) mg/dL Est GFR ( Amer) (>60) Est GFR (Non-Af Amer) (>60) BUN/Creatinine Ratio (8-20) Glucose (70-100) mg/dL Lactic Acid 1.4 (0.5-2.0) mmol/L Calcium (8.6-10.3) mg/dL Total Bilirubin (0.2-1.0) mg/dL AST (13-39) U/L ALT (7-52) U/L Alkaline Phosphatase (34-104) U/L Troponin I (<0.04) ng/mL C-Reactive Protein (< 5.00) mg/L Total Protein (6.4-8.9) g/dL Albumin (3.2-5.2) g/dL Globulin (2-4) g/dL Albumin/Globulin Ratio (1-3) Influenza A (Rapid) Negative (Negative) Influenza B (Rapid) Negative (Negative) Microbiology and Other Data: Microbiology 10/12/16 17:00 Legionella Urinary Antigen - Final Urine Negative Legionella Streptococcus pneumoniae Ag Screen - Final Negative S. pneumo Antigen 10/11/16 20:19 Aerobic Blood Culture - Preliminary Blood Venous No Growth Day 1 Anaerobic Blood Culture - Preliminary No Growth Day 1 Assess/Plan/Problems-Billing Ms. 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 - Patient Problems (1) Severe sepsis Current Visit: Yes Status: Acute Code(s): A41.9 - SEPSIS, UNSPECIFIED ORGANISM; R65.20 - SEVERE SEPSIS WITHOUT SEPTIC SHOCK SNOMED Code(s): 01636630 Comment: Resolved. (2) Acute hypoxemic respiratory failure Current Visit: Yes Status: Acute Code(s): J96.01 - ACUTE RESPIRATORY FAILURE WITH HYPOXIA SNOMED Code(s): 672718164 Comment: Resolved. (3) Pneumonia Current Visit: Yes Status: Acute SNOMED Code(s): 360307808 Comment: Improving slowly. She has completed her Abx therapy. Plan for d/c today to [facility] for rehab. (4) SWAPNIL (acute kidney injury) Current Visit: Yes Status: Acute Code(s): N17.9 - ACUTE KIDNEY FAILURE, UNSPECIFIED SNOMED Code(s): 10237056 Comment: Resolved. (5) DVT (deep venous thrombosis) Current Visit: Yes Status: Acute Code(s): I82.409 - ACUTE EMBOLISM AND THOMBOS UNSP DEEP VN UNSP LOWER EXTREMITY SNOMED Code(s): 002042037 Comment: Continue xarelto. (6) Hematuria Current Visit: Yes Status: Acute Code(s): R31.9 - HEMATURIA, UNSPECIFIED SNOMED Code(s): 06326364 Comment: Continue to monitor. (7) DVT prophylaxis Current Visit: Yes Status: Acute Code(s): ODB4232 - SNOMED Code(s): 070480952 Comment: xarelto (8) DNR (do not resuscitate) Current Visit: Yes Status: Acute Comment: DNR with trial intubation if necessary. Status and Disposition: d/c to [facility]
--- NOTE | 2016-10-22 12:43 | DS ---
DATE OF ADMISSION: 10/11/2016. DATE OF DISCHARGE: 10/22/2016. PRIMARY CARE PROVIDER: Dr. Isaac. PRINCIPAL DIAGNOSIS: Acute hypoxic respiratory failure and sepsis secondary to multifocal community acquired pneumonia. SECONDARY DIAGNOSES: 1. Hypertension. 2. GERD. 3. Recent diagnosis of left lower extremity DVT, currently on Xarelto. 4. Asthma. DISCHARGE MEDICATIONS: 1. Xarelto 20 mg p.o. daily. 2. Multivitamin - pediatric gummy two chews p.o. daily. 3. Oxybutynin XL 5 mg p.o. daily. 4. Guaifenesin plus codeine 10 ml p.o. q.4 hours prn cough. 5. Carafate 5 ml p.o. at bedtime. 6. Nexium 40 mg p.o. b.i.d. 7. Citracal calcium gummy two chews p.o. daily. 8. Tylenol 650 mg p.o. q.6 hours prn pain. 9. Oxycodone 5 mg p.o. q.6 hours prn pain. 10. Amlodipine 5 mg p.o. daily. 11. Tessalon 200 mg p.o. t.i.d. prn cough. HOSPITAL COURSE: Ms. Tello is an 86-year-old female who presented to the emergency room on 10/11/2016 with complaints of cough, headache, and shortness of breath. The patient presented to the hospital from Dr. Isaac's office. She had been feeling unwell for approximately one week and went to her office for evaluation. She was noted to have a fever of 102.7 and an O2 saturation in the low 80s on room air. Chest x-ray in the office showed an infiltrate on the right side. [place] patient was [place] [facility] and management. The patient was ultimately admitted for acute hypoxic respiratory failure with associated sepsis secondary to multifocal pneumonia. The patient was admitted to the Intensive Care Unit. The patient required Vapotherm for several days post admission. She was seen in consultation by Dr. Engel and Dr. Clark. The consultation with Dr. Engel recommended continuing Ceftriaxone 1 gm daily and Azithromycin 500 mg daily, as well as empiric steroid coverage. It was also recommended to continue to follow her O2 saturation, CRP, and obtain a procalcitonin level. The procalcitonin was elevated on admission at 1.6. This has subsequently trended down. Her CRP was also markedly elevated at 340.21 and has trended down to 73.41 on 10/17/2016. Dr. Clark recommended at the time of her consultation to continue with nebulizers and steroids. No further recommendations were made at that time. It took several days for the patient to be liberated from the Vapotherm. She did complete a total of nine days of antibiotic therapy. The patient's chest x- ray on 10/21/2016 revealed small bilateral infiltrates demonstrating significant interval improvement. The patient is down to one liter of oxygen prior to discharge. She has been up and ambulating; however, she still feels very weak which is not surprising given her advanced age and how long she remained lying in bed while acutely ill. The patient requested subacute rehab stay and has been given a bed offer for [facility]. The patient is accepting the bed at [facility] today, 10/22/2016. FOLLOW-UP CONCERNS: The patient is being discharged to [facility] today, 10/22/2016. ACTIVITY LEVEL: As tolerated. DIET: Regular. CONDITION ON DISCHARGE: Stable. Thirty-five minutes were spent discharging this patient. Please see the complete medical record for further details of this very prolonged and complicated hospitalization. CC: Dr. Isaac* [id number]/[facility] #: [id number] JAIRO
== END 2016-10-22 14:40 | disposition home health service (06) | DRG 871 ==
LOC: ED 16:40 → ICU 18:37 → MED 10-18 14:30
PROVIDERS: ADMIT Hospitalist; ATTEND Hospitalist
DX: A41.9 Sepsis, unspecified organism (principal); J96.01 Acute respiratory failure with hypoxia; J18.9 Pneumonia, unspecified organism; N17.9 Acute kidney failure, unspecified; J98.11 Atelectasis; R65.20 Severe sepsis without septic shock; I10 Essential (primary) hypertension; K21.9 Gastro-esophageal reflux disease without esophagitis; J45.909 Unspecified asthma, uncomplicated; Z86.718 Personal history of other venous thrombosis and embolism; Z79.01 Long term (current) use of anticoagulants; Z88.6 Allergy status to analgesic agent; Z95.0 Presence of cardiac pacemaker; Z86.73 Personal history of transient ischemic attack (TIA), and cerebral infarction without residual deficits; Z82.49 Family history of ischemic heart disease and other diseases of the circulatory system; I35.0 Nonrheumatic aortic (valve) stenosis; Z66 Do not resuscitate; E83.51 Hypocalcemia; R79.82 Elevated C-reactive protein (CRP); E83.42 Hypomagnesemia; R31.0 Gross hematuria; K44.9 Diaphragmatic hernia without obstruction or gangrene; Z85.3 Personal history of malignant neoplasm of breast
CPT/HCPCS: 36415; 71010; 71020; 71275; 80048; 80053; 81003; 81015; 82040; 82330; 83605; 83735; 83880; 83970; 84145; 84484; 85025; 85027; 85610; 85730; 86140; 87040; 87502; 87641; 87899; 93005; 93306; 94640; 94760; A9270-GY; J0456; J0610; J0696; J1200; J1940; J2270; J2920; J2930; J3480; Q9967

== ENCOUNTER 2018-08-21 17:32 | Emergency (ER) | payer MEDICARE, OTHER ==
--- NOTE | 2018-08-21 17:56 | UC ---
Respiratory Complaint HPI - HPI Summary HPI Summary: 88 yo female presents with cough and chest congestion for the last week. She tells me that about 2 years ago she had PNA and was hospitalized. Since that time she keeps a closer eye on her "colds" and "coughs". Today she seemed to be more congested in her chest and has a pain in her right lung with coughing and deep breathing. She has also felt a little more tired recently. Denies fever, chills, SOB, cardiac chest pain. - History of Current Complaint Chief Complaint: UCRespiratory Stated Complaint: URI Time Seen by Provider: 08/21/18 17:55 Hx Obtained From: Patient Hx Last Menstrual Period: post Onset/Duration: Gradual Onset Severity Initially: Mild Severity Currently: Moderate Pain Intensity: 7 Pain Scale Used: 0-10 Numeric Character: Cough: Productive - Allergies/Home Medications Allergies/Adverse Reactions: Allergies Allergy/AdvReac Type Severity Reaction Status Date / Time codeine Allergy Unknown Verified 08/21/18 17:45 Reaction Details Home Medications: Home Medications Losartan Potassium 12.5 mg PO DAILY 08/21/18 [History Confirmed 08/21/18] Rivaroxaban TAB(*) [Xarelto 20 mg] 20 mg PO DAILY 08/21/18 [History Confirmed ] PMH/Surg Hx/FS Hx/Imm Hx - Additional Past Medical History Additional PMH: Urinary incontinence Cardiovascular History: Cardiac Disease, Hypertension, Pacemaker/ICD, Deep Vein Thrombosis GI/ History: Gastroesophageal Reflux Other History Of: Anticoagulant Therapy - xarelto d/t dvt - Surgical History Surgical History: Yes Surgery Procedure, Year, and Place: pacemaker implant. Cholecystectomy. parathyriodectomy - Family History Family History: Medical records reviewed and indicative for FHx of longevity in her mother. Father in his 30's secondary to MVA - Social History Occupation: Retired Alcohol Use: None Substance Use Type: None Smoking Status (MU): Never Smoked Tobacco - Immunization History Most Recent Influenza Vaccination: 2017 Most Recent Tetanus Shot: up to date Most Recent Pneumonia Vaccination: 2017 Review of Systems All Other Systems Reviewed And Are Negative: Yes Constitutional: Positive: Negative Skin: Positive: Negative Eyes: Positive: Negative ENT: Positive: Negative Respiratory: Positive: Cough Cardiovascular: Positive: Negative Gastrointestinal: Positive: Negative Neurological: Positive: Negative Psychological: Positive: Negative Physical Exam - Summary Physical Exam Summary: GENERAL: NAD. WDWN. No pain distress. SKIN: No rashes, sores, lesions, or open wounds. HEENT: Head: AT/NC Eyes: Conjunctiva clear without inflammation or discharge. Ears: Hearing grossly normal. TMs intact, no bulging, erythema, or edema. Nose: Nasal mucosa pink and moist. NTTP maxillary and frontal sinus. Throat: Posterior oropharynx without exudates, erythema, or tonsillar enlargement. Uvula midline. NECK: Supple. Nontender. No lymphadenopathy. CHEST: Decreased breath sounds bibasilar. No r/r. No accessory muscle use. Breathing comfortably and in no distress. CV: Pulses intact. Cap refill <2seconds NEURO: Alert. PSYCH: Age appropriate behavior. Triage Information Reviewed: Yes Vital Signs: Initial Vital Signs Temp 98.9 F 08/21/18 17:48 Pulse 73 08/21/18 17:48 Resp 20 08/21/18 17:48 Pulse Ox 95 08/21/18 17:48 Vital Signs Reviewed: Yes Diagnostic Evaluation - Laboratory O2 Sat by Pulse Oximetry: 95 Respiratory Course/Dx - Course Course Of Treatment: CXR: No radiologist reading after 1800, therefore wet read by myself is ?RLL PNA. Duoneb: Mild improvement of being able to take a deep breath. Will rx for Augmentin. She has a f/u with her PCP on 08/28 and I advised her it is improtant to keep this appt for a recheck. If her symptoms worsen or if she develops new symptoms before that time - be rechecked. - Differential Dx/Diagnosis Provider Diagnosis: RLL pneumonia Discharge - Sign-Out/Discharge Documenting (check all that apply): Patient Departure All imaging exams completed and their final reports reviewed: No - Discharge Plan Condition: Stable Disposition: HOME Prescriptions: Amoxicillin/Clavulanate TAB* [Augmentin TAB 875*] 875 mg PO BID #20 tab Patient Education Materials: Pneumonia (ED) Referrals: Keena Isaac MD [Primary Care Provider] - Additional Instructions: If you develop a fever, shortness of breath, chest pain, new or worsening symptoms - please call your PCP or go to the ED. Take your antibiotics. Rest. It is important that you keep your follow up with your Primary Doctor on for a recheck of your symptoms. If you feel worse before that time, please come back to the Urgent Care. - Billing Disposition and Condition Condition: STABLE Disposition: Home
[2018-08-21] MEDS ORDERED: Albuterol/Ipratropium NEB.SOL* Albuterol 2.5 MG/Ipratropium 0.5 MG 3 ML INH ONE (18:31)
[2018-08-21 18:42] VITALS: BP 150/74
--- NOTE | 2018-08-22 12:26 | UC ---
- Progress Note Progress Note: PATIENT CALLED AND MESSAGE LEFT TO CALL BACK. RADIOLOGY REPORT REVIEWED. STIGMATA OF COPD BUT NO ACUTE PATHOLOGY NOTED. PATIENT IS ON AUGMENTIN FOR QUESTIONABLE PNEUMONIA. GIVEN HER SYMPTOMS AND AGE WOULD CONTINUE THIS MEDICATION PRESCRIBED DESPITE NEGATIVE XRAY. FOLLOW-UP WITH PCP PLANNED NEXT WEEK. GO TO THE ED WITHOUT FAIL IF SX WORSEN. Course/Dx - Diagnoses Provider Diagnoses: RLL pneumonia Discharge - Sign-Out/Discharge Documenting (check all that apply): Post-Discharge Follow Up All imaging exams completed and their final reports reviewed: Yes - Discharge Plan Condition: Stable Disposition: HOME Prescriptions: Amoxicillin/Clavulanate TAB* [Augmentin TAB 875*] 875 mg PO BID #20 tab Patient Education Materials: Pneumonia (ED) Referrals: Keena Isaac MD [Primary Care Provider] - Additional Instructions: If you develop a fever, shortness of breath, chest pain, new or worsening symptoms - please call your PCP or go to the ED. Take your antibiotics. Rest. It is important that you keep your follow up with your Primary Doctor on for a recheck of your symptoms. If you feel worse before that time, please come back to the Urgent Care. - Billing Disposition and Condition Condition: STABLE Disposition: Home
== END 2018-08-21 19:26 | disposition home or self-care (01) ==
LOC: UCEAST 17:32
DX: J18.9 Pneumonia, unspecified organism (principal); Z88.5 Allergy status to narcotic agent
CPT/HCPCS: 71046; 99212; A9270-GY; G0463